=== PATIENT | male | born 1950 | race Caucasian/White ===

== ENCOUNTER → 2016-08-17 | Day surgery (SDC) | payer OTHER ==
[2016-08-11 13:09] VITALS: Ht 175.3 cm; Wt 147.7 kg
[~2016-08-17] VITALS: Ht 175.3 cm; Wt 147.7 kg
[~2016-08-17] MED LIST: ASPCH81X PO; CARB1SOL8 OTB; CLC100 PO; FURO40TA3 PO; GLIP10TA9 PO; LANS30CA12 PO; LIDOCAINE HCL 2% 2 ML VIAL (20MG/ML) ONE; METF-384 PO; MIDAZOLAM HCL 1 MG/ML 2ML VIAL ONE; NITR0.4S UT; PROPOFOL IV EMULSION 10 MG/ML 20 ML VIAL IV ONE; REPA1TAB42 PO; SIMV40TA4 PO; SODIUM CHLORIDE 0.9% 500ML 500 ML IV ONE; VNTHFA/IN INH
[2016-08-17 08:17] VITALS: TEMP 37.4
--- NOTE | 2016-08-17 08:44 | Endo History and Physical ---
History & Physical Date of Service: Aug 17, 2016. Chief Complaint: history of polyps Referring Physician: Sam Quiroz PA-C History of Present Illness history of polyps Past Medical History Diabetes, Arthritis, Fractures, Reflux, Sleep Apnea, Hypertension Past Surgical History Hx Cardiac Surgery: No Hx Internal Defibrillator: No Hx Pacemaker: No Hx Abdominal Surgery: No Hx Post-Op Nausea and Vomiting: No Hx Cancer Surgery: No Hx Thoracic Surgery: No Hx Orthopedic: Yes (RT/LEFT TKA) Hx Urinary Tract Surgery: No Family History Colon CA Social History Smoking Status: Never Smoker Hx Substance Use: No Hx Alcohol Use: No Allergies Coded Allergies: Ether (Verified Adverse Reaction, Mild, VOMITING, 08/11/16) Current Medications Reported Home Medications Medications Dose Route/Sig Max Daily Dose Days Date Category Dose Instructions Lasix (Furosemide) 40 Mg Tab 1.5 Tab PO QAM 08/11/16 Reported Ventolin Hfa (Albuterol) 200 Puffs/25499 Mcg Aers 2-4 Puffs INH Q6H PRN 08/11/16 Reported Prandin (Repaglinide) 1 Mg Tab 1 Mg PO AC 08/11/16 Reported Glucophage (Metformin Hcl) 1,000 Mg Tab 1,000 Mg PO BID 08/11/16 Reported Docusate Sodium 100 Mg Cap 100 Mg PO BID PRN 03/10/14 Reported TAKE WHILE ON NARCOTIC PAIN MEDS. Debrox (Carbamide Peroxide (Otic)) 6.5 % Irena OTB UD PRN 02/27/14 Reported Nitrostat (Nitroglycerin) 0.4 Mg Sub 0.4 Mg UT PRN 07/11/13 Reported NEEDED FOR CHEST PAIN : ONE TABLET UNDER THE TONGUE EVERY 5 MINUTES UP TO 3 DOSES. Glucotrol (Glipizide) 10 Mg Tab 10 Mg PO QPM 07/11/13 Reported TAKE 30 MINUTES BEFORE A MEAL. Zocor (Simvastatin) 40 Mg Tab 40 Mg PO HS 07/11/13 Reported Prevacid (Lansoprazole) 30 Mg Capcr 30 Mg PO QPM 07/11/13 Reported TO TAKE ONCE DAILY BEFORE EVENING MEAL Aspirin Chewable (Aspirin) 81 Mg Chew 81 Mg PO QPM 07/11/13 Reported TAKE WITH FOOD Vital Signs Weight (Kilograms): 147.73 Height (Feet): 5 Height (Inches): 9 Date Time Temp Pulse Resp B/P Pulse Ox O2 Delivery O2 Flow Rate FiO2 08/17/16 08:17 37.4 94 18 158/89 95 Room Air Physical Exam General Appearance: WD/WN, no apparent distress Assessment and Plan colonoscopy today
--- NOTE | 2016-08-17 09:15 | Discharge Instructions ---
Endoscopy Patient Instructions Date / Procedure(s) Performed Aug 17, 2016. Colonoscopy Allergy Information Coded Allergies: Ether (Verified Adverse Reaction, Mild, VOMITING, 08/11/16) Discharge Date / Findings Aug 17, 2016. diverticulosis and hemorrhoids Medication Instructions Stopped Medication(s): no ASA for 2 weeks,last dose Metformin,Prandin,and Glipizide since Tuesday Restart Stopped Medication(s): OK to resume all home medications as above Provider Instructions Activity Restrictions - No exercising or heavy lifting for 24 hours. - Do not drink alcohol the day of the procedure. - Do not drive a car or operate machinery until the day after the procedure. - Do not make any important decisions or sign important papers in 24 hours after the procedure. Following Day: - Return to full activity which may include returning to work/school. Diet Start your diet with liquids and light foods (jello, soup, juice, toast). Then eat your usual diet if not nauseated. Treatment For Common After Affects For mild abdominal pain, bloating, or excessive gas: - Rest - Eat lightly - Lie on right side Follow-Up Information Follow-up with Sam Quiroz PA-C as scheduled Anesthesia Information What You Should Know You have had a procedure that required some medicine to reduce anxiety and discomfort. This treatment is called moderate sedation. After receiving the treatment, you may be sleepy, but you will be able to breathe on your own. The effects of the treatment may last for several hours. Follow these instructions along with Activity/Diet recommendations noted above: * Do NOT do anything where dizziness or clumsiness would be dangerous. * Rest quietly at home today, then you can be up and about tomorrow. * Have a responsible person stay with you the rest of today. * You may have had an I.V. today. If so, you may take the dressing off later today. Recommendations Call your doctor if: * Trouble breathing * Continuous vomiting for more than 24 hours * Temperature above 101 degrees * Severe abdominal pain or bloating * Pain not relieved by pain medicine ordered * There is increased drainage or redness from any incision * A large amount of rectal bleeding greater than 2-3 tablespoons. (If you had a polyp/s removed or have hemorrhoids, a small amount of blood - from the rectum is to be expected.) * You have any unanswered questions or concerns. IN THE EVENT OF A SERIOUS EMERGENCY, GO TO THE NEAREST EMERGENCY ROOM Your discharge instructions were prepared by provider Imani Potts. Patient Instructions Signature Page Roberto Paula Patient (or Guardian) Signature/Date: I have read and understand the instructions given to me by my caregivers. Caregiver/RN/Doctor Signature/Date: The above-named patient and/or guardian has received patient instructions on this date. + Original Patient Signature Page (only) stays with chart. Please make copy for patient.
--- NOTE | 2016-08-17 09:20 | GI REPORT ---
Procedure Date: 08/17/2016 8:43 AM Procedure: Colonoscopy Indications: High risk colon cancer surveillance: Personal history of adenoma with villous component Medicines: Propofol per Anesthesia Complications: No immediate complications. Estimated blood loss: None. Estimated Blood Loss: Estimated blood loss: none. Procedure: Pre-Anesthesia Assessment: - Prior to the procedure, a History and Physical was performed, and patient medications, allergies and sensitivities were reviewed. The patient's tolerance of previous anesthesia was reviewed. - The risks and benefits of the procedure and the sedation options and risks were discussed with the patient. All questions were answered and informed consent was obtained. - Patient identification and proposed procedure were verified prior to the procedure by the physician and the nurse. The procedure was verified in the pre-procedure area in the procedure room. - Mental Status Examination: alert and oriented. Airway Examination: normal oropharyngeal airway and neck mobility. Respiratory Examination: clear to auscultation. CV Examination: normal. Abdominal Examination: bowel sounds present, abdomen soft and non-tender, no masses or organomegaly noted. - ASA Grade Assessment: III - A patient with severe systemic disease. After I obtained informed consent, the scope was passed under direct vision. Throughout the procedure, the patient's blood pressure, pulse, and oxygen saturations were monitored continuously. The Scope was introduced through the anus and advanced to the cecum, identified by appendiceal orifice and ileocecal valve. The colonoscopy was performed without difficulty. The patient tolerated the procedure well. The quality of the bowel preparation was good. Findings: The perianal and digital rectal examinations were normal. Pertinent negatives include normal sphincter tone and no palpable rectal lesions. Multiple small and large-mouthed diverticula were found in the sigmoid colon. Internal hemorrhoids were found during retroflexion. The hemorrhoids were medium-sized and Grade I (internal hemorrhoids that do not prolapse). Impression: - Diverticulosis in the sigmoid colon. - Internal hemorrhoids. - No specimens collected. Recommendation: - Repeat colonoscopy in 3 years for surveillance. - Return to referring physician as previously scheduled. - Discharge patient to home. Imani Potts D.O. Imani Potts DO 08/17/2016 9:19:35 AM This report has been signed electronically. Note Initiated On: 08/17/2016 8:43 AM I attest to the content of the Intraoperative Record and orders documented therein, exceptions below
--- NOTE | 2016-08-17 09:43 | Anesthesiology Progress Note ---
Anesthesia Post Op Note Date & Time Aug 17, 2016 at 09:43 Vital Signs Pain Intensity: 0 Vital Signs Past 12 Hours Date Time Temp Pulse Resp B/P Pulse Ox O2 Delivery O2 Flow Rate FiO2 08/17/16 09:32 100 18 168/77 93 Room Air 08/17/16 09:18 99 16 130/93 95 Diffusion Mask 15 08/17/16 08:17 37.4 94 18 158/89 95 Room Air Notes Mental Status: alert / awake / arousable, participated in evaluation Pt Amnestic to Procedure: Yes Nausea / Vomiting: adequately controlled Pain: adequately controlled Airway Patency, RR, SpO2: stable & adequate BP & HR: stable & adequate Hydration State: stable & adequate Anesthetic Complications: no major complications apparent
[2016-08-17 09:50] VITALS: BP 160/83; PULSE 93; O2SAT 93
== END | disposition home or self-care (01) ==
LOC: C.GI 07:50
PROVIDERS: ATTEND Internal Medicine
DX: Z12.11 Encounter for screening for malignant neoplasm of colon (principal); Z86.010 Personal history of colon polyps; K57.30 Diverticulosis of large intestine without perforation or abscess without bleeding; K64.8 Other hemorrhoids; I10 Essential (primary) hypertension; E11.9 Type 2 diabetes mellitus without complications; Z96.653 Presence of artificial knee joint, bilateral; Z90.89 Acquired absence of other organs; E66.9 Obesity, unspecified; Z68.42 Body mass index [BMI] 45.0-49.9, adult; Z80.0 Family history of malignant neoplasm of digestive organs

== ENCOUNTER 2018-11-24 20:51 | Inpatient (IN) ==
--- OUTSIDE RECORDS SUMMARY | 2018-11-24 20:55 | External Medical Summary | Continuity of Care Document ---
:1950 Author Name Eleni Marshall, Provider Address Unavailable Unavailable , Care Team Providers Name Role Phone [facility] Rolando, Provider Unavailable [email or web address] [email or web address], UNKNOWN Unavailable Unavailable Problems Active medical history not documented Allergies and Adverse Reactions Allergy history not documented Medications Medications not documented Procedures Procedures not documented Immunizations Immunizations not documented Plan of Treatment Planned Observations Planned Goals not documented Results No Known Results Results not documented
[2018-11-24] MEDS ORDERED: SODIUM CHLORIDE 0.9% 1000ML 1,000 ML IV STA (21:47)
[2018-11-24] MEDS ORDERED: VANCOMYCIN CONSULT ACTIVE PRN (21:47)
[2018-11-24] MEDS ORDERED: CEFEPIME 2,000 MG/12.5 ML VIAL IV STA (21:47)
[2018-11-24] MEDS ORDERED: VANCOMYCIN HCL 2,750 MG in SODIUM CHLORIDE 0.9% 500 ML IV ONE (21:47)
[2018-11-24] MEDS ORDERED: ACETAMINOPHEN 500 MG TAB PO STA (21:47)
[2018-11-24] MEDS ORDERED: SODIUM CHLORIDE 0.9% 500 ML IV SCH (22:00)
[2018-11-24 22:17] LABS: Basophils # (auto) 0.01 K/uL (0-0.2); Basophils % (auto) 0.1 %; Eosinophils # (auto) 0.15 K/uL (0-0.5); Hematocrit (blood only) 38.5 % (42-52); Hemoglobin 12.9 g/dL (14.0-18.0); Immature Granulocytes # (auto) 0.03 K/uL (0.00-0.02); Immature Granulocytes % (auto) 0.2 %; Lymphocytes # (auto) 0.38 K/uL (1.2-3.4); Lymphocytes % (auto) 2.6 %; Mean Corpuscular Hgb Conc 33.5 g/dL (32-36); Mean Corpuscular Volume 89.7 fL (80-100); Mean Platelet Volume 9.3 fL (7.4-10.4); Monocytes # (auto) 0.96 K/uL (0.11-0.59); Monocytes % (auto) 6.5 %; Neutrophils # (auto) 13.34 K/uL (1.4-6.5); Neutrophils % (auto) 89.6 %; Platelet Count 238 K/uL (130-400); RDW Coefficient of Variation 14.3 % (11.5-14.5); RDW Standard Deviation 46.9 fL (36.4-46.3); Red Blood Count 4.29 M/uL (4.7-6.1); White Blood Count 14.87 K/uL (4.8-10.8)
[2018-11-24 22:29] LABS: Appearance Urine Clear (Clear); Bilirubin Urine Negative (Negative); Blood Urine Negative (Negative); Color Urine Yellow; Glucose Urine UA 1+ (Negative); Ketones Urine Negative (Negative); Leukocyte Esterase Urine Negative (Negative); Nitrite Urine Negative (Negative); Protein Urine Negative (Negative); Specific Gravity Urine 1.017 (1.000-1.030); Urobilinogen Urine Negative (Negative)
[2018-11-24 22:32] LABS: Alanine Aminotransferase 42 U/L (12-78); Albumin Level 3.5 gm/dl (3.4-5.0); Aspartate Aminotransferase 19 U/L (15-37); BUN Creatinine Ratio 13.3 (10-20); Blood Urea Nitrogen 22 mg/dl (7-18); Calcium 8.1 mg/dl (8.5-10.1); Carbon Dioxide 26 mmol/L (21-32); Chloride 107 mmol/L (98-107); Creatinine Clr Calc Pharmacy 61.5 ml/min; Est GFR (African American) 48.4; Est GFR (Non-African American) 41.7; Glucose 191 mg/dl (70-99); Potassium 4.6 mmol/L (3.5-5.1); Sodium 139 mmol/L (136-145)
--- NOTE | 2018-11-24 22:32 | XRay Report ---
XR chest 1V portable HISTORY: Shortness of breath. COMPARISON: Chest 03/10/2014. FINDINGS: The lungs are clear. Cardiac silhouette is top normal in size. No pleural effusions. No pne umothorax. IMPRESSION: No acute process. Electronically signed by: Chuck Law M.D. 11/24/2018 10:31 PM
[2018-11-24 22:37] LABS: Albumin Globulin Ratio 1.1 (0.9-2); Alkaline Phosphatase 75 U/L (45-117); Bilirubin,Total 0.5 mg/dl (0.2-1); Globulin 3.3 gm/dl (2.5-4.0); Total Protein 6.8 gm/dl (6.4-8.2); Troponin I < 0.015 ng/ml (0-0.045)
[2018-11-24] MEDS ORDERED: OPTIRAY 320 125ml IV PRN (23:27)
[2018-11-25] MEDS ORDERED: IBUPROFEN 200 MG TAB PO STA (01:13)
[2018-11-25] MEDS ORDERED: DOXYCYCLINE HYCLATE 100 MG in DEXTROSE 5% 100 ML IV STA (01:55)
[2018-11-25] MEDS ORDERED: XOPENEX/ATROVENT 1.25mg/0.5MG NEB COMBO NEB STA (01:57)
[2018-11-25] MEDS ORDERED: LEVALBUTEROL 1.25MG/0.5ML NEB INH STA (02:02)
[2018-11-25] MEDS ORDERED: IPRATROPIUM BROMIDE NEB SOLN 0.02% 2.5 ML VIAL INH STA (02:02)
[2018-11-25 02:19] LABS: Magnesium 1.4 mg/dl (1.8-2.4)
[2018-11-25 02:50] LABS: Base Excess ABG -3.3 mEq/L (-9-1.8); HCO3 ABG 22 mmol/L (19-24); Oxygen Saturation ABG 95.3 % (90-95); PCO2 ABG 38 mmHg (35-46); PO2 ABG 77 mm/Hg (80-95); pH ABG 7.37 (7.35-7.45)
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
[2018-11-25 02:54] LABS: Allen Test Pos (Pos)
[2018-11-25] MEDS ORDERED: INSULIN GLARGINE SOLOSTAR 100 UNITS/ML 3 ML PEN SQ STA (03:37)
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
[2018-11-25] MEDS ORDERED: PROMETHAZINE HCL 12.5 MG in SODIUM CHLORIDE 0.9% 50 ML IV PRN (06:09)
[2018-11-25] MEDS ORDERED: GLUCOSE 10 TABS/TUBE PO PRN (06:09)
[2018-11-25] MEDS ORDERED: ACETAMINOPHEN 325 MG TAB PO PRN (06:09)
[2018-11-25] MEDS ORDERED: GLUCAGON FOR INJ 1 MG VIAL SQ PRN (06:09)
[2018-11-25] MEDS ORDERED: NITROGLYCERIN SL 0.4 MG/TAB TAB SL PRN (06:09)
[2018-11-25] MEDS ORDERED: TRAMADOL HCL 50 MG TABLET PO PRN (06:09)
[2018-11-25] MEDS ORDERED: GLUCOSE 40% GEL 15 GM TUBE PO PRN (06:09)
[2018-11-25] MEDS ORDERED: CARBOHYDRATES FOR HYPOGLYCEMIA PO PRN (06:09)
[2018-11-25] MEDS ORDERED: DEXTROSE 50% 50 ML SYRINGE IV PRN (06:09)
[2018-11-25] MEDS ORDERED: SODIUM CHLORIDE 0.9% 1000ML 1,000 ML IV STA (06:22)
[2018-11-25] MEDS ORDERED: LANSOPRAZOLE 30 MG SOLTAB PO ONE (06:30)
[2018-11-25] MEDS ORDERED: ASPIRIN 81 MG ECTAB PO ONE (06:30)
[2018-11-25] MEDS ORDERED: SIMVASTATIN 20 MG TAB PO ONE (06:30)
--- NOTE | 2018-11-25 06:33 | CT Scan Report ---
HEAD CT NONCONTRAST CT DOSE: 1228.53 mGy.cm HISTORY: left facial droop TECHNIQUE: Multiaxial CT images of the head were performed without the use of intravenous contrast. A utomated exposure control was utilized for this study. A dose lowering technique was utilized adheri ng to the principles of ALARA. Comparison: None. Findings: Motion artifact. Fluid level within the right maxillary sinus. Left mastoid effusion. The c alvarium and skull base are intact. The ventricles and sulci are within normal limits. There is no ma ss, hematoma, midline shift, or acute infarct. Impression: 1. Motion artifact. No definite acute intracranial abnormality. 2. Acute right maxillary sinusitis. 3. Left mastoid effusion. Electronically signed by: Chuck Law M.D. 11/25/2018 6:31 AM
[2018-11-25] MEDS: MAGNESIUM SULFATE / D5W 1 GM/100 ML BAG IV SCH ×4 (06:44→16:39)
[2018-11-25] MEDS: LEVALBUTEROL 1.25MG/0.5ML NEB INH SCH ×3 (07:08→18:53)
[2018-11-25] MEDS: IPRATROPIUM BROMIDE NEB SOLN 0.02% 2.5 ML VIAL INH SCH ×3 (07:08→18:53)
--- NOTE | 2018-11-25 07:36 | CT Scan Report ---
CHEST CTA for PULMONARY ARTERIES CT DOSE: 1014.08 mGy.cm HISTORY: Fever. Cough. Short is of breath. PE TECHNIQUE: Multiaxial CT images of the chest were performed following the intravenous administration of contrast to evaluate the pulmonary arteries. Maximal intensity projection images were also obtaine d. A dose lowering technique was utilized adhering to the principles of ALARA. COMPARISON STUDY: Chest CT 03/10/2014. FINDINGS: The visualized liver, spleen, and adrenal glands are unremarkable. The heart is mildly enla rged. Normal soft thickness. No mediastinal lymphadenopathy. A few prominent bilateral hilar lymph no adam remain stable and are likely benign. Normal soft tissue gas. No pleural or pericardial effusions. No evidence for an aortic dissection. No filling defects within the pulmonary arteries to suggest a pulmonary embolus. No suspicious lytic or blastic osseous lesions. No pneumothorax. The central airwa ys are patent. Mild emphysema. A 3 mm nodule within the left upper lobe on image 193. A 4 mm subpleur al nodule within the left lower lobe on image 114. Patchy groundglass densities at the lung bases fav or nondependent change. Otherwise, no focal lung consolidations to suggest pneumonia. IMPRESSION: 1. No evidence for pulmonary embolus. 2. Mild emphysema. 3. Mild cardiomegaly. 4. There are 2 subcentimeter indeterminate pulmonary nodules within the left lung with the largest me asuring 4 mm. Please refer to the chart below for recommended follow-up. Please refer to below summary of Fleischner criteria recommendations for follow-up of incidental CT n odules (Eula Gunderson, Guidelines for management of small pulmonary nodules detected on CT scans: A sta tement from the Fleischner Society, Radiology 237: [phone].) SOLID NODULES Solitary nodule size: <6 mm * Low risk patients: no follow-up needed * high risk patients: optional CT at 12 months Solitary nodule size: 6-8 mm * Low risk patients: follow-up at 6-12 months, then consider further follow-up at 18-24 months * high risk patients: initial follow-up CT at 6-12 months and then at 18-24 months if no change Solitary nodule size: >8 mm * either low or high risk patients - consider follow-up CT at 3 months, and/or CT-PET, and/or biopsy Multiple nodules size: <6 mm * Low risk patients: no routine follow-up * high risk patients: optional CT at 12 months Multiple nodules size: 6-8 mm * Low risk patients: follow-up at 3-6 months, then consider further follow-up at 18-24 months * high risk patients: follow-up at 3-6 months, then at 18-24 months if no change Multiple nodules size: >8 mm * Low risk patients: follow-up at 3-6 months, then consider further follow-up at 18-24 months * high risk patients: follow-up at 3-6 months, then at 18-24 months if no change Note: newly detected indeterminate nodule in persons 35 years of age or older. * Low risk patients: minimal or absent history of smoking and/or other known risk factors * high risk patients: history of smoking or of other known risk factors (e.g. first degree relative with lung cancer, or exposure to asbestos, radon, uranium) * if a nodule up to 8 mm is partly solid or is ground glass further follow-up is required after 24 m onths to exclude possible slow growing adenocarcinoma (DUSTY) SUBSOLID NODULES Solitary pure ground-glass nodule * nodule size <6 mm - no CT follow-up required * nodule size >=6 mm - follow-up CT at 6-12 months, then every 2 years until 5 years Solitary part-solid nodule * nodule size <6 mm - no CT follow-up required * nodule size >=6 mm - follow-up CT at 3-6 months. If unchanged, and solid component remains <6 mm, then annual follow-up for 5 years Multiple subsolid nodules * nodule size <6 mm - follow-up CT at 3-6 months, consider further follow-up at 2 and 4 years if sta ble * nodule size >=6 mm - follow-up CT at 3-6 months, subsequent management based on the most suspiciou s nodule(s) Electronically signed by: Chuck Law M.D. 11/25/2018 7:34 AM
[2018-11-25 07:40] LABS: INR 1.1 (0.9-1.1)
[2018-11-25 07:41] LABS: Partial Thromboplastin Ratio 1.1
[2018-11-25 07:55] LABS: Lyme Ab IgG w/WB Rflx Negative (Negative); Lyme Ab IgM w/WB Rflx Negative (Negative)
[2018-11-25] MEDS ORDERED: XOPENEX/ATROVENT 1.25mg/0.5MG NEB COMBO NEB SCH (08:00)
[2018-11-25] MEDS: INSULIN ASPART 100 UNITS/ML 3 ML PEN SC SCH ×4 (08:26→20:18)
[2018-11-25 08:47] LABS: Est GFR (African American) 54.3; Potassium 4.5 mmol/L (3.5-5.1)
[2018-11-25 08:48] LABS: BUN Creatinine Ratio 13.9 (10-20); Calcium 8.2 mg/dl (8.5-10.1); Creatinine Clr Calc Pharmacy 67.7 ml/min; Est GFR (Non-African American) 46.8; Magnesium 1.6 mg/dl (1.8-2.4)
[2018-11-25 08:50] LABS: Basophils # (auto) 0.01 K/uL (0-0.2); Basophils % (auto) 0.1 %; Hematocrit (blood only) 38.6 % (42-52); Immature Granulocytes # (auto) 0.06 K/uL (0.00-0.02); Immature Granulocytes % (auto) 0.4 %; Lymphocytes # (auto) 0.43 K/uL (1.2-3.4); Lymphocytes % (auto) 2.6 %; Mean Corpuscular Hgb Conc 33.7 g/dL (32-36); Mean Corpuscular Volume 88.9 fL (80-100); Mean Platelet Volume 9.6 fL (7.4-10.4); Monocytes # (auto) 0.39 K/uL (0.11-0.59); Monocytes % (auto) 2.3 %; Neutrophils # (auto) 15.82 K/uL (1.4-6.5); Neutrophils % (auto) 94.6 %; Platelet Count 226 K/uL (130-400); RDW Coefficient of Variation 14.2 % (11.5-14.5); RDW Standard Deviation 46.5 fL (36.4-46.3); Red Blood Count 4.34 M/uL (4.7-6.1); White Blood Count 16.71 K/uL (4.8-10.8)
[2018-11-25] MEDS ORDERED: DOCUSATE SODIUM 100 MG CAP PO PRN (09:00)
[2018-11-25] MEDS: HEPARIN SOD 5,000 UNIT/0.5 ML VIAL SQ SCH ×2 (13:13→21:24)
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
[2018-11-25] MEDS: MAGNESIUM OXIDE 400 MG TAB PO SCH (20:19)
[2018-11-25] MEDS: DOXYCYCLINE HYCLATE 100 MG CAP PO SCH (20:21)
[2018-11-25] MEDS ORDERED: SIMVASTATIN 40 MG TAB PO SCH (21:00)
[2018-11-25] MEDS ORDERED: ASPIRIN 81 MG ECTAB PO SCH (21:00)
[2018-11-25] MEDS ORDERED: LANSOPRAZOLE 30 MG SOLTAB PO SCH (21:00)
[2018-11-26] MEDS: IPRATROPIUM BROMIDE NEB SOLN 0.02% 2.5 ML VIAL INH SCH ×2 (01:56→07:03)
[2018-11-26] MEDS: LEVALBUTEROL 1.25MG/0.5ML NEB INH SCH ×2 (01:56→07:03)
[2018-11-26] MEDS: HEPARIN SOD 5,000 UNIT/0.5 ML VIAL SQ SCH ×2 (05:31→12:14)
[2018-11-26 05:49] LABS: Basophils # (auto) 0.02 K/uL (0-0.2); Basophils % (auto) 0.2 %; Hematocrit (blood only) 37.4 % (42-52); Hemoglobin 12.4 g/dL (14.0-18.0); Immature Granulocytes # (auto) 0.02 K/uL (0.00-0.02); Immature Granulocytes % (auto) 0.2 %; Lymphocytes # (auto) 1.55 K/uL (1.2-3.4); Lymphocytes % (auto) 15.2 %; Mean Corpuscular Hgb Conc 33.2 g/dL (32-36); Mean Corpuscular Volume 89.3 fL (80-100); Mean Platelet Volume 9.1 fL (7.4-10.4); Monocytes # (auto) 0.82 K/uL (0.11-0.59); Monocytes % (auto) 8.1 %; Neutrophils # (auto) 7.66 K/uL (1.4-6.5); Neutrophils % (auto) 75.3 %; Platelet Count 235 K/uL (130-400); RDW Coefficient of Variation 14.4 % (11.5-14.5); RDW Standard Deviation 47.1 fL (36.4-46.3); Red Blood Count 4.19 M/uL (4.7-6.1); White Blood Count 10.17 K/uL (4.8-10.8)
[2018-11-26 06:15] LABS: BUN Creatinine Ratio 16.6 (10-20); Calcium 8.1 mg/dl (8.5-10.1); Creatinine Clr Calc Pharmacy 72.5 ml/min; Est GFR (Non-African American) 50.9; Magnesium 2.5 mg/dl (1.8-2.4); Potassium 4.1 mmol/L (3.5-5.1)
[2018-11-26] MEDS: MAGNESIUM OXIDE 400 MG TAB PO SCH (07:27)
[2018-11-26] MEDS: DOXYCYCLINE HYCLATE 100 MG CAP PO SCH (07:27)
[2018-11-26] MEDS: INSULIN ASPART 100 UNITS/ML 3 ML PEN SC SCH ×2 (08:44→12:14)
[2018-11-26] MEDS ORDERED: LEVALBUTEROL HCL 1.25 MG/3 ML NEB INH PRN ×2 (09:21→09:37)
[2018-11-26] MEDS ORDERED: IPRATROPIUM BROMIDE NEB SOLN 0.02% 2.5 ML VIAL INH PRN (09:35)
[2018-11-26] MEDS ORDERED: LEVALBUTEROL 1.25MG/0.5ML NEB INH PRN (09:37)
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
[2018-11-28 15:49] LABS: EBV Nuclear Ag Antibody < 18.00 U/ML; EBV Virus Capsid Ag IgG Ab < 18.00 U/ML; Epstein Barr Virus Early Ag Ab < 9.00 U/ML
[2018-11-30 23:22] LABS: Ehrlichia chaff DNA Bld Not Detected (Not Detected); Q Fever IgG, Phase I NEGATIVE; Q Fever Phase I IgM Antibody NEGATIVE; Q Fever Phase II IgG Antibody POSITIVE; Q Fever Phase II IgM Antibody NEGATIVE; R. typhi IgG Ab Not Detected (Not Detected); R. typhi IgM Ab Not Detected (Not Detected); RMSF IgG Ab Not Detected (Not Detected); RMSF IgM Ab Not Detected (Not Detected)
== END 2018-11-26 14:30 | disposition home or self-care (01) | DRG 871 ==
LOC: ED 20:51 → 2N 11-25 03:56
DX: I12.9 Hypertensive chronic kidney disease with stage 1 through stage 4 chronic kidney disease, or unspecified chronic kidney disease; D63.1 Anemia in chronic kidney disease; Z79.4 Long term (current) use of insulin; J96.01 Acute respiratory failure with hypoxia; N18.3 Chronic kidney disease, stage 3 (moderate); J40 Bronchitis, not specified as acute or chronic; J18.9 Pneumonia, unspecified organism; E11.22 Type 2 diabetes mellitus with diabetic chronic kidney disease; A41.9 Sepsis, unspecified organism; N17.9 Acute kidney failure, unspecified

== ENCOUNTER 2022-02-11 12:01 | Inpatient (IN) ==
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
--- NOTE | 2022-02-11 12:50 | XRay Report ---
SINGLE VIEW CHEST CLINICAL HISTORY: Atypical chest pain FINDINGS: An AP, portable, upright chest radiograph is compared to study dated 07/20/2021 and correlat ed with chest CT dated 11/24/2018. The heart is enlarged. The pulmonary vasculature is known congestive . Chronic interstitial thickening is similar to previous. Atelectasis is noted the lung bases. The froilan ngs and pleural spaces are otherwise clear. No pneumothorax is seen. The skeletal structures are oste openic. The bony thorax is grossly intact. IMPRESSION: Cardiomegaly with no active disease in the chest. ACT 112: Negative or not required by law. Electronically signed by: Kalia Khan M.D. 02/11/2022 12:49 PM
[2022-02-11 13:03] LABS: Basophils # (auto) 0.02 K/uL (0-0.2); Basophils % (auto) 0.8 %; Eosinophils # (auto) 0.08 K/uL (0-0.50); Eosinophils % (auto) 3.1 %; Hematocrit (blood only) 32.4 % (40.1-51.0); Hemoglobin 10.6 g/dl (14.0-18.0); Immature Granulocytes # (auto) 0.01 K/uL (0.00-0.02); Immature Granulocytes % (auto) 0.4 %; Lymphocytes # (auto) 0.81 K/uL (1.2-3.4); Lymphocytes % (auto) 31.2 %; Mean Corpuscular Hemoglobin 34.4 pg (25.0-34.0); Mean Corpuscular Hgb Conc 32.7 g/dL (32.0-36.0); Mean Corpuscular Volume 105.2 fL (80.0-100.0); Mean Platelet Volume 10.4 fL (9.4-12.4); Monocytes # (auto) 0.34 K/uL (0.24-0.82); Monocytes % (auto) 13.1 %; Neutrophils # (auto) 1.34 K/uL (1.4-6.5); Neutrophils % (auto) 51.4 %; Platelet Count 240 K/uL (130-400); RDW Coefficient of Variation 17.1 % (11.5-14.5); RDW Standard Deviation 65.8 fL (36.4-46.3); Red Blood Count 3.08 M/uL (4.63-6.08)
[2022-02-11 13:14] LABS: INR 1.1 (0.9-1.1); Partial Thromboplastin Time 28.6 Seconds (21.0-31.0); Prothrombin Time 11.6 Seconds (9.0-12.0)
[2022-02-11 13:33] LABS: Troponin I High Sensitivity 25.6 pg/ml (0-20)
[2022-02-11 13:44] LABS: Albumin Level 4.1 gm/dl (3.4-5.0); BUN Creatinine Ratio 15.1 (10-20); Bilirubin Direct 0.1 mg/dl (0-0.2); Bilirubin,Total 0.8 mg/dl (0.2-1.0); Calcium 8.2 mg/dl (8.5-10.1); Creatinine Clr Calc Pharmacy 63.2 ml/min; Est GFR (African American) 54.9 ml/min; Est GFR (Non-African American) 47.4 ml/min; Magnesium 1.2 mg/dl (1.7-2.4); Potassium 4.4 mmol/L (3.5-5.1); Total Protein 6.6 gm/dl (6.0-8.3)
[2022-02-11] MEDS: MAGNESIUM SULFATE / D5W 1 GM/100 ML BAG IV SCH ×4 (13:59→22:26)
[2022-02-11 14:16] LABS: Influenza A virus by PCR Negative (Neg); Influenza B virus by PCR Negative (Neg); RSV by PCR Negative (Neg); SARS CoV2 RNA(COVID-19) InHosp NEGATIVE (Negative)
[2022-02-11] MEDS ORDERED: ASPIRIN 81 MG CHEW PO STA (14:33)
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
--- NOTE | 2022-02-11 16:06 | Electrocardiogram Report ---
Test Reason : Blood Pressure : / mmHG Vent. Rate : 110 BPM Atrial Rate : 110 BPM P-R Int : 176 ms QRS Dur : 084 ms QT Int : 360 ms P-R-T Axes : 047 -41 075 degrees QTc Int : 487 ms Sinus tachycardia with frequent Premature ventricular complexes Left axis deviation Poor R wave progression, consider anterior OH vs. lead placement vs. LVH Abnormal ECG When compared with ECG of 24-NOV-2018 22:12, Premature ventricular complexes are now Present Confirmed by Trent Christie ([id number]) on 02/11/2022 4:06:24 PM Referred By: REFERRED SELF Confirmed By:Trent Christie
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
[2022-02-11] MEDS ORDERED: GLUCOSE 10 TAB/TUBE PO PRN (16:50)
[2022-02-11] MEDS ORDERED: ALUMINUM/MAGNESIUM SUSP 30 ML UDC PO PRN (16:50)
[2022-02-11] MEDS ORDERED: ACETAMINOPHEN 325 MG TAB PO PRN (16:50)
[2022-02-11] MEDS ORDERED: POLYETHYLENE (MIRALAX) 17 GM PACK PO PRN (16:50)
[2022-02-11] MEDS ORDERED: CARBOHYDRATES FOR HYPOGLYCEMIA PO PRN (16:50)
[2022-02-11] MEDS ORDERED: GLUCAGON FOR INJ 1 MG VIAL SQ PRN (16:50)
[2022-02-11] MEDS ORDERED: GLUCOSE 40% GEL 15 GM TUBE PO PRN (16:50)
[2022-02-11] MEDS ORDERED: ALBUTEROL HFA 8 GM INHALER INH PRN (16:50)
[2022-02-11] MEDS ORDERED: DEXTROSE 50% 50 ML SYRINGE IV PRN (16:50)
[2022-02-11] MEDS: INSULIN ASPART PER UNIT SC SCH ×2 (17:19→20:09)
[2022-02-11 18:32] LABS: Magnesium 1.6 mg/dl (1.7-2.4)
[2022-02-11] MEDS: METOPROLOL TARTRATE 25 MG TAB PO SCH (18:35)
[2022-02-11 18:39] LABS: Troponin I High Sensitivity 27.7 pg/ml (0-20)
[2022-02-11] MEDS: LANTUS PER UNIT CHARGE SQ SCH (20:10)
[2022-02-11] MEDS: ENOXAPARIN INJ 40 MG/0.4 ML SYR SQ SCH (20:11)
[2022-02-12] MEDS ORDERED: SODIUM CHLORIDE 0.9% 1000ML 1,000 ML IV SCH
[2022-02-12] MEDS: INSULIN ASPART PER UNIT SC SCH ×4 (07:25→20:54)
[2022-02-12] MEDS: LANTUS PER UNIT CHARGE SQ SCH ×2 (08:05→20:54)
[2022-02-12] MEDS: LORATADINE 10 MG TAB PO SCH ×2 (08:29→20:51)
[2022-02-12] MEDS: lisinopril 10 MG TAB PO SCH (08:29)
[2022-02-12] MEDS: ATORVASTATIN 40 MG TAB PO SCH (08:31)
[2022-02-12] MEDS: CHOLECALCIFEROL 1,000 UNITS 25 MCG TAB PO SCH (08:32)
[2022-02-12] MEDS: CYANOCOBALAMIN (B-12) 500 MCG TABLET PO SCH (08:32)
[2022-02-12] MEDS: METOPROLOL TARTRATE 25 MG TAB PO SCH ×2 (08:33→20:51)
[2022-02-12] MEDS: PANTOprazole 40 MG TAB PO SCH (08:33)
[2022-02-12] MEDS: PYRIDOXINE HCL 50 MG TAB PO SCH (08:33)
[2022-02-12 08:43] LABS: Basophils # (auto) 0.03 K/uL (0-0.2); Basophils % (auto) 0.9 %; Eosinophils # (auto) 0.05 K/uL (0-0.50); Eosinophils % (auto) 1.5 %; Hematocrit (blood only) 32.7 % (40.1-51.0); Hemoglobin 10.8 g/dl (14.0-18.0); Immature Granulocytes # (auto) 0.01 K/uL (0.00-0.02); Immature Granulocytes % (auto) 0.3 %; Lymphocytes # (auto) 0.94 K/uL (1.2-3.4); Lymphocytes % (auto) 28.1 %; Mean Corpuscular Hemoglobin 34.8 pg (25.0-34.0); Mean Corpuscular Volume 105.5 fL (80.0-100.0); Mean Platelet Volume 10.1 fL (9.4-12.4); Monocytes # (auto) 0.46 K/uL (0.24-0.82); Monocytes % (auto) 13.8 %; Neutrophils # (auto) 1.85 K/uL (1.4-6.5); Neutrophils % (auto) 55.4 %; Platelet Count 244 K/uL (130-400); RDW Coefficient of Variation 17.2 % (11.5-14.5); White Blood Count 3.34 K/ul (4.8-10.8)
[2022-02-12] MEDS ORDERED: FUROSEMIDE 20 MG TAB PO SCH (09:00)
[2022-02-12 09:23] LABS: Ferritin 76.4 ng/ml (8-388)
[2022-02-12 09:31] LABS: Folate (Folic Acid) 11.72 ng/ml (>5.38)
[2022-02-12 09:36] LABS: BUN Creatinine Ratio 15.6 (10-20); Calcium 8.7 mg/dl (8.5-10.1); Creatinine Clr Calc Pharmacy 68.4 ml/min; Est GFR (African American) 60.4 ml/min; Est GFR (Non-African American) 52.1 ml/min; Potassium 4.6 mmol/L (3.5-5.1)
[2022-02-12 11:01] LABS: Iron 104 mcg/dl (35-175); Total Iron Binding Cap Calc 297 mcg/dl (250-450); Transferrin (FE) Percent Satur 35 % (20-50); Unsaturated Iron Binding Cap 193 mcg/dl (155-355)
--- NOTE | 2022-02-12 11:33 | Pre Anesthesia Assessment ---
Date of Service February 12, 2022 Pre Sedation Assessment Vital Signs Temp Pulse Pulse Resp BP Pulse Ox O2 Del Method 02/12/22 14:00 36.6 C 82 16 137/72 94 Nasal Cannula 02/12/22 13:46 68 16 132/7 L 98 Room Air 02/12/22 13:29 70 16 140/80 98 Room Air 02/12/22 11:00 36.8 C 77 16 149/78 H 96 02/12/22 11:38 84 18 157/83 H 98 Room Air 02/12/22 08:34 103 H 139/79 02/12/22 06:45 78 02/12/22 06:38 36.7 C 79 18 124/72 90 Room Air 02/12/22 02:45 36.7 C 68 18 120/71 91 Room Air 02/11/22 22:50 36.9 C 71 18 113/69 90 Room Air 02/11/22 20:30 Room Air 02/11/22 19:00 36.8 C 88 18 143/84 H 92 Room Air 02/11/22 16:58 Nasal Cannula 02/11/22 16:28 37.3 C 103 H 24 158/96 H 100 Nasal Cannula O2 Flow Rate 02/12/22 14:00 2 02/12/22 13:46 02/12/22 13:29 02/12/22 11:00 02/12/22 11:38 02/12/22 08:34 02/12/22 06:45 02/12/22 06:38 02/12/22 02:45 02/11/22 22:50 02/11/22 20:30 02/11/22 19:00 02/11/22 16:58 2 02/11/22 16:28 Cardiovascular + regular rate and + regular rhythm + S1 normal and + S2 normal; no murmur + edema (1+ B/L lower extremity edema stasis changes) Respiratory + respiratory effort normal; no respiratory distress and no labored breathing no crackles, no rales, no rhonchi and no wheezes Pre-Sedation Airway Assessment Smoking Status: Never smoker 3 NPO Status Date of Last Intake of Solid Food: 02/11/22 Time of Last Intake of Solid Foods: 22:00 Procedure Planning Contraindications for Sedation: none Current Medications Reviewed: Yes Notes The planned sedation has been discussed with the patient. Informed Consent was obtained. I have identified the patient, determined the appropriateness of sedation and have assessed the patient immediately prior to the procedure. All medicine(s) and interventions are by my order.
[2022-02-12] MEDS ORDERED: fentaNYL citrate 100 MCG/2 ML VIAL ONE (12:00)
[2022-02-12] MEDS ORDERED: MIDAZOLAM HCL 1 MG/ML 2ML VIAL ONE (12:00)
[2022-02-12] MEDS ORDERED: niCARdipine HCL INJ 2.5 MG/ML 10 ML AMP ONE (12:00)
[2022-02-12] MEDS ORDERED: HEPARIN (PORCINE) 1000 UNIT/ML 10 ML (CATH LAB USE ONLY) ONE (12:00)
[2022-02-12] MEDS ORDERED: NITROGLYCERIN/D5W 100MCG/ML 20ML SYR ONE (12:01)
--- NOTE | 2022-02-12 12:50 | Post Anesthesia Assessment ---
Date of Service February 12, 2022 Post Sedation Assessment Vital Signs Temp Pulse Pulse Resp BP Pulse Ox O2 Del Method 02/12/22 14:00 36.6 C 82 16 137/72 94 Nasal Cannula 02/12/22 13:46 68 16 132/7 L 98 Room Air 02/12/22 13:29 70 16 140/80 98 Room Air 02/12/22 11:00 36.8 C 77 16 149/78 H 96 02/12/22 11:38 84 18 157/83 H 98 Room Air 02/12/22 08:34 103 H 139/79 02/12/22 06:45 78 02/12/22 06:38 36.7 C 79 18 124/72 90 Room Air 02/12/22 02:45 36.7 C 68 18 120/71 91 Room Air 02/11/22 22:50 36.9 C 71 18 113/69 90 Room Air 02/11/22 20:30 Room Air 02/11/22 19:00 36.8 C 88 18 143/84 H 92 Room Air 02/11/22 16:58 Nasal Cannula 02/11/22 16:28 37.3 C 103 H 24 158/96 H 100 Nasal Cannula O2 Flow Rate 02/12/22 14:00 2 02/12/22 13:46 02/12/22 13:29 02/12/22 11:00 02/12/22 11:38 02/12/22 08:34 02/12/22 06:45 02/12/22 06:38 02/12/22 02:45 02/11/22 22:50 02/11/22 20:30 02/11/22 19:00 02/11/22 16:58 2 02/11/22 16:28 Recovery Score Activity: Moves 4 extremities Respiration: Deep Breath/Cough Circulation: +/-20% PreAnes Value Consciousness: Arouseable (by name) Oxygen Saturation: O2 needed for >90% Discharge Sedation Level of Care: Phase I Post Sedation Plan On clinical assessment, the patient appears to have tolerated the sedation without complications. Patient is recovering as anticipated. Patient will continue to be monitored by nursing and may be discharged when sedation discharge criteria are met per below protocol. Upon Completions of procedure up to 15 minutes continue every 5 minute vital signs and the P.A.R. score; then discharge to a Phase I or Fast Track to Phase II per the following guidelines: * Discharge Patient to appropriate Phase II area if PAR is 8 or greater or return to pre- procedure baseline. The post - procedure orders will be as directed. * If PAR score is less than 8 or not return to pre-procedure baseline then patient will follow Phase I monitoring till PAR is reached for Phase II. The Phase I may be done in procedure room or may call to secure a Phase I area. * If naloxone or flumazenil are used for reversal, hold in Phase I for continued monitoring from when last reversal dose was given for a minimum of 60 minutes or longer pending the nurse and/or physician discretion of patient condition before discharge to Phase II. Please call the Sedation Physician to re-evaluate and complete post-note for discharge to Phase II area. Do NOT discharge from procedure sedation or Phase 1 until post- sedation evaluation note is complete by procedure /sedation MD Sedation Discharge Instructions to be given to the patient at discharge to home.
--- NOTE | 2022-02-12 12:52 | Cardiac Catheterization ---
Cardiac Cath Procedure Full Procedure Date February 12, 2022 Pre-Procedure Diagnosis Pre-Procedure Diagnosis: Angina, CHF and Arrhythmia AUC Score AUC Score: 8 Post-Procedure Diagnosis Post-Procedure Diagnosis: Moderate CAD and Elevated Intracardiac Pressures Procedure(s) Performed Procedure(s) Performed: Coronary Angiography and Left Heart Cath Final Application Reviewer Avila Ervin DO Accounting Advisory Services Manager(s) [place]inton RTR Estimated Blood Loss Estimated Blood Loss: 5cc Medication(s) Medication(s): Fentanyl, Heparin, Lidocaine 1%, Nicardipine, Nitroglycerin and Versed Summary of Findings Right dominant coronary anatomy. Left main cannulated with a Eden multipurpose catheter. The left main trifurcates in left anterior descending, ramus intermedius, left circumflex arteries. The distal left main demonstrates a mild, 20% taper. The proximal segment of the left anterior descending artery demonstrates a moderate stenosis ranging up to 50% in severity. Stenosis may be more severe when visualized in caudal views. The mid to distal left anterior descending artery demonstrates mild luminal irregularities stenosis ranging up to 10%. The LAD gives rise to 2 diagonal branch vessels which demonstrate mild luminal irregularities, 10%. Ramus intermedius is a moderate caliber vessel. There are mild luminal irregularities in the midsegment with stenosis ranging up to 20%. Left circumflex is a large nondominant vessel giving rise to a high obtuse marginal branch vessel. Left circumflex and obtuse marginal branch vessel are free of significant obstructive disease. The right coronary artery is a large dominant vessel giving rise to posterior descending and posterior lateral branch artery. The right coronary artery demonstrates diffuse luminal irregularities with stenosis ranging from 10-20%. The posterior descending artery is a large vessel with mild luminal irregularities. The right posterior lateral branch vessel is also a large-caliber vessel and free of significant obstructive disease. Hemodynamics Rest Ao:: 136/76/113 Final Ao: 140/67/95 LV: 140/13/19 Recommendations Recommendations: Management Recommendatons (FFR LAD) Specimens Specimens: None Radiation Exposure (mGy) 1877 Contrast (mls) 60 Fluids (cc crystalloids) Fluids (cc crystalloids): 100 Nss Drains Drains: N/A Anesthesia Moderate sedation. Start 1215. End 1245. Sedation monitor, Luis WALTERS Procedural Complication(s) None Disposition recyclable materials collector for FFR I attest to the content of the Intraoperative Record and any orders documented therein. Any exceptions are noted below. ACC Data: Offset Plate Maker Cardiac Status Clinical evaluation leading to the procedure 71-year-old patient presented with exertional angina, class II-III. Due to significant risk factors, cardiac catheterization recommended for coronary angiography and left heart catheterization. CAD Presenation: Stable angina Diagnostic Physicians Name: Avila Ervin DO Closure Device Percutaneous Entry Location: Radial Closure Device: Radial Band Recommendations: Management Recommendatons (FFR LAD) Intraprocedure Events Significant Disection: No Perforation: No
[2022-02-12] MEDS ORDERED: ADENOSINE IV SOLN 3 MG/ML 20 ML VIAL IV ONE (12:53)
--- NOTE | 2022-02-12 14:04 | Cardiac Catheterization ---
[facility] Data: Scientific Informatics Leader Cardiac Status Clinical evaluation leading to the procedure CAD Presenation: Stable angina Diagnostic Physicians Name: Matias Alvarez MD, PhD Closure Device Recommendations: Medical Therapy and/or Counseling (Guideline directed medical therapy for secondary prevention of coronary disease. If refractory symptoms can consider PCI or transfer to tertiary center for additional evaluation.) Cardiac Cath Procedure Full Procedure Date February 12, 2022 Pre-Procedure Diagnosis Pre-Procedure Diagnosis: Angina, CHF and Arrhythmia AUC Score AUC Score: 8 Post-Procedure Diagnosis Post-Procedure Diagnosis: Moderate CAD and Elevated Intracardiac Pressures Procedure(s) Performed Procedure(s) Performed: IVUS and Fractional Flow [place] Helper Matias Alvarez MD, PhD Mortgage Originator(s) Quinton RTR Estimated Blood Loss Estimated Blood Loss: 5cc Medication(s) Medication(s): Fentanyl, Heparin, Lidocaine 1%, Nicardipine, Nitroglycerin and Versed Summary of Findings Brief description: Patient was already on the table with a right radial artery sheath in place. Diagnostic coronary angiography was performed by Dr. Avila Ervin. Patient had a angiographically intermediate lesion in the LAD. I was asked to evaluate further. We proceeded first with Pa/Pd (analysis). ACT was checked and additional IV heparin was provided. A 6 Irish EBU 3.0 guide catheter was used to engage the left main coronary. Through this, a BMW universal guidewire was advanced and positioned distally in the LAD. Coronary angiography was also performed. Then, the Navvus microcatheter was advanced and positioned with the transducer at the distal catheter tip. The system was flushed with normal saline and pressures were equalized. The microcatheter was then advanced beyond the lesion in the mid LAD. PD/PA analysis was performed and was borderline significant. We then performed FFR using infusion of adenosine at 140 mcg/kg/min. Peak FFR was measured. We next decided to evaluate using the IVUS catheter. The microcatheter was removed. The [employer] IVUS catheter was then advanced. Distal left main was evaluated and had mild plaque. Then, the lesion in the mid LAD was evaluated. Minimal luminal area was measured twice. IVUS catheter was then removed from the patient. The guide catheter was then removed. Radial artery sheath was removed. Hemostasis was obtained using the TR band. Patient remained hemodynamically stable and asymptomatic. He was returned to the recovery area. This ended the case. Findings: Resting Pd/Pa: 0.92, this is borderline significant. FFR analysis: 0.75, this is considered hemodynamically significant. IVUS MLA: 5.3 mm, 5.5 mm. These are not considered hemodynamically significant. These results are equivocal. Angiographically the mid LAD appears to have no more than 50% stenosis but is tortuous. The resting Pd/Pa and FFR with Navvus catheter are surrogates for Doppler wave wire analysis (IFR/FFR respectively). However, the IVUS did not show MLA considered to be significant (3.0 mm for proximal LAD, 2.75 mm for mid and distal LAD). The tortuosity in this segment may have affected either the Navvus catheter results or the IVUS results. In either case, guideline directed medical therapy as first-line is recommended. If symptoms remain refractory then alternative hemodynamic evaluation (FFR/IFR using Doppler wave wire) or PCI to the segment can be considered. Hemodynamics Rest Ao:: 144/70 mmHg, mean 105 mmHg Final Ao: 122/78 mmHg, mean 97 mmHg LV: Not performed Recommendations Recommendations: Medical Therapy and/or Counseling (Guideline directed medical therapy for secondary prevention of coronary disease. If refractory symptoms can consider PCI or transfer to tertiary center for additional evaluation.) Specimens Specimens: None Radiation Exposure (mGy) 2718, 13.7 minutes fluoroscopy time Contrast (mls) 100 mL Fluids (cc crystalloids) Fluids (cc crystalloids): 100 Nss Drains Drains: N/A Procedural Complication(s) None Disposition Recovery Room\PACU I attest to the content of the Intraoperative Record and any orders documented therein. Any exceptions are noted below. PG Care Time/CCT Total # of Minutes Spent Total Time Spent with Patient: Total time spent is greater than 50% in coordination of care (as documented) at patient's floor/unit and/or counseling patient:
--- NOTE | 2022-02-12 14:11 | Cardiology Progress Note ---
Date of Service February 12, 2022 Assessment & Plan (1) Exertional angina: (2) Elevated troponin: (3) RAMOS (dyspnea on exertion): (4) Cardiomyopathy: (5) Frequent PVCs: (6) CKD (chronic kidney disease) stage 3, GFR 30-59 ml/min: (7) Hypoxia: (8) Anemia, macrocytic: Plan Results of cardiac catheterization discussed with family and patient. PCI not recommended by interventional cardiology at this time. Medical management recommended. At Imdur 30 mg daily. Titrate Lasix to 40 mg daily beginning in a.m. Continue metoprolol tartrate with transition to succinate formulation at time of discharge. Patient instructed to avoid use of [id number] weight loss pills and other stimulants. Further evaluation of cardiomyopathy with SPEP, UPEP, free light chains, and serum ferritin. Admission and Anticipated Discharge Date Admission Date: February 11, 2022 Subjective Patient seen and examined at the bedside. Cardiac catheterization demonstrating moderate proximal LAD. See separate report. Review of Systems Review of Systems: All systems reviewed & are unremarkable except as noted in Subjective Physical Exam Constitutional: well nourished and + obese; no acute distress Respiratory: normal respiratory effort; no respiratory distress and no labored breathing Auscultation: no crackles, no rales, no rhonchi and no wheezes Cardiovascular: Rate/Rhythm: regular rate and regular rhythm Heart Sounds: normal S1 and normal S2; no murmur Vessels: femoral pulses present and radial pulses present; no JVD Extremities: + edema (1+ B/L lower extremity edema stasis changes) Gastrointestinal (Abdomen): Inspection/Auscultation: abdomen not distended Percussion/Palpation: abdomen soft; abdomen nontender, no guarding and abdomen not rigid Neurologic: CN's II-XI intact bilaterally and moves all extremities; no focal motor deficits Psychiatric: A+Ox3, euthymic affect Results & Data ([facility]) Vital Signs (Past 12 Hours) Vital Signs Temp Pulse Pulse Resp BP Pulse Ox O2 Del Method 02/12/22 14:00 36.6 C 82 16 137/72 94 Nasal Cannula 02/12/22 13:46 68 16 132/7 L 98 Room Air 02/12/22 13:29 70 16 140/80 98 Room Air 02/12/22 11:00 36.8 C 77 16 149/78 H 96 02/12/22 11:38 84 18 157/83 H 98 Room Air 02/12/22 08:34 103 H 139/79 02/12/22 06:45 78 02/12/22 06:38 36.7 C 79 18 124/72 90 Room Air 02/12/22 02:45 36.7 C 68 18 120/71 91 Room Air O2 Flow Rate 02/12/22 14:00 2 02/12/22 13:46 02/12/22 13:29 02/12/22 11:00 02/12/22 11:38 02/12/22 08:34 02/12/22 06:45 02/12/22 06:38 02/12/22 02:45
[2022-02-12] MEDS: ISOSORBIDE MONO EXTENDED REL 30 MG TABCR PO SCH (16:07)
--- NOTE | 2022-02-12 16:19 | Hospitalist Progress Note ---
Date of Service February 12, 2022 Assessment & Plan (1) Exertional angina: Plan: Non-obstructive CAD on heart catheterization today. Trial of Imdur started. (2) Cardiomyopathy: Plan: some cardiac disease present on catheterization today. Further workup for etiology per cardiology. SPEP, UPEP, free light chains pending. Increased furosemide from 20mg daily to 40mg daily. (3) Hypoxia: Plan: persistent, will try to wean as tolerated to room air. (4) Elevated troponin: Plan: workup as above. (5) DM (diabetes mellitus): Plan: well controlled hold outpt meds of metformin, glipizide an prandin placed on lantus/novolog per protocol monitor bsgs which are at goal (6) HTN (hypertension): Plan: chronic, controlled. Cont current medications. (7) HLD (hyperlipidemia): Plan: chronic, stable. Cont atorvastatin per home regimen. (8) CKD (chronic kidney disease), stage III: Plan: chronic, stable. (9) Anemia, macrocytic: Plan: worsening macrocytic anemia. B12/folate level good SPEP/UPEP ordered Hemoglobin and hematocrit 10.6 and 32.4 Last hemoglobin on 07/27/2021 was 13.7 Last colonoscopy 03/2020 revealed adenomatous polyps, repeat 3 years Cont to monitor and would send to hematology for continued workup after discharge if current workup is unrevealing. (10) DVT prophylaxis: Plan: Lovenox Dispo: PCU FULL CODE PCP: Sam Quiroz PA-C I spoke with his at bedside and sent phone message updating his daughter, Jena, both before and after the heart catheterization. Likely to home in am. Lilliana Zamora DO [facility] Hospitalist Admission and Anticipated Discharge Date Admission Date: February 11, 2022 Subjective 71-year-old diabetic man who presented with persistent and worsened exertional angina Denies any chest pain overnight Troponin is elevated serially but not rising He is n.p.o. after midnight in preparation for heart cath this morning. Denies any shortness of breath. chronic diarrhea reported for >3 months. Review of Systems Review of Systems: All systems reviewed negative except as indicated above. Physical Exam Physical Exam: CONSTITUTIONAL: obese, vitals as above, generally well- appearing, NAD EYES: normal conjunctivae, no scleral icterus ENT: external ear and nose normal, MMM NECK: trachea midline RESPIRATORY: clear to auscultation bilaterally, no crackles, rales or wheezes, normal respiratory effort CARDIOVASCULAR: regular rate and rhythm, S1 and 2 heard without murmurs, gallops or rubs, no JVD, no peripheral edema CHEST: inspection of chest was normal GASTROINTESTINAL: soft, nontender, no guarding MUSCULOSKELETAL: strength 5/5 throughout, head is normocephalic and atraumatic SKIN: warm and dry NEUROLOGIC: CN 2-12 grossly intact, no sensory deficit, normal cognition, nor mal speech, no tremor PSYCHIATRIC: alert cooperative and oriented to person, place and time. Results & Data Results & Data ([facility]) Vital Signs (Past 12 Hours) Vital Signs Temp Pulse Pulse Resp BP Pulse Ox O2 Del Method 02/12/22 16:00 82 16 137/77 94 Nasal Cannula 02/12/22 15:30 36.5 C 82 16 141/76 H 94 Nasal Cannula 02/12/22 15:00 36.6 C 84 18 135/75 93 Nasal Cannula 02/12/22 14:45 36.4 C L 87 16 143/77 H 95 Room Air 02/12/22 14:30 36.5 C 77 18 126/75 94 Room Air 02/12/22 14:15 36.6 C 79 16 130/79 96 Nasal Cannula 02/12/22 14:00 36.6 C 82 16 137/72 94 Nasal Cannula 02/12/22 13:46 68 16 132/7 L 98 Room Air 02/12/22 13:29 70 16 140/80 98 Room Air 02/12/22 11:00 36.8 C 77 16 149/78 H 96 02/12/22 11:38 84 18 157/83 H 98 Room Air 02/12/22 08:34 103 H 139/79 02/12/22 06:45 78 02/12/22 06:38 36.7 C 79 18 124/72 90 Room Air O2 Flow Rate 02/12/22 16:00 2 02/12/22 15:30 2 02/12/22 15:00 2 02/12/22 14:45 02/12/22 14:30 02/12/22 14:15 2 02/12/22 14:00 2 02/12/22 13:46 02/12/22 13:29 02/12/22 11:00 02/12/22 11:38 02/12/22 08:34 02/12/22 06:45 02/12/22 06:38 Laboratory Results Short CBC 02/12/22 Range/Units 08:19 WBC 3.34 L (4.8-10.8) K/ul Hgb 10.8 L (14.0-18.0) g/dl Hct 32.7 L (40.1-51.0) % Plt Count 244 (130-400) K/uL BMP 02/12/22 08:19 Sodium 140 Potassium 4.6 Chloride 107 Carbon Dioxide 26 BUN 21 Creatinine 1.35 Glucose 81 Calcium 8.7 Medications Administered Current Inpatient Medications Acetaminophen (Acetaminophen 325 Mg Tab) 650 mg PO Q4H PRN PRN Reason: Pain or Fever Stop: 03/13/22 16:49 Al Hydrox/Mg Hydrox/Simethicone (Aluminum/Magnesium Susp 30 Ml Udc) 15 ml PO Q4H PRN PRN Reason: Dyspepsia Stop: 03/13/22 16:49 Albuterol (Albuterol Hfa 8 Gm Inhaler) 1 puffs INH QID PRN PRN Reason: sob Stop: 03/13/22 16:49 Aspirin (Aspirin 81 Mg Ectab) 81 mg PO DAILY JAQUI Stop: 03/15/22 08:59 Atorvastatin Calcium (Atorvastatin 40 Mg Tab) 40 mg PO DAILY JAQUI Stop: 03/14/22 08:59 Last Admin: 02/12/22 08:31 Dose: 40 mg Cyanocobalamin (Cyanocobalamin (B-12) 500 Mcg Tablet) 1,000 mcg PO DAILY JAQUI Stop: 03/14/22 08:59 Last Admin: 02/12/22 08:32 Dose: 1,000 mcg Dextrose (Dextrose 50% 50 Ml Syringe) 25 - 50 ml IV UD PRN; Protocol PRN Reason: Hypoglycemia Protocol Stop: 03/13/22 16:49 Enoxaparin Sodium (Enoxaparin Inj 40 Mg/0.4 Ml Syr) 40 mg SQ HS JAQUI Stop: 03/13/22 20:59 Last Admin: 02/11/22 20:11 Dose: 40 mg Furosemide (Furosemide 40 Mg Tab) 40 mg PO QAM JAQUI Stop: 03/15/22 08:59 Glucagon (Glucagon For Inj 1 Mg Vial) 1 mg SQ UD PRN; Protocol PRN Reason: Hypoglycemia Protocol Stop: 03/13/22 16:49 Glucose (Glucose 40% Gel 15 Gm Tube) 15 - 30 gm PO UD PRN; Protocol PRN Reason: Hypoglycemia Protocol Stop: 03/13/22 16:49 Glucose (Glucose 10 Tab/Tube) 4 - 8 tab PO UD PRN; Protocol PRN Reason: Hypoglycemia Treatment Stop: 03/13/22 16:49 Sodium Chloride (Nss 1000ml) 1,000 mls @ 80 mls/hr IV .[id number] [facility] Stop: 03/14/22 00:00 Last Infusion: 02/12/22 11:10 Dose: 0 mls/hr Insulin Aspart (Insulin Aspart Per Unit) 0 units SC ACHS [facility] Stop: 03/13/22 16:49 Last Admin: 02/12/22 14:43 Dose: Not Given Insulin Glargine (Lantus Per Unit Charge) 0 units SQ BID [facility]; Protocol Stop: 03/13/22 20:59 Last Admin: 02/12/22 08:05 Dose: Not Given Isosorbide Mononitrate (Isosorbide Russell Extended Rel 30 Mg Tabcr) 30 mg PO QAM [facility] Stop: 03/14/22 14:14 Last Admin: 02/12/22 16:07 Dose: 30 mg Lisinopril (Lisinopril 10 Mg Tab) 10 mg PO DAILY [facility] Stop: 03/14/22 08:59 Last Admin: 02/12/22 08:29 Dose: 10 mg Loratadine (Loratadine 10 Mg Tab) 10 mg PO DAILY [facility] Stop: 03/14/22 08:59 Last Admin: 02/12/22 08:29 Dose: 10 mg Metoprolol Tartrate (Metoprolol Tartrate 25 Mg Tab) 25 mg PO BID [facility] Stop: 03/13/22 16:59 Last Admin: 02/12/22 08:33 Dose: 25 mg Miscellaneous (Carbohydrates For Hypoglycemia ) 15 - 30 gm PO UD PRN PRN Reason: Hypoglycemia Protocol Stop: 03/13/22 16:49 Pantoprazole Sodium (Pantoprazole 40 Mg Tab) 40 mg PO DAILY [facility]; Protocol Stop: 03/14/22 08:59 Last Admin: 02/12/22 08:33 Dose: 40 mg Polyethylene Glycol (Polyethylene (Miralax) 17 Gm Pack) 17 gm PO DAILY PRN PRN Reason: Constipation Stop: 03/13/22 16:49 Pyridoxine HCl (Pyridoxine Hcl 50 Mg Tab) 100 mg PO DAILY [facility] Stop: 03/14/22 08:59 Last Admin: 02/12/22 08:33 Dose: 100 mg Vitamin D (Cholecalciferol 1,000 Units 25 Mcg Tab) 2,000 units PO QAM [facility] Stop: 03/14/22 08:59 Last Admin: 02/12/22 08:32 Dose: 2,000 units
[2022-02-12] MEDS: ENOXAPARIN INJ 40 MG/0.4 ML SYR SQ SCH (20:51)
[2022-02-12] MEDS ORDERED: ASPIRIN 81 MG ECTAB PO SCH (21:00)
[2022-02-12] MEDS ORDERED: METOPROLOL TARTRATE 1 MG/ML VIAL IV STA (23:08)
[2022-02-13] MEDS: INSULIN ASPART PER UNIT SC SCH ×2 (07:22→11:28)
[2022-02-13 07:27] LABS: Basophils # (auto) 0.03 K/uL (0-0.2); Basophils % (auto) 0.7 %; Eosinophils # (auto) 0.12 K/uL (0-0.50); Eosinophils % (auto) 2.8 %; Hematocrit (blood only) 31.7 % (40.1-51.0); Hemoglobin 10.6 g/dl (14.0-18.0); Immature Granulocytes # (auto) 0.01 K/uL (0.00-0.02); Immature Granulocytes % (auto) 0.2 %; Lymphocytes # (auto) 1.25 K/uL (1.2-3.4); Lymphocytes % (auto) 28.9 %; Mean Corpuscular Hgb Conc 33.4 g/dL (32.0-36.0); Mean Corpuscular Volume 104.6 fL (80.0-100.0); Monocytes # (auto) 0.68 K/uL (0.24-0.82); Monocytes % (auto) 15.7 %; Neutrophils # (auto) 2.23 K/uL (1.4-6.5); Neutrophils % (auto) 51.7 %; Platelet Count 280 K/uL (130-400); Red Blood Count 3.03 M/uL (4.63-6.08); White Blood Count 4.32 K/ul (4.8-10.8)
[2022-02-13 08:13] LABS: BUN Creatinine Ratio 17.4 (10-20); Calcium 8.5 mg/dl (8.5-10.1); Creatinine Clr Calc Pharmacy 61.9 ml/min; Est GFR (African American) 53.6 ml/min; Est GFR (Non-African American) 46.2 ml/min; Magnesium 1.9 mg/dl (1.7-2.4); Potassium 4.4 mmol/L (3.5-5.1)
--- NOTE | 2022-02-13 08:58 | XRay Report ---
XR chest 1V portable HISTORY: 71 years-old Male hypoxia acute hypoxia COMPARISON: Chest radiograph 02/11/2022 TECHNIQUE: AP view of the chest FINDINGS: Cardiac silhouette is enlarged. There is no pneumothorax or large pleural effusion. Pulmonary vascula r congestion. Ill-defined left basilar and left perihilar predominant opacities. Degenerative changes of the shoulders and spine. IMPRESSION: 1. Cardiomegaly with pulmonary vascular congestion. 2. Mild left basilar opacities may represent atelectasis versus pneumonitis. ACT 112: Negative or not required by law. The above report was generated using voice recognition software. It may contain grammatical, syntax o r spelling errors. Electronically signed by: Michel Juan M.D. 02/13/2022 8:57 AM
[2022-02-13] MEDS ORDERED: FUROSEMIDE 40 MG TAB PO SCH (09:00)
[2022-02-13] MEDS ORDERED: ASPIRIN 81 MG ECTAB PO SCH (09:00)
[2022-02-13] MEDS: LANTUS PER UNIT CHARGE SQ SCH (09:08)
[2022-02-13] MEDS: METOPROLOL TARTRATE 25 MG TAB PO SCH (09:11)
[2022-02-13] MEDS: lisinopril 10 MG TAB PO SCH (09:11)
[2022-02-13] MEDS: PYRIDOXINE HCL 50 MG TAB PO SCH (09:12)
[2022-02-13] MEDS: PANTOprazole 40 MG TAB PO SCH (09:12)
[2022-02-13] MEDS: CHOLECALCIFEROL 1,000 UNITS 25 MCG TAB PO SCH (09:12)
[2022-02-13] MEDS: CYANOCOBALAMIN (B-12) 500 MCG TABLET PO SCH (09:12)
[2022-02-13] MEDS: ATORVASTATIN 40 MG TAB PO SCH (09:13)
[2022-02-13 09:32] LABS: Estimated Average Glucose 137 mg/dl; Hemoglobin A1C 6.4 % (4.5-5.6)
[2022-02-13] MEDS: ISOSORBIDE MONO EXTENDED REL 30 MG TABCR PO SCH (10:34)
--- NOTE | 2022-02-13 11:35 | Cardiology Progress Note ---
Date of Service February 13, 2022 Assessment & Plan (1) Exertional angina: (2) Elevated troponin: (3) RAMOS (dyspnea on exertion): (4) Cardiomyopathy: (5) Frequent PVCs: (6) CKD (chronic kidney disease) stage 3, GFR 30-59 ml/min: (7) Hypoxia: (8) Anemia, macrocytic: Plan Results of cardiac catheterization discussed with family and patient. PCI not recommended by interventional cardiology at this time. Medical management recommended. At Imdur 30 mg daily. Titrate Lasix to 40 mg daily beginning in a.m. Continue metoprolol tartrate with transition to succinate formulation at time of discharge. Patient instructed to avoid use of [id number] weight loss pills and other stimulants. Further evaluation of cardiomyopathy with SPEP, UPEP, free light chains, and serum ferritin Patient stable for discharge on medication adjustments as made. Metoprolol tartrate switched to metoprolol succinate 25 mg twice per day. Will need cardiology follow-up in 1 to 2 weeks CHF instructions Admission and Anticipated Discharge Date Admission Date: February 13, 2022 Subjective Patient seen and examined, chart, medications, telemetry reviewed. No complaints this morning ambulatory in room. Telemetry as in past demonstrated bigeminy at night. No chest pains or shortness of breath. No tachypalpitations syncope or near syncope. Results of cardiac catheterization reviewed Review of Systems Review of Systems: All systems reviewed & are unremarkable except as noted in Subjective Physical Exam Constitutional: well nourished and + obese; no acute distress Respiratory: normal respiratory effort; no respiratory distress and no labored breathing Auscultation: no crackles, no rales, no rhonchi and no wheezes Cardiovascular: Rate/Rhythm: regular rate and regular rhythm Heart Sounds: normal S1 and normal S2; no murmur Vessels: femoral pulses present and radial pulses present; no JVD Extremities: + edema (1+ B/L lower extremity edema stasis changes) Gastrointestinal (Abdomen): Inspection/Auscultation: abdomen not distended Percussion/Palpation: abdomen soft; abdomen nontender, no guarding and abdomen not rigid Neurologic: CN's II-XI intact bilaterally and moves all extremities; no focal motor deficits Psychiatric: A+Ox3, euthymic affect Results & Data ([facility]) Vital Signs (Past 12 Hours) Vital Signs Temp Pulse Resp BP Pulse Ox O2 Del Method 09/24/22 06:27 37.1 C 83 18 130/73 90 Room Air 02/13/22 02:53 36.9 C 79 18 110/65 90 Room Air Laboratory Results Laboratory Results - last 24 hr 02/12/22 02/12/22 02/12/22 08:19 13:19 14:41 WBC RBC Hgb Hct MCV MCH MCHC RDW Std Deviation RDW Coeff of Lasha Plt Count MPV Immature Gran % (Auto) Neut % (Auto) Lymph % (Auto) Nicollet % (Auto) Eos % (Auto) Baso % (Auto) Neut # (Auto) Lymph # (Auto) Nicollet # (Auto) Eos # (Auto) Baso # (Auto) Immature Gran # (Auto) Activ Coag Time Kaolin 208 H Sodium Potassium Chloride Carbon Dioxide Anion Gap BUN Creatinine Est Cr Clr Drug Dosing Est GFR ( Amer) Est GFR (Non-Af Amer) BUN/Creatinine Ratio Glucose POC Glucose 81 Estimat Average Glucose Hemoglobin A1c Calcium Magnesium Triglycerides Cholesterol LDL Cholesterol, Calc VLDL Cholesterol, Calc HDL Cholesterol Cholesterol/HDL Ratio Urine Immunofixation Hepatitis C Ab (EIA) NON-REACTIVE Hep C Ab Signal/Cutoff 0.12 02/12/22 02/12/22 02/12/22 16:56 20:07 21:00 WBC RBC Hgb Hct MCV MCH MCHC RDW Std Deviation RDW Coeff of Lasha Plt Count MPV Immature Gran % (Auto) Neut % (Auto) Lymph % (Auto) Nicollet % (Auto) Eos % (Auto) Baso % (Auto) Neut # (Auto) Lymph # (Auto) Nicollet # (Auto) Eos # (Auto) Baso # (Auto) Immature Gran # (Auto) Activ Coag Time Kaolin Sodium Potassium Chloride Carbon Dioxide Anion Gap BUN Creatinine Est Cr Clr Drug Dosing Est GFR ( Amer) Est GFR (Non-Af Amer) BUN/Creatinine Ratio Glucose POC Glucose 142 H 103 H Estimat Average Glucose Hemoglobin A1c Calcium Magnesium Triglycerides Cholesterol LDL Cholesterol, Calc VLDL Cholesterol, Calc HDL Cholesterol Cholesterol/HDL Ratio Urine Immunofixation Pending Hepatitis C Ab (EIA) Hep C Ab Signal/Cutoff 02/13/22 02/13/22 02/13/22 07:16 07:17 07:17 WBC 4.32 L RBC 3.03 L Hgb 10.6 L Hct 31.7 L MCV 104.6 H MCH 35.0 H MCHC 33.4 RDW Std Deviation 65.0 H RDW Coeff of Lasha 17.0 H Plt Count 280 MPV 10.0 Immature Gran % (Auto) 0.2 Neut % (Auto) 51.7 Lymph % (Auto) 28.9 Nicollet % (Auto) 15.7 Eos % (Auto) 2.8 Baso % (Auto) 0.7 Neut # (Auto) 2.23 Lymph # (Auto) 1.25 Nicollet # (Auto) 0.68 Eos # (Auto) 0.12 Baso # (Auto) 0.03 Immature Gran # (Auto) 0.01 Activ Coag Time Kaolin Sodium 137 Potassium 4.4 Chloride 104 Carbon Dioxide 29 Anion Gap 4 BUN 26 H Creatinine 1.49 H Est Cr Clr Drug Dosing 61.9 Est GFR ( Amer) 53.6 Est GFR (Non-Af Amer) 46.2 BUN/Creatinine Ratio 17.4 Glucose 125 H POC Glucose 139 H Estimat Average Glucose Hemoglobin A1c Calcium 8.5 Magnesium 1.9 Triglycerides 163 H Cholesterol 96 LDL Cholesterol, Calc 39 VLDL Cholesterol, Calc 33 H HDL Cholesterol 24 Cholesterol/HDL Ratio 4.0 Urine Immunofixation Hepatitis C Ab (EIA) Hep C Ab Signal/Cutoff 02/13/22 02/13/22 07:17 11:17 WBC RBC Hgb Hct MCV MCH MCHC RDW Std Deviation RDW Coeff of Lasha Plt Count MPV Immature Gran % (Auto) Neut % (Auto) Lymph % (Auto) Nicollet % (Auto) Eos % (Auto) Baso % (Auto) Neut # (Auto) Lymph # (Auto) Nicollet # (Auto) Eos # (Auto) Baso # (Auto) Immature Gran # (Auto) Activ Coag Time Kaolin Sodium Potassium Chloride Carbon Dioxide Anion Gap BUN Creatinine Est Cr Clr Drug Dosing Est GFR ( Amer) Est GFR (Non-Af Amer) BUN/Creatinine Ratio Glucose POC Glucose 186 H Estimat Average Glucose 137 Hemoglobin A1c 6.4 H Calcium Magnesium Triglycerides Cholesterol LDL Cholesterol, Calc VLDL Cholesterol, Calc HDL Cholesterol Cholesterol/HDL Ratio Urine Immunofixation Hepatitis C Ab (EIA) Hep C Ab Signal/Cutoff
--- NOTE | 2022-02-13 13:17 | Discharge Summary ---
Discharge Summary Date of Service February 13, 2022 Notes For Next Care Provider -Please ensure patient is tolerating new medications without difficulty -Please ensure he is understanding CHF instructions and how to take daily weight -He was instructed to hold taking metformin until 02/14 because of contrast administration with his heart cath; please make sure he has restarted this appropriately. -Please consider BMP in 1 week with increased dose of Lasix to check potassium levels and creatinine. -Please provide refills for all new medications as appropriate. Medication Changes From Visit Furosemide increased from 20mg daily to 40mg daily Isosorbide mononitrate ER 30mg PO daily Metoprolol succinate 25mg PO daily Cholecalciferol (vitamin D3) 2000 IU PO qAM Admission HPI Per Admitting Provider This is a 71-year-old male who has a significant past medical history of T2DM, HTN, HLD, diabetic peripheral neuropathy, diabetic retinopathy, CKD stage III with baseline creatinine 1.4, vitamin D deficiency, GERD and obesity who presents to ED at the referral of cardiology clinic secondary to progressive dyspnea on exertion and chest pain x 1 year. He states he has generally felt unwell over the past 1 year. He admits to getting shortness of breath with exertion as well as left-sided chest pain. Pain was nonradiating, described as a dull ache, rated a 3 out of 10, made worse with continued walking, improved immediately and 20 seconds with rest, is not effected with movement or deep breathing, has been experiencing off and on for the past year and has never had this evaluated. He notes over the past year this has been progressively becoming worse. [place] a sc[place] because even minimal walking would make his shortness of breath and chest pain appear. Daughter also states when he would walk minimally his face would turn white. He denies any prior cardiac history including [facility] or cardiac testing. He denies any increase in lower extremity swelling as he does have some chronic lower extremity edema. He has actually lost approximately 35 pounds in the past year with a keto diet but this has not made any difference. He denies any recent illness, fever, chills, sweats, lightheadedness, dizziness, presyncope, palpitations, cough, hemoptysis, URI symptoms, nausea, vomiting, abdominal pain, change in bowel or urinary habits. He does have chronic sinus problems and postnasal drip which she follows ENT for and uses inhalers as needed as well as nasal solutions. He is prescribed an as needed albuterol inhaler as well as nitroglycerin. He did not use any of these when chest pain or shortness of breath appeared. He was seen in clinic today by Dr. Galvin. He was referred to ER for further cardiac testing and possible cardiac catheterization. He does have strong family history of CAD. His father had four-vessel bypass in his 60s. Also his aunt had 3v bypass in 50s. In ED he remained hemodynamically stable. EKG revealed sinus tachycardia with bigeminy, PVC, prolonged QTC but no acute ST or T wave changes. Initial troponin elevated at 25. Chest x-ray revealed cardiomegaly but no acute cardiopulmonary disease. He did receive full dose ASA in ED. Admission Exam Per Admitting Provider Physical Exam: Constitutional: WD/WN, obese M, vitals as above, NAD, sitting up in bed, pleasant, conversing easily Head: Normocephalic, Atraumatic Eyes: PERRL, conjunctivae normal, anicteric sclerae ENMT: external ear and nose normal, oropharynx normal Neck: trachea midline, no thyromegaly normal visual inspection Respiratory: normal respiratory effort, lungs clear to auscultation, no wheeze, rales, rhonchi. Normal insp/exp effort, no accessory muscle use Cardiovascular: RRR +ectopy, no murmur, trace b/l lower ext edema, +venous stasis changes, no active cellulitis, Vessels: no JVD or carotid bruit Chest: normal inspection of chest Abdomen: normal bowel sounds, soft, nontender, no hepatosplenomegaly Musculoskeletal: no cyanosis or clubbing, extremities motor strength 5/5 Skin: no rashes, warm and dry normal turgor Neurologic: PERRL, EOMI, accommodation nl, no face palsy, no dysarthria CN's II-XI intact bilaterally and moves all extremities Psychiatric: A+Ox3, euthymic affect Lymphatic: no cervical or axillary lymphadenopathy : deferred Principal Dx & Hospital Course #1 = Principal Diagnosis (1) Exertional angina: (2) Cardiomyopathy: (3) Hypoxia: (4) Elevated troponin: (5) DM (diabetes mellitus): (6) CKD (chronic kidney disease), stage III: (7) Anemia, macrocytic: Plan 71-year-old man with diabetes presented with progressive dyspnea on exertion and chest pain x1 year. Chest pain was left-sided described as a dull ache and was nonradiating. He was admitted to the medicine service and cardiology was consulted. Serial highly sensitive troponin were 25.6, 27.7 and 26.6. Cardiac catheterization was recommended and performed on 02/12. The results were equivocal with 50% stenosis in the mid LAD. Medical therapy was recommended and he was placed on Imdur, Toprol-XL 25 daily and his Lasix was increased. Echocardiogram revealed an ejection fraction of 40 to 45% with moderate concentric left ventricular hypertrophy. There was a trivial loculated posterior pericardial effusion with no echocardiographic indication of cardiac tamponade. Frequent PVCs were noted on telemetry otherwise there were no arrhythmias. Patient was instructed to avoid [id number] use of weight loss pills and other stimulants which he had been previously using. He was notably hypoxic for some of the state but a two-step respiratory test was performed and he did not need oxygen with ambulation. At time of discharge she was mentating and ambulating well and was tolerating p.o. He was hemodynamically stable and afebrile and oxygenating well on room air. He was discharged in stable condition with close primary care follow-up recommended. Close cardiology follow-up was recommended in 1 to 2 weeks. The side metformin was recommended to be held for another day after discharge as a result of contrast administration on 02/12. This was included in his discharge instructions. Additionally he was seen to have a worsening macrocytic anemia with an H&H of 10.6 and 31.7 respectively. MCV was 105. SPEP, UPEP and free light chains were pending at time of discharge. Notably B12 and folate levels were within normal range. He was started on vitamin D supplementation based on outpatient labs reflecting deficiency. Discharge Exam CONSTITUTIONAL: obese, vitals as above, generally well-appearing, NAD EYES: normal conjunctivae, no scleral icterus ENT: external ear and nose normal, MMM NECK: trachea midline RESPIRATORY: clear to auscultation bilaterally, no crackles, rales or wheezes, normal respiratory effort CARDIOVASCULAR: regular rate and rhythm, S1 and 2 heard without murmurs, gallops or rubs, no JVD, no peripheral edema CHEST: inspection of chest was normal GASTROINTESTINAL: soft, nontender, no guarding MUSCULOSKELETAL: strength 5/5 throughout, head is normocephalic and atraumatic SKIN: warm and dry NEUROLOGIC: CN 2-12 grossly intact, no sensory deficit, normal cognition, normal speech, no tremor PSYCHIATRIC: alert cooperative and oriented to person, place and time. Updated Medication List Medication Instructions Recorded Confirmed Type aspirin 81 mg tablet,delayed 81 mg PO PM #0 tabs 07/11/13 02/11/22 History release (Kary Low Dose Aspirin) glipizide 10 mg tablet, extended 20 mg PO QAM #0 tabs 07/11/13 02/11/22 History release 24 hr metformin 850 mg tablet 850 mg PO BID 11/24/18 02/11/22 History atorvastatin 40 mg tablet 40 mg PO DAILY 07/20/21 02/11/22 History lisinopril 10 mg tablet 10 mg PO DAILY 07/20/21 02/11/22 History nitroglycerin 0.4 mg sublingual 0.4 mg sublingual UD PRN .chest 07/20/21 02/11/22 History tablet (Nitrostat) pain repaglinide 2 mg tablet 4 mg PO TID 07/20/21 02/11/22 History albuterol sulfate 90 mcg/actuation 1 inh inhalation QID PRN sob 02/11/22 02/11/22 History aerosol inhaler budesonide-formoterol HFA 160 1 inh inhalation BID PRN sob 02/11/22 02/11/22 History mcg-4.5 mcg/actuation aerosol inhaler (Symbicort) cyanocobalamin (vitamin B-12) 1,000 mcg PO DAILY 02/11/22 02/11/22 History 1,000 mcg tablet loratadine 10 mg tablet 10 mg PO DAILY 02/11/22 02/11/22 History omeprazole 20 mg capsule,delayed 20 mg PO DAILY 02/11/22 02/11/22 History release pyridoxine (vitamin B6) 100 mg 100 mg PO DAILY 02/11/22 02/11/22 History tablet cholecalciferol (vitamin D3) 25 2,000 unit PO QAM #30 caps 02/13/22 Rx mcg (1,000 unit) capsule furosemide 40 mg tablet 40 mg PO QAM #60 tabs 02/13/22 Rx isosorbide mononitrate 30 mg 30 mg PO QAM #30 tabs 02/13/22 Rx tablet,extended release 24 hr metoprolol succinate 25 mg 25 mg PO BID #60 tabs 02/13/22 Rx tablet,extended release 24 hr Hospital Stay Data Consultations 02/11/22 14:34 ED Decision to Admit Stat 02/11/22 15:22 Consult Cardiology Routine Procedures Performed Operation Date: 02/12/22 11:00 Actual Procedures s Cineradiography w/Routine Exam - Avila Ervin, DO p Cath, Left with Cors and Vent - Avila Ervin, DO s Fraction Flow Hurst SGL Ves - Matias Alvarez MD, PhD s IVUS Coronary Single Vessel - Matias Alvarez MD, PhD Diagnostic Imagining Performed 02/12/22 06:29 CL Cath Imgs for PACS use only Stat Pending Results Patient Have Any Pending Studies at Discharge: Yes Discharge Instructions Given to Patient (Per Discharging Provider) Please take all medications as instructed on discharge as below. Please note your Lasix has been increased from 20 mg daily to 40 mg daily. You should take your weight on a standing scale every day and contact your doctor if you are gaining weight. You have been given a new medicine called Imdur which should help with exertional chest pain. You were not recommended to have any stent therapy but did have some blockages in your heart arteries indicative of coronary artery disease. It will be important to continue certain medications including baby aspirin, atorvastatin, lisinopril in order to medically manage this. Continuing to monitor cholesterol and adhering to good low-salt diet options and daily exercise is strongly recommended. It is not recommended to continue [id number] weight loss pills or other stimulants at this time. You had a heart ultrasound that revealed a decreased pump function. This is called cardiomyopathy and can lead to fluid retention. Lasix will help with symptoms of this condition, and you have been put on medications including metoprolol to improve your overall pump function. A repeat follow-up in 1 to 2 weeks at the [facility] cardiology clinic is strongly recommended. As part of the evaluation of your cardiomyopathy, there are studies still pending at the time of discharge. This includes SPEP, UPEP, free light chains. Please follow-up with your primary care doctor regarding the results of the studies. At the time of discharge you did have a small amount of fluid on your lungs seen on chest x-ray. You also were experiencing a dry, nonproductive cough. The increased amount of Lasix given daily should help with this as this helps to pull water off your system. Close monitoring of your weight and adherence to this medication should help the symptoms. Labs in the hospital demonstrated a new onset anemia (low blood count) which will need to be further investigated by her primary care doctor. A formal two-step evaluation was done by a respiratory therapist showing you do not qualify for oxygen with ambulation. Please hold off on restarting your metformin until 02/14 because you received contrast dye yesterday. It is recommended that you follow-up with your primary care doctor within 1 week of hospital stay to ensure you are tolerating the new medicines without issue, to obtain refills, and to ensure your follow-up with cardiology is in place. If you have any issues over the weekend please contact me at the hospital glazing machine operator number below, where I can be paged. It was a pleasure taking care of you! Please call if you have any questions or problems. You can reach a [facility] hospitalist on duty at [facility] 24 hours a day by calling [phone]. Take care of yourself. Lilliana Zamora, DO [facility] Hospitalist Total Time Total Time Spent Total Time Spent (In Minutes): 60
[2022-02-13] MEDS ORDERED: METOPROLOL SUCC 25MG EXT REL TAB PO SCH (21:00)
[2022-02-15 18:49] LABS: Albumin 3.8 g/dL (3.8-4.8); Alpha 1 Globulin 0.3 g/dL (0.2-0.3); Alpha 2 Globulin 0.7 g/dL (0.5-0.9); Beta-1-Globulin 0.3 g/dL (0.4-0.6); Beta-2-Globulin 0.3 g/dL (0.2-0.5); Free Kappa 31.8 mg/L (3.3-19.4); Free Kappa/Lambda Ratio 0.83 (0.26-1.65); Free Lambda 38.4 mg/L (5.7-26.3); Gamma Globulin 0.9 g/dL (0.8-1.7); Monoclonal Protein Band 1 0.3 g/dL (NONE DETECTED); Monoclonal Protein Band 2 DNR g/dL (NONE DETECTED); Monoclonal Protein Band 3 DNR g/dL (NONE DETECTED); Total Protein 6.3 g/dL (6.1-8.1)
== END 2022-02-13 14:58 | disposition home or self-care (01) | DRG 287 ==
LOC: 2S 12:01 → ED 12:01 → SUATTDRO 14:55 → 2S 16:42

== ENCOUNTER 2024-09-15 20:37 | Inpatient (IN) ==
--- OUTSIDE RECORDS SUMMARY | 2024-09-15 20:47 | External Medical Summary | Summary of Care ---
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 Name Role Phone Sam Quiroz PA-C Primary Care Provider [phone] Reason for Visit * Reason Comments Medication Management Encounter Details Date Type Department Care Team ([facility] st Contact Info) Description 09/11/2024 9:00 AM EDT Pharmacy Pharmacy Hematology Oncology [facility] [address], [place] [id number] [facility] Hem/Onc [address] [place] [address] Iron overload, transfusional* Allergies Active Allergy Reactions Criticality Noted Date Comments Ether Low 05/19/2022 Other reaction(s): VOMITING documented as of this encounter (statuses as of 09/11/2024) Medications albuterol (PROVENTIL HFA) 108 (90 BASE) MCG/ACT inhaler Inhale 2 Puffs by mouth every 6 hours as needed. Active Cyanocobalamin (VITAMIN B-12) 1000 MCG Tablet Take 1 Tablet by mouth in the morning. Active pyridOXINE (VITAMIN B-6) 100 MG Tablet Take 1 Tablet by mouth in the morning. Active nitroglycerin (NITROSTAT) 0.4 MG SUBLIndications:C hest pain Place 1 Tab under the tongue as needed for Pain, Chest. May repeat 3 times. If chest pain continues, call 911. 25 Tab 11 020 Active Omeprazole 20 MG Oral Capsule Delayed Release (PriLOSEC) Take 1 Capsule by mouth in the morning. Active Fluticasone Propionate 50 MCG/ACT Nasal Suspension Administer into each nostril 2 Sprays in the morning AND 2 Sprays before bedtime. 16 g 12 022 Active Budesonide 0.5 MG/2ML Inhalation Suspension (Pulmicort)Indica tions:Chronic rhinitis Place 1 ampule in 8 oz of saline and rinse the nose once a day as directed. 60 mL 12 022 Active Dexamethasone Sodium Phosphate 0.1 % Ophthalmic Solution (Decadron) Place 4 drops in 8 oz of saline and rinse the nose once a day as directed. 20 mL 6 022 Active Vitamin D (Cholecalciferol) 25 MCG (1000 UT) Oral Capsule Take by mouth 2 Capsules in the morning. 30 Capsule 022 Active Centrum Adults Oral Tablet Chewable Take 1 Tablet by mouth in the morning. Active Ondansetron HCl 8 MG Oral TabletIndications :MDS (myelodysplastic syndrome) (HCC) Take 1 Tablet by mouth in the morning and 1 Tablet at noon and 1 Tablet before bedtime. 30 Tablet 2 023 Active Additional Information Patient taking differently:8 mg [id number] PRN, Nausea, Reported on 05/04/2024 Budesonide-Formot finesse Fumarate 160-4.5 MCG/ACT Inhalation Aerosol (Symbicort) Inhale 2 Puffs by mouth in the morning and 2 Puffs before bedtime. 10.2 g 5 023 Active Lidocaine-Priloca ine 2.5-2.5 % External Cream (Emla)Indications :Encounter for antineoplastic chemotherapy Apply topically to affected area as needed for Pain, Breakthrough. APPLY TO SKIN OVER MEDIPORT & COVER 1HR PRIOR TO ACCESSING. 30 g 023 Active Metoprolol Succinate ER 25 MG Oral Tablet Extended Release 24 Hour (toPROL XL)Indications:HT N, goal below 140/80 Take 1 Tablet by mouth in the morning. 90 Tablet 3 024 Active Isosorbide Mononitrate ER 30 MG Oral Tablet Extended Release 24 Hour (Imdur) Take 1 Tablet by mouth in the morning. 90 Tablet 3 024 Active Repaglinide 2 MG Oral Tablet (Prandin)Indicati ons:Type 2 diabetes mellitus with hemoglobin A1c goal of less than 7.0% (HCC) Take 2 tablets before each meal and 1 tablet with snack if needed. SKIP IF NOT EATING 720 Tablet 3 024 Active Furosemide 40 MG Oral Tablet (Lasix)Indication s:Chronic heart failure with preserved ejection fraction (HCC) Take 1 Tablet by mouth 2 times a day. 180 Tablet 3 024 Active Loratadine 10 MG Oral Tablet (Claritin) Take 1 Tablet by mouth in the morning. 30 Tablet 5 024 Active FreeStyle Danica 3 Plus Sensor Use to check blood sugars 6 times daily DX E11.65 - transition from old DME Supplier, and transition to Danica 3 + sensors 6 Each 3 024 Active Montelukast Sodium 10 MG Oral Tablet (Singulair) Take 1 Tablet by mouth in the morning. 90 Tablet 3 024 Active Atorvastatin Calcium 40 MG Oral Tablet (Lipitor) Take 1 Tablet by mouth in the morning. 90 Tablet 3 024 Active Aspirin 81 MG Oral Tablet Delayed Release Take 1 Tablet by mouth in the morning. 024 Active Gabapentin 100 MG Oral Capsule (Neurontin) Take 1 Capsule by mouth in the morning and 1 Capsule at noon and 1 Capsule before bedtime. 90 Capsule 5 024 Active Deferasirox 180 MG Oral Tablet (Jadenu)Indicatio ns:Iron overload, transfusional Take 180 mg (1 tablet) by mouth in the morning. 30 Tablet 5 5 8:15 AM EDT 025 Active Deferasirox 360 MG Oral Tablet (Jadenu)Indicatio ns:Iron overload, transfusional Take 1,080 mg (3 tablets) by mouth in the morning. 90 Tablet 5 5 8:15 AM EDT 025 Active OneSebastián Casillas 33GIndications:Ty pe 2 diabetes mellitus with hemoglobin A1c goal of less than or equal to 9.0% (HCC),Type 2 diabetes mellitus with stage 3b chronic kidney disease, without long-term current use of insulin (HCC),Other vitamin B12 deficiency anemias Use to test blood sugar once daily and as needed for hypoglycemic symptoms E11.9 100 Each 06/06/2 025 Active Contractor Copilot Delica Lancing DevIndications:Ty pe 2 diabetes mellitus with hemoglobin A1c goal of less than or equal to 9.0% ([facility]),Type 2 diabetes mellitus with stage 3b chronic kidney disease, without long-term current use of insulin ([facility]),Other vitamin B12 deficiency anemias Use to test blood sugar once daily and as needed for hypoglycemic symptoms E11.9 1 Each 025 Active Contractor Copilot Verio Flex System w/Device KitIndications:Ty pe 2 diabetes mellitus with hemoglobin A1c goal of less than or equal to 9.0% ([facility]),Type 2 diabetes mellitus with stage 3b chronic kidney disease, without long-term current use of insulin ([facility]),Other vitamin B12 deficiency anemias Use to test blood sugar once daily and as needed for hypoglycemic symptoms E11.9 1 Kit 025 Active SMT [employer] Development In Vitro Strip (Glucose Blood)Indications :Type 2 diabetes mellitus with hemoglobin A1c goal of less than or equal to 9.0% ([facility]),Type 2 diabetes mellitus with stage 3b chronic kidney disease, without long-term current use of insulin ([facility]),Other vitamin B12 deficiency anemias Use to test blood sugar once daily and as needed for hypoglycemic symptoms E11.9 100 Strip 11 025 Active Folic Acid 1 MG Oral TabletIndications :MDS (myelodysplastic syndrome) ([facility]) TAKE 1 TABLET BY MOUTH EVERY MORNING 90 Tablet 3 025 Active Jardiance 25 MG Oral Tablet (Empagliflozin) Take 1 Tablet by mouth in the morning. 90 Tablet 025 Active metFORMIN HCl ER 500 MG Oral Tablet Extended Release 24 Hour (Glucophage XR)Indications:Ty pe 2 diabetes mellitus with hemoglobin A1c goal of less than or equal to 9.0% ([facility]) Take 1 Tablet by mouth in the morning and 1 Tablet in the evening. 180 Tablet 3 025 Active BD Pen Needle Naomi 2nd Gen 32G X 4 MM (Insulin Pen Needle)Indication s:Type 2 diabetes mellitus with hemoglobin A1c goal of less than or equal to 9.0% ([facility]) Use to inject insulin once daily E11.9 100 Each 3 025 Active Insulin Glargine Solostar 100 UNIT/ML Subcutaneous Solution Pen-injectorIndic ations:Type 2 diabetes mellitus with hemoglobin A1c goal of less than or equal to 9.0% (HCC) Inject 15 Units under the skin in the morning. 15 mL 3 025 Active Additional Information Patient taking differently: 10 UnitsSubcutaneous Daily(AM), Reported on 09/05/2024 Insulin Glargine-yfgn 100 UNIT/ML Subcutaneous Solution Pen-injector INJECT 15 UNITS SUBCUTANEOUSLY IN THE MORNING EVERY DAY 025 Active FreeStyle Danica 2 Sensor Use as directed every 14 days. 6 Each 1 025 Active documented as of this encounter (statuses as of 09/11/2024) Active Problems Problem Noted Date Diagnosed Date Encounter for adjustment and management of vascular access device 07/10/2024 Nonischemic cardiomyopathy 07/05/2023 Iron overload, transfusional 06/23/2023 Pancytopenia 02/28/2023 MDS (myelodysplastic syndrome) 06/24/2022 Diabetic polyneuropathy asso ciated with type 2 diabetes mellitus 08/03/2021 Benign hypertension with stage 3b chronic kidney disease 08/03/2021 Overview: Per CKD protocol Type 2 diabetes mellitus wit h stage 3b chronic kidney disease 08/03/2021 Overview: Per CKD protocol Chronic kidney disease, stage 3b 08/03/2021 Overview: Per CKD protocol 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 GERD (gastroesophageal reflux disease) 4 documented as of this encounter (statuses as of 09/11/2024) Resolved Problems Problem Noted Date Diagnosed Date Resolved Date Chronic kidney disease, stage 3a 11/04/2020 08/05/2021 Overview: Per CKD protocol Benign hypertension with sta ge 3a chronic kidney disease 09/30/2020 08/05/2021 Overview: Per CKD protocol Type 2 diabetes mellitus wit h stage 3a chronic kidney disease 09/30/2020 08/05/2021 Overview: Per CKD protocol Benign hypertension with CKD (chronic kidney disease) stage III 07/20/2018 10/02/2020 Overview: Per CKD protocol Diabetes mellitus with stage 3 chronic kidney disease 05/01/2018 10/02/2020 Overview: Per CKD protocol #1 Fracture of metacarpal, closed 03/19/2014 06/26/2015 Potential difficult airway o n pre-intubation assessment 03/01/2014 06/26/2015 L3 vertebral fracture 02/27/20142015 C7 cervical fracture 02/27/2014 016 Fracture of cervical vertebra, C6 02/27/2014 06/26/2015 Closed C5 fracture 02/27/2014 6 Closed T1 spinal fracture 02/27/2014 Ribs, multiple fractures 02/27/201408/2015 Edema 12/04/2012 03/19/2019 Type 1 diabetes mellitus wit h hemoglobin A1c goal of less than 7.0% 06/19/2012 12/04/2012 Overview (09/22/2015): ICD-10 update of inactive term Type 2 diabetes mellitus wit h hemoglobin A1c goal of 7.0%-8.0% 05/11/2010 05/11/2010 Overview (09/18/2015): ICD-10 update of inactive term Type 2 diabetes mellitus wit h hemoglobin A1c goal of 7.0%-8.0% 05/11/2010 04/08/2016 Overview (09/18/2015): ICD-10 update of inactive term DM type 2, not at goal 04/02/201005/11 Obesity, morbid (more than 1 00 lbs over ideal weight or BMI > 40) 11/04/2009 06/26/2015 Overview (08/11/2015): Per Obesity Protocol, #19 ICD-10 update of inactive term Type 2 diabetes mellitus wit h hemoglobin A1c goal of less than 7.0% 03/20/2009 04/02/2010 Overview (09/16/2015): Per Diabetes Taxonomy. ICD-10 update of inactive term Type 2 diabetes mellitus wit h hemoglobin A1c goal of less than 7.0% 11/06/2007 03/20/2009 Overview (09/16/2015): Per Diabetes Taxonomy. ICD-10 update of inactive term HX-SKIN MALIGNANCY NEC bce back 06/30/2007 03/19/2019 ADVANCE DIRECTIVE INFORMATION 05/20/2005 03/26/2024 Overview (05/20/2005): No, Advance Directive brochure given to patient. Malignant neoplasm of scalp and skin of neck 5 03/19/2019 Overview (08/26/2015): ICD-10 update of inactive term OTHER CHRONIC DERMATITIS DUE TO SOLAR RADIATION 12/16/2004 03/19/2019 Mixed dyslipidemia 08/19/2003 9 Overview (05/07/2009): Per Lipid Taxonomy. documented as of this encounter (statuses as of 09/11/2024) Immunizations Name Administration Dates Next Due COVID-19 mRNA, LNP-s, No Pre serve, 2-Dose Series (Veeip) 07/18/2020 COVID-19, MRNA-LNP, PF, 30 M CG/0.3 mL, 12 YRS AND ABOVE, IM (PFIZER-Comirnaty) 03/28/2024 Covid-19, Mrna, Lnp-s, Pf, B ivalent, 30 Mcg, IM, 12 yrs and above (Pfizer) 02/08/2022 Pneumococcal Conjugate Vacc, 13 Valent (Prevnar) 01/01/2016 Pneumococcal Polysaccharide PPV23 (Pneumovax) 11/07/2017,01/15/2008 Seasonal Influenza Vac., MDV , IM, 0.5 mL (Fluzone) 03/05/2014,03/12/2013,03/04/2012,03/04,02/20/2010,02/09/2009,02/21/2008 ,05/02/2006 Seasonal Influenza, High Dos e, Trivalent, PF, IM (Fluzone HD) 01/30/2024 Seasonal Influenza, PF, 6 M & above, IM , (FluLaval or Fluzone) 03/06/2018 Seasonal Influenza, Quadriva lent Hd (Fluzone Hd) 01/25/2023,02/03/2022 Seasonal Influenza, Quadriva lent, No Preserve, IM 03/20/2020,03/04/2017,03/04/2016,03/04 Seasonal Influenza, Trivalen t, Adjuvanted, 65+ YRS, PF, (Fluad) 02/20/2021,01/29/2019 TDAP (age 10 and older)(Boostrix) 02/28/2014 TDAP, Age 7 and older, IM (Adacel) 11/20/2007 Varicella Zoster Vaccine Ar lt (Zostavax) 07/04/2013 Zoster Vaccine Recombinant (Shingrix) 06/26/2020 ,03/06/2020 documented as of this encounter Social History Tobacco Use Types Packs/Day Years Used Date Smoking Tobacco: Never Passive Smoke Exposure: Never Smokeless Tobacco: Never Alcohol Use Standard Drinks/Week Comments No 0 (1 standard drink = 0.6 oz pur e alcohol) PHQ-2 Answer Date Recorded PHQ Adult Total Score 0 01/03/2024 Hunger Vital Sign Answer Date Recorded Within the past 12 months, y ou worried that your food would run out before you got the money to buy more. Never true 01/03/20 24 Within the past 12 months, t he food you bought just didn't last and you didn't have money to get more. Never true 01/03/2024 Childcare Answer Date Recorded Do you feel overwhelmed with taking care of a child, family member or friend? No 01/03/2024 Does your family need help f inding childcare? (Household - for ages 0-17 years) Not on file 01/03/2024 Clothing Answer Date Recorded Have you been unable to get clothing when it was really needed? No 01/03/2024 Is your family able to get c lothes or diapers when needed? (Household - for ages 0-17 years) Not on file 01/03/2024 Personal Safety Answer Date Recorded Do you feel unsafe or have concerns for your saf ety? No 01/03/2024 Do you have concerns for you r family's safety? (Household - for ages 0-17 years) Not on file 01/03/2024 Utilities Answer Date Recorded Do you have trouble paying y our heating, water, or electric bill? No 01/03/2024 Is your family able to pay t he heat, water, or electric bill? (Household - for ages 0-17 years) Not on file 01/03/2024 Does your family have access to good internet? (Household - for ages 0-17 years) Not on file 01/03/2024 Employment Status Answer Date Recorded Are you unemployed or without regular income? No 01/03/2024 Does the household have a re lar source of income? (Household - for ages 0-17 years) Not on file 01/03/2024 Social Connections Answer Date Recorded How often do you feel lonely or isolated from th ose around you? Never 01/03/2024 Financial Resource Strain Answer Date R ecorded Do you have any trouble payi ng for your medications, or do you think you might in the future? No 01/03/2024 Does your family have troubl e paying for medicine? (Household - for ages 0-17 years) Not on file 01/03/2024 Transportation Needs Answer Date Record ed Do you have trouble getting a ride to medical visits or work? (Adult - for ages 18 years and over) Not on file 01/03/2024 Does your family have a hard time getting a ride to doctors visits? (Household - for ages 0-17 years) Not on file 01/03/2024 Has lack of transportation k ept you from medical appointments, meetings, work, or from getting things needed for daily living? Check all that apply. No 01/03/2024 Do you (or your family) have trouble finding or paying for a ride (transportation)? (Household - for ages 0-17 years) Not on file 01/03/2024 Housing Stability Answer Date Recorded Do you currently live in a s helter or have no steady place to sleep at night? No 01/03/2024 Do you think you are at risk of becoming homeless? (Adult - for ages 18 years and over) Not on file 01/03/2024 Does your family worry about paying for your home or becoming homeless? (Household - for ages 0-17 years) Not on file 0 01/03/2024 Are you homeless or worried that you might be in the future? No 01/03/2024 Are you (or your family) greta eless or worried that you might be in the future? (Household - for ages 0-17 years) Not on file Food Insecurity Answer Date Recorded Do you need food for this week? No 01/03/2024 Are you able to get enough f ood for your family? (Household - for ages 0-17 years) Not on file 01/03/2024 Does your family need food t his week? (Household - for ages 0-17 years) Not on file 01/03/2024 Do you always have enough fo od for your family? (Household - for ages 0-17 years) Not on file 01/03/2024 Food Insecurity Answer Date Recorded Within the past 12 months, y ou worried that your food would run out before you got the money to buy more. Never true 01/03/20 24 Within the past 12 months, t he food you bought just didn't last and you didn't have money to get more. Never true 01/03/2024 Do you need food for this week? No 01/03/2024 Sex and Gender Information Value Date Recorded Sex Assigned at Male 03/06/2020 5:57 PM EDT Legal Sex Male 7:01 AM EST Gender Identity Male 03/06/2020 5:57 PM EDT Sexual Orientation Straight 03/06/2020 5: 57 PM EDT documented as of this encounter Functional Status * Are you deaf or do you have serious difficulty hearing? Answer Date of Assessment Author No 04/16/2014 11:00 AM Lilly Fenton OSA * Are you blind or do you have serious difficulty seeing, even when wearing glasses? Answer Date of Assessment Author No 04/16/2014 11:00 AM Lilly Fenton siria A, ARTEMIO * Do you have serious difficulty walking or climbing stairs? (5 years old or older) Answer Date of Assessment Author No 04/16/2014 11:00 AM Lilly Fentonmihaelat A, ARTEMIO * Do you have difficulty dressing or bathing? (5 years old or older) Answer Date of Assessment Author No 04/16/2014 11:00 AM ALLEN Murphy Lilly siria A, ARTEMIO * Because of a physical, mental, or emotional condition, do you have difficulty doing errands alone such as visiting a doctor’s office or shopping? (15 years old or older) Answer Date of Assessment Author No 04/16/2014 11:00 AM ALLEN Murphy Lilly siria Strickland, ARTEMIO documented as of this encounter Mental Status * Because of a physical, mental, or emotional condition, do you have serious difficulty concentrating, remembering, or making decisions? (5 years old or older) Answer Entry Date Author No 04/16/2014 11:00 AM ALLEN Murphy Lilly siria Strickland, ARTEMIO documented in this encounter Progress Notes * Candelaria Guardado, [facility] - 09/11/2024 2:00 PM EDT MEDICATION THERAPY MANAGEMENT DEFERASIROX TREATMENT PROGRESS NOTE Roberto Paula [phone] Patient Phone Numbers Preferred Lab: [facility] Communication: Left message Treatment: Medication: Deferasirox (Jadenu) Indication/Staging/Diagnosis Code: iron overload due to transfusions / E83.111 Dose Basis: ~10mg/kg (weight 124kg 02/07/24) Dose: 1260mg (3-360mg + 1-180mg tab) daily (DI 02/24/24) Administration: empty stomach or light meal Start Date: 07/12/23 Primary Corporate Director Talent Assessment/Oncologist: Dr. Maddie Mendoza Supportive Care Meds: Ondansetron Prophylactic Meds: None Relevant Chronic Medications: Category Medications Pertinent Notes Antihypertensives Metoprolol ER 25mg daily Furosemide 40mg daily Imdur ER 30mg daily Managed by cardiology Prescribed by PCP Antidiabetic Glipizide ER 10mg daily Repaglinide 2mg ACHS Metformin ER 500mg BID Prescribed by PCP Anticoagulation ASA Pt reported Treatment History: None Interval History: Per ANDER Antonio, encounter 06/27/23 addendum 07/18/23, pt approved for [employer] PAP and will receivedrug through orchestra musician Changes to medication list since last visit? No Assessment and Plan: Ferritin elevated and increasing Per discussion with Dr. Mendoza, continue current deferasirox dose in light or CKD Repeat ferritin level with OV Ordered twice weekly cbcd, cmp, and monthly ferritin Assessment of compliance: N/A Dose adjustment needed based on lab or adverse drug reaction? No Follow up: 1 month OV/labs; 2 months MTM with anticipated labs Candelaria Guardado, PharmD, BCOP Clinical Pharmacist, [facility] Oral Chemotherapy [facility] 09/11/2024, 2:31 PM Monitoring Parameters: Estimated CrCl CKD Stage III Hepatitis panel Latest Reference Range & Units 10/19/22 08:08 Hepatitis B Surface Antigen Negative Negative Hepatitis B Surface Antibody, Quantitative mIU/mL <3.5 HEPATITIS B SURFACE ANTIBODY Rpt Hepatitis B Surface Antibody, Interpretation NOT immune to Hepatitis B Virus Hepatitis B Surface Antibody, Qualitative Negative Hepatitis B Core Antibodies IgG and IgM Negative Negative test N/A - male Suggested lab monitoring Suggested labs: Transfusional iron overload: Ferritin baseline then monthly, CBCd baseline then monthhl, renal function weekly x 1 month then monthly; LFTs baseline, q2w x 1 mon, then monthly, urinalysis including urine protein monthly All patients: auditory and ophthalmologic exams baseline and yearly Treatment Parameters Pertinent labs: Latest Reference Range & Units 07/16/24 07:49 08/13/24 07:52 09/10/24 07:44 Ferritin 30 - 400 ng/mL 3,886 (H) 4,061 (H) 4,694 (H) Time Spent on Encounter: 6 - 10 minutes Encounter Group: Hematology Encounter Interventions Item Category: Oral Chemotherapy Deferasirox Problem/Rationale: Effectiveness: Needs additional monitoring - Medication Requires monitoring Safety: Needs additional monitoring - Medication Requires monitoring Pharmacist Intervention(s): Clarification with Provider, Lab monitoring, and Orders labs Magnitude of Intervention: Monitoring with direction (Level 1) Electronically signed by Candelaria Guardado [facility] at 09/11/2024 2:32 PM EDT documented in this encounter Plan of Treatment Upcoming Encounters Date Type Department Care Team (Late st Contact Info) Description 09/13/2024 7:30 AM EDT Laboratory Laboratory [facility] [place] [address] [place], [place] [phone] [place], Lab Scenery [address] [place], [place] [address] 09/13/2024 8:00 AM EDT Nurse Only Hematology/Oncology Scenery [place] Ruffin [address] [place], [place] [phone] [place], Nurse Hem Onc Scenery [address] [place] [address] 09/17/2024 7:50 AM EDT Laboratory Laboratory [facility] Arminda Ruffin [address] [place], [place] [phone] [place], Lab Scenery [address] [place], [place] [address] 09/17/2024 8:30 AM EDT Nurse Only Hematology/Oncology [facility] Arminda Ruffin [address] [place], [place] [phone] [place], Nurse Hem Onc Scenery [address] [place], [place] [address] 09/18/2024 2:00 PM EDT Office Visit Podiatry [facility], [address] [place] [address] Umesh Larson, MAKENZIE [address] [place] [address] 09/20/2024 7:30 AM EDT Laboratory Laboratory [facility] Arminda Ruffin [address] [place] [phone] [place], Lab Scenery [address] [place] [address] 09/20/2024 8:30 AM EDT Nurse Only Hematology/Oncology Scenery [place] [address] [place], [place] [phone] [place], Nurse Hem Onc Scenery [address] [place], [place] [address] 09/24/2024 7:30 AM EDT Laboratory Laboratory [facility] Arminda Ruffin [address] [place], [place] [phone] [place], Lab Scenery [address] [facility] [place], [place] [address] 09/24/2024 8:30 AM EDT Nurse Only Hematology/Oncology [facility] Arminda R[place] [address] [place], [place] [phone] [place], Nurse Hem Onc Scenery [address] [place], [place] [address] 09/25/2024 8:45 AM EDT Hem/Onc Treatment Hematology/Oncology Treatment, [place] [address] [place], [place] [phone] [place], Chair 3 Hem Onc Scenery [address] [place], [place] [address] 09/26/2024 12:20 PM EDT Office Visit [facility] [address] [place] [address] Sam Quiroz PA-Jayde [address] [place] [address] 10/03/2024 9:30 AM EDT Office Visit Hematology[facility] [place] [address] [place] [phone] Azael Mendoza MD [address] [place], [place] [address] 10/05/2024 2:30 PM EDT Office Visit [facility] [address] [place] [address] [place] [address], [facility] [address] [place] [address] 11/02/2024 2:00 PM EDT Office Visit [facility] 68 [facility] [place] [phone] Sam Quiroz PA-C [address] [place] [address] 11/06/2024 9:00 AM EDT Pharmacy Pharmacy Hematology Oncology [facility] [address] [place] [address] [facility], [facility] Hem/Onc [address] [place] [address] 01/25/2025 8:30 AM EDT Office Visit Cardiology, [facility] [address] [place] [phone] Mora Richter [facility]-C [facility] [place] [address] Scheduled Procedures Name Priority Associated Diagnoses Date/Ti me COLONOSCOPY FLEXIBLE PROXIMAL DIAGNOSTIC Recall History of colon polyps Health Maintenance Due Date Last Done Comments Colonoscopy 03/26/2023 03/26/2020, 07/23, 08/17/2016, Additional history exists DTap/Tdap Vaccines (3 - Td or Tdap) 02/29/2024 02/28/2014, 11/20/2007 COVID-19 Vaccine ( season) 2024 03/28/2024, 04/01/2023, 02/08/2022, Additional history exists Adult Wellness Visit 12/12/2024 12/13/2023, 08/16/2022, 08/13/2021 Depression Screening 01/02/2025 01/03/2024 Diabetic Eye Exam 01/30/2025 01/31/2024, , 01/31/2024, Additional history exists HbA1c 02/06/2025 08/06/2024, 04/22, 02/06/2024, Additional history exists GFR 03/12/2025 09/10/2024, 08/21, 08/27/2024, Additional history exists Albumin/Creatinine Ratio 08/09/2025 025, 11/11/2022, 07/27/2021, Additional history exists CKD PHOS USE SMARTSET 31653 09/03/202508/21, 07/04/2023, 01/29/2022, Additional history exists CKD HGB USE SMARTSET 73656 09/10/202509/10, 09/10/2024, 09/06/2024, Additional history exists Hepatitis B Vaccine Completed 09/19/2003, 05/09/2003, 03/12/2003 Pneumococcal Vaccine: 50+ Years Completed 11/07/2017, 01/01/2016, 01/15/2008 Zoster Vaccines Completed 06/26/2020, 02/20, 07/04/2013 Influenza Vaccine (FLU shot) Completed 01/30/2024, 01/25/2023, 02/03/2022, Additional history exists Diabetic Foot Exam Discontinued 04/10/2024, 1 , 02/03/2022, Additional history exists HPV (Gardasil) Vaccine Aged Out No lo nger eligible based on patient's age to complete this topic MENINGOCOCCAL (MENACTRA/MENVEO) Aged Out No longer eligible based on patient's age to complete this topic Meningitis B Vaccine (Bexsero/Trumemba) Aged Out No longer eligible based on patient's age to complete this topic documented as of this encounter Medical Devices Implanted Type Area Assistant Plant Controller Device Identifier Shelf Expiration Date Model / Serial / Lot Lens Intraoc 22.0 - [id number] - [id number] Implanted:Qty : 1 on 04/03/2019 by Dylan Byrd MD at [facility] Left: Eye BAUSCH 11/20/2023 [id number] / [id number] / Lens Intraoc 21.5 - [id number] - [id number] Implanted:Qty : 1 on 04/12/2019 by Dylan Byrd MD at OR [facility] Right: Eye BAUSCH 12/21/2023 [id number] / [id number] / [id number] Port Implant W/8f Poly Cath - [id number] Implanted:Qty : 1 on 01/25/2023 by Leon Camacho DO at OR [facility] Right: Chest CR BARD : PERIPHERAL VASCULAR [id number] 01/21/2024 [id number] / / [id number] documented as of this encounter Visit Diagnoses Diagnosis Iron overload, 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 Care Teams Turner Machine Operator Relationship Specialty Start Date End Date Sam Quiroz PA-C [address] [place] [address] [place] [address] PCP - General Physician Traffic Coordinator 06/17/21 documented as of this encounter
--- OUTSIDE RECORDS SUMMARY | 2024-09-15 20:47 | External Medical Summary | Summary of Care ---
Author Name Unknown Organization [facility] Address [address] [place] [address] Phone [phone] Care Team Providers Care Dike Supervisor Name Role Phone Sam Quiroz PA-C Primary Care Provider [phone] Reason for Visit * Reason Onset Date Comments Advice 09/03/2024 Office notes for dme - fax request Encounter Details Date Type Department Care Team ([facility] st Contact Info) Description 09/03/[address] [phone] Sam Quiroz PA-C [address] [place] [phone] Advice (Office notes for dme - fax request) Allergies Active Allergy Reactions Criticality Noted Date [...] Active Additional Information Patient taking differently:8 mg [id number] PRN, Nausea, Reported on 05/04/2024 Budesonide-Formot finesse [...] hemoglobin A1c goal of less than 7.0% ([facility]) Take 2 tablets before each meal and [...] 5 5 8:15 AM EDT 025 Active Theodorauch Tiera Casillas 33GIndications:Ty pe 2 diabetes mellitus with hemoglobin A1c goal of less than or equal to 9.0% ([facility]),Type 2 diabetes mellitus with stage 3b chronic kidney disease, without long-term current use of insulin (HCC),Other vitamin B12 deficiency anemias Use to test blood sugar once daily and as needed for hypoglycemic symptoms E11.9 100 Each 11 025 Active [employer] Delica Lancing DevIndications:Ty pe 2 diabetes mellitus with hemoglobin A1c goal of less than or equal to 9.0% ([facility]),Type 2 diabetes mellitus with stage 3b chronic kidney disease, without long-term current use of insulin ([facility]),Other vitamin B12 deficiency anemias Use to test blood sugar once daily and as needed for hypoglycemic symptoms E11.9 1 Each 025 Active Submitnetio Flex System w/Device KitIndications:Ty pe 2 diabetes mellitus with hemoglobin A1c goal of less than or equal to 9.0% ([facility]),Type 2 diabetes mellitus with stage 3b chronic kidney disease, without long-term current use of insulin ([facility]),Other vitamin B12 deficiency anemias Use to test blood sugar once daily and as needed for hypoglycemic symptoms E11.9 1 Kit Active PASSNFLY In Vitro Strip (Glucose Blood)Indications :Type 2 diabetes mellitus with hemoglobin A1c goal of less than or equal to 9.0% ([facility]),Type 2 diabetes mellitus with stage 3b chronic kidney disease, without long-term current use of insulin ([facility]),Other vitamin B12 deficiency anemias Use to test blood sugar once daily and as needed for hypoglycemic symptoms E11.9 100 Strip 11 025 Active Folic Acid 1 MG Oral TabletIndications :MDS (myelodysplastic syndrome) ([facility]) TAKE 1 TABLET BY MOUTH EVERY MORNING 90 Tablet 3 025 Active Jardiance 25 MG Oral Tablet (Empagliflozin) Take 1 Tablet by mouth in the morning. 90 Tablet 025 Active metFORMIN HCl ER 500 MG Oral Tablet Extended Release 24 Hour (Glucophage XR)Indications:Ty pe 2 diabetes mellitus with hemoglobin A1c goal of less than or equal to 9.0% ([facility]) Take 1 Tablet by mouth in the morning and 1 Tablet in the evening. 180 Tablet 3 025 Active BD Pen Needle Naomi 2nd Gen 32G X 4 MM (Insulin Pen Needle)Indication s:Type 2 diabetes mellitus with hemoglobin A1c goal of less than or equal to 9.0% ([facility]) Use to inject insulin once daily E11.9 100 Each 3 025 Active Insulin Glargine Solostar 100 UNIT/ML Subcutaneous Solution Pen-injectorIndic ations:Type 2 diabetes mellitus with hemoglobin A1c goal of less than or equal to 9.0% ([facility]) Inject 15 Units under the skin in [...] mRNA, LNP-s, No Pre serve, 2-Dose Series (Cuurio) 07/18/2020 COVID-19, MRNA-LNP, PF, 30 M CG/0.3 mL, 12 YRS AND ABOVE, IM [email or web address] 03/28/2024 Covid-19, Mrna, Lnp-s, Pf, B ivalent, 30 Mcg, IM, 12 yrs and above (Pfizer) 02/08/2022 Hepatitis B, 20+ yrs 09/19/2003,05/09/2003,03/12 Pneumococcal Conjugate Vacc, 13 Valent (Prevnar) 01/01/2016 Pneumococcal Polysaccharide PPV23 (Pneumovax) 11/07/2017,01/15/2008 Seasonal Influenza Vac., MDV , IM, 0.5 mL (Fluzone) 03/05/2014,03/12/2013,03/04/2012,03/04,02/20/2010,02/09/2009,02/21/2008 ,05/02/2006,03/12/2003,04/27/2001 Seasonal Influenza, High Dos e, Trivalent, PF, [...] 01/03/2024 Does the household have a re gular source of income? (Household - for ages [...] 11:00 AM Lilly Fentonmihaelat A, ARTEMIO * Are you blind or do you have serious difficulty seeing, even when wearing glasses? Answer Date of Assessment Author No 04/16/2014 11:00 AM Lilly Fentonaret A, ARTEMIO * Do you have serious difficulty walking or climbing stairs? (5 years old or older) Answer Date of Assessment Author No 04/16/2014 11:00 AM Lilly Fenton argaret A, ARTEMIO * Do you have difficulty dressing or bathing? (5 years old or older) Answer Date of Assessment Author No 04/16/2014 11:00 AM Lilly Fentont A, ARTEMIO * Because of a physical, mental, or emotional condition, do you have difficulty doing errands alone such as visiting a doctor’s office or shopping? (15 years old or older) Answer Date of Assessment Author No 04/16/2014 11:00 AM Lilly Fentont A, ARTEMIO documented as of this encounter Mental Status * Because of a physical, mental, or emotional condition, do you have serious difficulty concentrating, remembering, or making decisions? (5 years old or older) Answer Entry Date Author No 04/16/2014 11:00 AM Lilly Fentont A, ARTEMIO documented in this encounter Miscellaneous Notes * Addendum Note - Sam Quiroz PA-C - 09/11/2024 8:26 AM EDTAddended by: SAM QUIROZ on: 09/11/2024 08:26 AM Modules accepted: Orders * Telephone Encounter - Sam Quiroz PA-C - 09/11/2024 8:26 AM EDT Paper prescription printed. Flavio * Telephone Encounter - Patience Bryant TECH - 09/07/2024 3:17 PM EDT [facility] calling to check on status of Rx for Pt's Freestlye Danica 2 sensors. Asking high priority fora new Rx to be faxed to [phone] to [employer]. Thank you, Patience Bryant [facility] Care Transitions Coordinator [facility] ([facility] 09/07/2024, 3:19 PM * Telephone Encounter - Alicia Ford LPN - 09/05/2024 1:43 PM EDT Please advise. * Telephone Encounter - Sarah Davidson PHARM Tech - 09/04/2024 3:19 PM EDT [facility] returning call. They can't process the order for the freestyle danica 3 plus because the insurance won't cover the upgrade. Please send in a order for the freestyle danica 2 sensors. Sarah Billings O[place] Charger [facility] 09/04/2024 3:20 PM * Telephone Encounter - Adriane Shipman OSA - 09/04/2024 9:22 AM EDT Will fax * Telephone Encounter - Oleg Sharma OSA - 09/03/2024 4:43 PM EDT Maximilian of [employer], a [place] company for diabetes suppllies, called. [phone] Requesting infor for patient's Danica script They need office notes from 05/04/24 by Sam Quiroz along with a current medication list showing insulin. Please fax to [phone] to [employer]. documented in this encounter Plan of Treatment Upcoming Encounters Date Type Department Care Team (Late st Contact Info) Description 09/11/2024 9:00 AM EDT Pharmacy Pharmacy Hematology Oncology [facility] [address] [place] [address] [facility], [facility] Hem/Onc [address] [place] [address] 09/13/2024 7:30 AM EDT Laboratory Laboratory Scenery [place] [address] [place] [phone] [place], Lab Scenery [address] [place] [address] 09/13/2024 8:00 AM EDT Nurse Only Hematology/Oncology Scenery Arminda [place] [address] [place] [phone] [place], Nurse Hem Onc Scenery [address] [place] [address] 09/17/2024 7:50 AM EDT Laboratory Laboratory [facility] [place] [address] [place], [place] [address] [place], Lab Scenery [address] [place], [place] [address] 09/17/2024 8:30 AM EDT Nurse Only Hematology/Oncology Scenery Arminda [place] [address] [place], [place] [address] [place], Nurse Hem Onc Scenery [address] [place], [place] [address] 09/18/2024 2:00 PM EDT Office Visit Podiatry [address] [place] [address] Umesh Larson, MAKENZIE [address] [place], [place] [phone] 09/20/2024 7:30 AM EDT Laboratory Laboratory [facility] Arminda [place] [address] [place], [place] [address] [place], Lab Scenery [address] [facility] [place], [place] [address] 09/20/2024 8:30 AM EDT Nurse Only Hematology/Oncology Scenery Arminda [place] [address] [place], [place] [phone] [place], Nurse Hem Onc Scenery [address] [place], [place] [address] 09/24/2024 7:30 AM EDT Laboratory Laboratory [facility] Arminda [place] [address] [place], [place] [address] [place], Lab Scenery [address] [facility] [place], [place] [address] 09/24/2024 8:30 AM EDT Nurse Only Hematology/Oncology [facility] [place]inda [place] [address] [place], [place] [phone] [place], Nurse Hem Onc Scenery [address] [place], [place] [address] 09/25/2024 8:45 AM EDT Hem/Onc Treatment Hematology/Oncology Treatment, [place] [address] [place], [place] [phone] [place], Chair 3 Hem Onc Scenery [address] [place], [place] [address] 09/26/2024 12:20 PM EDT Office Visit [facility] [address] [facility] [place] [phone] Sam Quiroz PA-C [address] [place] [address] [place] [address] 10/03/2024 9:30 AM EDT Office Visit Hematology/Oncology [facility] Arminda [place] [address] [place], [place] [address] Azael Mendoza MD [address] [place] [address] 10/05/2024 2:30 PM EDT Office Visit Pharmacy [facility] [address] [place] [address] Pharmacist2, [facility] [address] [address] 11/02/2024 2:00 PM EDT Office Visit Family Practice [facility] [address] [place] [address] Sam Quiroz PA-C [address] [place] [address] 01/25/2025 8:30 AM EDT Office Visit Cardiology, [facility] [address] [place] [phone] Mora Richter PA-C 400 [facility] [place] [address] Scheduled Procedures Name Priority Associated Diagnoses [...] Additional history exists CKD PHOS USE SMARTSET 11784 09/03/202508/21, 07/04/2023, 01/29/2022, Additional history exists CKD HGB USE SMARTSET 20331 09/10/202509/10, 09/10/2024, 09/06/2024, Additional history exists Hepatitis [...] this encounter Medical Devices Implanted Type Area Silk Worker Device Identifier Shelf Expiration Date Model / Serial / Lot Lens Intraoc 22.0 - [id number] - [id number] Implanted:Qty : 1 on 04/03/2019 by Dylan Byrd MD at [facility] Left: Eye BAUSCH 11/20/2023 [id number] / [id number] / Lens Intraoc 21.5 - [id number] - [id number] Implanted:Qty : 1 on 04/12/2019 by Dylan Byrd MD at OR [facility] Right: Eye BAUSCH 12/21/2023 [id number] / [id number] / [id number] Port Implant W/8f Poly Cath - [id number] Implanted:Qty : 1 on 01/25/2023 by Leon Camacho DO at OR [facility] Right: Chest CR BARD : PERIPHERAL VASCULAR [id number] 01/21/2024 [id number] / / [id number] documented as of this encounter Advance Directives * Full Code (Latest Code Status on File) Date Activated Date Inactivated Comments 02/27/2014 8:29 PM 03/05/2014 6:28 PM This order reflects the patients wishes and were consensually agreed upon. Care Teams Dike Supervisor Relationship Specialty Start Date End Date Sam Quiroz PA-C [address] [place] [address] PCP - General Physician Records Supervisor 06/17/21 documented as of this encounter
--- OUTSIDE RECORDS SUMMARY | 2024-09-15 20:47 | External Medical Summary ---
Author Name Unknown Address Unknown Organization K09:[facility] [place] [address] Laboratory Report Ordering Provider Test Date Status ROBERTO CARLOS BURGOS 09/13/2024 07:52:56 Final Observation Date Value Abnormality Reference (Units ) Status SYNC LEUKOCYTES IN BLOOD BY AUTOMATED COUNT 09/13/2024 07:52:56 4.08 4.00-10.80 (K/uL) Final Segs 09/13/2024 07:52:56 52.7 40.0-75.0 (%) Final Lymphs % 09/13/2024 07:52:56 19.7 18.0-42.0 (%) Final Monos 09/13/2024 07:52:56 10.3 1.0-11.0 (%) Final Eosinophils 09/13/2024 07:52:56 16.6 Above high normal 0.0-6.0 (%) Final Basos 09/13/2024 07:52:56 0.7 0.0-2.0 (%) Final Absolute Segs 09/13/2024 07:52:56 2.19 1.80-7.70 (K/uL) Final Lymphs, absolute 09/13/2024 07:52:56 0.82 Below low normal 1.00-4.80 (K/ul) Final Monos, Abs 09/13/2024 07:52:56 0.43 0.00-1.10 (K/uL) Final Eos, Abs 09/13/2024 07:52:56 0.69 0.00-0.70 (K/uL) Final Basos, Abs 09/13/2024 07:52:56 0.03 0.00-0.20 (K/uL) Final Performing Location [facility] [place] [address]
--- OUTSIDE RECORDS SUMMARY | 2024-09-15 20:47 | External Medical Summary ---
Author Name Unknown Address Unknown Organization K09:[facility] [place] [address] Laboratory Report Ordering Provider Test Date Status ROBERTO CARLOS BURGOS 09/13/2024 07:52:56 Final Observation Date Value Abnormality Reference (Units ) Status Nucleated erythrocytes/100 leukocytes [Ratio] in Blood by Automated count 09/13/2024 07:52:56 Final Variant lymphocytes [Presence] in Blood by Light microscopy 09/13/2024 07:52:56 Present Abnormal None Seen Final Giant platelets [Presence] in Blood by Light microscopy 09/13/2024 07:52:56 Present Abnormal None Seen Final Performing Location [facility] [place] [address]
--- OUTSIDE RECORDS SUMMARY | 2024-09-15 20:47 | External Medical Summary | Summary of Care ---
Author Name Unknown Organization [facility] Address [address] [place] [address] Phone [phone] Care Team Providers Care Linker Up Name Role Phone Sam Quiroz PA-C Primary Care Provider [phone] Reason for Visit * Reason Onset Date Comments Advice 09/03/2024 Office notes for dme - fax request Encounter Details Date Type Department Care Team ([facility] st Contact Info) Description 09/03/[address] [phone] Sam Quiroz PA-C [address] [place] [phone] Advice (Office notes for dme - [...] Active Additional Information Patient taking differently:8 mg EhnkT1R PRN, Nausea, Reported on 05/04/2024 Budesonide-Formot finesse [...] hemoglobin A1c goal of less than 7.0% ([facility]) Take 2 tablets before each meal and [...] of less than or equal to 9.0% ([facility]),Type 2 diabetes mellitus with stage 3b chronic kidney disease, without long-term current use of insulin (HCC),Other vitamin B12 deficiency anemias Use to test blood sugar once daily and as needed for hypoglycemic symptoms E11.9 100 Each 11 025 Active Livevol Delica Lancing DevIndications:Ty pe 2 diabetes mellitus with hemoglobin A1c goal of less than or equal to 9.0% ([facility]),Type 2 diabetes mellitus with stage 3b chronic kidney disease, without long-term current use of insulin ([facility]),Other vitamin B12 deficiency anemias Use to test blood sugar once daily and as needed for hypoglycemic symptoms E11.9 1 Each 025 Active Inventys Thermal Technologiesio Flex System w/Device KitIndications:Ty pe 2 diabetes mellitus with hemoglobin A1c goal of less than or equal to 9.0% ([facility]),Type 2 diabetes mellitus with stage 3b chronic kidney disease, without long-term current use of insulin ([facility]),Other vitamin B12 deficiency anemias Use to test blood sugar once daily and as needed for hypoglycemic symptoms E11.9 1 Kit Active Classical Connection In Vitro Strip (Glucose Blood)Indications :Type 2 diabetes mellitus with hemoglobin A1c goal of less than or equal to 9.0% ([facility]),Type 2 diabetes mellitus with stage 3b chronic kidney disease, without long-term current use of insulin ([facility]),Other vitamin B12 deficiency anemias Use to test blood sugar once daily and as needed for hypoglycemic symptoms E11.9 100 Strip 11 025 Active Folic Acid 1 MG Oral TabletIndications :MDS (myelodysplastic syndrome) ([facility]) TAKE 1 TABLET BY MOUTH EVERY MORNING 90 Tablet 3 025 Active Jardiance 25 MG Oral Tablet (Empagliflozin) Take 1 Tablet by mouth in the morning. 90 Tablet 025 Active metFORMIN HCl ER 500 MG Oral Tablet Extended Release 24 Hour (Glucophage XR)Indications:Ty pe 2 diabetes mellitus with hemoglobin A1c goal of less than or equal to 9.0% ([facility]) Take 1 Tablet by mouth in the morning and 1 Tablet in the evening. 180 Tablet 3 025 Active BD Pen Needle Naomi 2nd Gen 32G X 4 MM (Insulin Pen Needle)Indication s:Type 2 diabetes mellitus with hemoglobin A1c goal of less than or equal to 9.0% ([facility]) Use to inject insulin once daily E11.9 100 Each 3 025 Active Insulin Glargine Solostar 100 UNIT/ML Subcutaneous Solution Pen-injectorIndic ations:Type 2 diabetes mellitus with hemoglobin A1c goal of less than or equal to 9.0% ([facility]) Inject 15 Units under the skin in [...] mRNA, LNP-s, No Pre serve, 2-Dose Series ([address]) 07/18/2020 COVID-19, MRNA-LNP, PF, 30 M CG/0.3 mL, 12 YRS AND ABOVE, IM ([facility]) 03/28/2024 Covid-19, Mrna, Lnp-s, Pf, B [...] 11:00 AM Lilly Fentont A, ARTEMIO * Are you blind or do you have serious difficulty seeing, even when wearing glasses? Answer Date of Assessment Author No 04/16/2014 11:00 AM Lilly Fentonaret A, ARTEMIO * Do you have serious difficulty walking or climbing stairs? (5 years old or older) Answer Date of Assessment Author No 04/16/2014 11:00 AM Lilly Fentonaret A, ARTEMIO * Do you have difficulty [...] documented in this encounter Miscellaneous Notes * Telephone Encounter - Alicia Ford LPN - 09/11/2024 2:47 PM EDT Faxed to number given below. * Addendum Note - Sam Quiroz PA-C [...] fora new Rx to be faxed to [phone] to [facility]. Thank you, Patience Bryant Development Technician [facility] ([facility] 09/07/2024, 3:19 PM * Telephone Encounter - Alicia Ford LPN - 09/05/2024 1:43 PM EDT Please advise. * Telephone Encounter - Sarah Davidson PHARM Tech - 09/04/2024 3:19 PM EDT [facility] returning call. They can't process the order for the freestyle danica 3 plus because the insurance won't cover the upgrade. Please send in a order for the freestyle danica 2 sensors. Sarah Billings Chief Juvenile Probation Officer [facility] 09/04/2024 3:20 PM * Telephone Encounter - Adriane Shipman OSA - 09/04/2024 9:22 AM EDT Will fax * Telephone Encounter - Oleg Sharma OSA - 09/03/2024 4:43 PM EDT Maximilian of [employer], a [place] company for diabetes suppllies, called. [phone] Requesting infor for patient's Danica script They need office notes from 05/04/24 by Sam Quiroz along with a current medication list showing insulin. Please fax to [phone] to [facility]. documented in this encounter Plan of Treatment Upcoming Encounters Date Type Department Care Team (Late st Contact Info) Description 09/13/2024 7:30 AM EDT Laboratory Laboratory [facility] [place] [address] [place], [place] [phone] [place], Lab Scenery [address] [place], [place] [address] 09/13/2024 8:00 AM EDT Nurse Only Hematology/Oncology [facility] [place] [address] [place] [address] [place], Nurse Hem Onc Scenery [address] [place] [address] 09/17/2024 7:50 AM EDT Laboratory Laboratory [facility] [place] [address] [place], [place] [address] [place], Lab Scenery [address] [facility] [place], [place] [address] 09/17/2024 8:30 AM EDT Nurse Only Hematology/Oncology [facility] [place] [address] [place], [place] [phone] [place], Nurse Hem Onc Scenery [address] [place] [address] 09/18/2024 2:00 PM EDT Office Visit Podiatry [address] [place] [address] Umesh Larson, MAKENZIE [address] [place] [address] 09/20/2024 7:30 AM EDT Laboratory Laboratory [facility] [place] [address] [place], [place] [address] [place], Lab Scenery [address] [facility] [place], [place] [address] 09/20/2024 8:30 AM EDT Nurse Only Hematology/Oncology [facility] [place] [address] [place], [place] [phone] [place], Nurse Hem Onc Scenery [address] [place], [place] [address] 09/24/2024 7:30 AM EDT Laboratory Laboratory [facility] [place] [address] [place], [place] [address] [place], Lab Scenery [address] [facility] [place] [address] 09/24/2024 8:30 AM EDT Nurse Only Hematology/Oncology [facility] [place] [address] [place], [place] [address] [place], Nurse Hem Onc Scenery [address] [place], [place] [address] 09/25/2024 8:45 AM EDT Hem/Onc Treatment Hematology/Oncology Treatment, [place] [address] [place], [place] [address] [place], Chair 3 Hem Onc Scenery [address] [place], [place] [address] 09/26/2024 12:20 PM EDT Office Visit [facility] [address] [place] [phone] Sam Quiroz PA-C [address] [place] [address] 10/03/2024 9:30 AM EDT Office Visit Hematology/Oncology [facility] [place] [address] [place], [place] [phone] Azael Mendoza MD [address] [place] [address] 10/05/2024 2:30 PM EDT Office Visit Pharmacy [facility] [address] [place] [address] Pharmacist, [facility] [address] [place] [address] 11/02/2024 2:00 PM EDT Office Visit [facility] [address] [place] [address] Sam Quiroz PA-C [address] [place], [place] [phone] 11/06/2024 9:00 AM EDT Pharmacy Pharmacy Hematology Oncology [facility] [address] [place] [address] [facility], [facility] Hem/Onc [address] [place] [address] 01/25/2025 8:30 AM EDT Office Visit Cardiology, [facility] [address] [place] [phone] Mora Richter PA-C [address] [place], [place] [phone] Scheduled Procedures Name Priority Associated Diagnoses Date/Ti [...] Additional history exists CKD PHOS USE SMARTSET 03629 09/03/202508/21, 07/04/2023, 01/29/2022, Additional history exists CKD HGB USE SMARTSET 16103 09/10/202509/10, 09/10/2024, 09/06/2024, Additional history exists Hepatitis [...] this encounter Medical Devices Implanted Type Area Record Changer Tester Device Identifier Shelf Expiration Date Model / Serial / Lot Lens Intraoc 22.0 - [id number] - [id number] Implanted:Qty : 1 on 04/03/2019 by Dylan Byrd MD at OR [facility] Left: Eye BAUSCH 11/20/2023 [id number] / [id number] / Lens Intraoc 21.5 - [id number] - [id number] Implanted:Qty : 1 on 04/12/2019 by Dylan Byrd MD at OR [facility] Right: Eye BAUSCH 12/21/2023 [id number] / [id number] / [id number] Port Implant W/8f Poly Cath - [id number] Implanted:Qty : 1 on 01/25/2023 by Leon Camacho DO at OR [facility] Right: Chest CR BARD : PERIPHERAL VASCULAR [id number] 01/21/2024 [id number] / / [id number] documented as of this encounter Advance Directives * Full Code (Latest Code Status on File) Date Activated Date Inactivated Comments 02/27/2014 8:29 PM 03/05/2014 6:28 PM This order reflects the patients wishes and were consensually agreed upon. Care Teams Linker Up Relationship Specialty Start Date End Date Sam Quiroz PA-C [address] [place] [address] [place] [phone] PCP - General Physician Learning Technologist 06/17/21 documented as of this encounter
--- OUTSIDE RECORDS SUMMARY | 2024-09-15 20:47 | External Medical Summary | Summary of Care ---
Author Name Unknown Organization [facility] Address [address] [facility] [address] Phone [phone] Care Team Providers Care Telegraphic Typewriter Installer Name Role Phone Sam Quiroz PA-C Primary Care Provider [phone] Encounter Details Date Type Department Care Team (Late st Contact Info) Description 09/11/2024 Orders Only Hematology/Oncology [place] [place] 200 [facility] [place] [phone] Azael Mendoza MD 200 [facility] [place] [address] MDS (myelodysplastic syndrome) (HCC)* Allergies Active Allergy Reactions Criticality Noted Date [...] Active Additional Information Patient taking differently:8 mg HdgkC1B PRN, Nausea, Reported on 05/04/2024 Budesonide-Formot finesse [...] 5 5 8:15 AM EDT 025 Active Shaquille Casillas 33GIndications:Ty pe 2 diabetes mellitus with hemoglobin A1c goal of less than or equal to 9.0% ([facility]),Type 2 diabetes mellitus with stage 3b chronic kidney disease, without long-term current use of insulin (HCC),Other vitamin B12 deficiency anemias Use to test blood sugar once daily and as needed for hypoglycemic symptoms E11.9 100 Each 11 025 Active Shaquille Shabazzica Lancing DevIndications:Ty pe 2 diabetes mellitus with [...] hypoglycemic symptoms E11.9 1 Each 025 Active [employer] Flex System w/Device KitIndications:Ty pe 2 diabetes [...] hypoglycemic symptoms E11.9 1 Kit 025 Active [employer] In Vitro Strip (Glucose Blood)Indications :Type 2 [...] directed every 14 days. 6 Each 1 Active documented as of this encounter (statuses [...] mRNA, LNP-s, No Pre serve, 2-Dose Series ([employer]) 07/18/2020 COVID-19, MRNA-LNP, PF, 30 M CG/0.3 mL, 12 YRS AND ABOVE, IM ([facility]) 03/28/2024 Covid-19, Mrna, Lnp-s, Pf, B ivalent, [...] No 01/03/2024 Does the household have a [facility] medical cent[facility] source of income? (Household - for ages [...] Assessment Author No 04/16/2014 11:00 AM Lilly Fenton, ARTEMIO * Are you blind or do you have serious difficulty seeing, even when wearing glasses? Answer Date of Assessment Author No 04/16/2014 11:00 AM Lilly Fenton vanessat A, ARTEMIO * Do you have serious difficulty walking or climbing stairs? (5 years old or older) Answer Date of Assessment Author No 04/16/2014 11:00 AM ALLEN Murphy Lilly vanessat A, ARTEMIO * Do you have difficulty dressing or bathing? (5 years old or older) Answer Date of Assessment Author No 04/16/2014 11:00 AM ALLEN JeffreyLilly A, ARTEMIO * Because of a physical, mental, or emotional condition, do you have difficulty doing errands alone such as visiting a doctor’s office or shopping? (15 years old or older) Answer Date of Assessment Author No 04/16/2014 11:00 AM ALLEN JeffreyLilly, ARTEMIO documented as of this encounter Mental Status * Because of a physical, mental, or emotional condition, do you have serious difficulty concentrating, remembering, or making decisions? (5 years old or older) Answer Entry Date Author No 04/16/2014 11:00 AM ALLEN JeffreyLilly ARTEMIO documented in this encounter Plan of Treatment Upcoming Encounters Date Type Department Care Team (Late st Contact Info) Description 09/13/2024 7:30 AM EDT Laboratory Laboratory [facility] [place] [address] [place], [place] [address] [place] Lab [facility] [address] [place], [place] [address] 09/13/2024 8:00 AM EDT Nurse Only Hematology/Oncology [facility] [place] [address] [place], [place] [address] [place], Nurse Hem Onc [facility] [address] [place], [place] [address] 09/17/2024 7:50 AM EDT Laboratory Laboratory [facility] [place] [address] [place] [address] [place] Lab Scenery [address] [place], [place] [address] 09/17/2024 8:30 AM EDT Nurse Only Hematology/Oncology Scenery [place] [address] [place] [phone] [place], Nurse Hem Onc Scenery [address] [place] [address] 09/18/2024 2:00 PM EDT Office Visit Podiatry [address] [place] [phone] Umesh Larson, DPM [address] [place] [address] 09/20/2024 7:30 AM EDT Laboratory Laboratory [facility] [employer] [address] [place] [phone] [place], Lab Scenery [address] [place] [address] 09/20/2024 8:30 AM EDT Nurse Only Hematology/Oncology [place]enery [place] [address] [place] [phone] [place], Nurse Hem Onc Scenery [address] [place] [address] 09/24/2024 7:30 AM EDT Laboratory Laboratory [place] [address] [place] [address] [place], Lab Scenery [address] [place], [place] [address] 09/24/2024 8:30 AM EDT Nurse Only [facility]ematology/[facility] [place] [address] [place] [phone] [place], Nurse Hem Onc Scenery [address] [place] [address] 09/25/2024 8:45 AM EDT Hem/Onc Treatment Hematology/Oncology Treatment, [place] [address] [place] [address] [place], Chair 3 Hem Onc [facility] 200 [facility] [place], [place] [address] 09/26/2024 12:20 PM EDT Office Visit [facility] [address] [place] [phone] Sam Quiroz PA-C [address] [place] [address] 10/03/2024 9:30 AM EDT Office Visit Hematology/Oncology [facility] 200 [facility] [place], [place] [address] Azael Mendoza MD [address] [facility], [place] [address] 10/05/2024 2:30 PM EDT Office Visit Pharmacy [address] [phone] Pharmacist2, [facility] [address] [address] 11/02/2024 2:00 PM EDT Office Visit [address] [phone] Sam Quiroz PA-C [address] [place] [address] 11/06/2024 9:00 AM EDT Pharmacy Pharmacy Hematology Oncology [facility] [address] [place] [address] [facility], [facility] Hem/Onc [address] [place] [address] 01/25/2025 8:30 AM EDT Office Visit Cardiology, [facility] [address] [place] [phone] Mora Richter PA-C [address] [place] [address] Scheduled Orders Name Type Priority Associated Diagnoses Orde r Schedule CBC WITH WBC DIFFERENTIAL Lab STAT MDS (myelodysplastic syndrome) (HCC) Every Mon, Thurs for 104 Occurrences starting 09/11/2024 until 09/11/2025 COMPREHENSIVE METABOLIC PANEL Lab STAT MDS (myelodysplastic syndrome) (HCC) Every Mon, Thurs for 104 Occurrences starting 09/11/2024 until 09/11/2025 FERRITIN Lab Routine MDS (myelodysplastic syndrome) ([facility]) Every Month for 12 Occurrences starting 09/11/2024 until 09/11/2025 Scheduled Procedures Name Priority Associated Diagnoses Date/Ti [...] Additional history exists CKD PHOS USE SMARTSET 19634 09/03/202508/21, 07/04/2023, 01/29/2022, Additional history exists CKD HGB USE SMARTSET 52162 09/10/202509/10, 09/10/2024, 09/06/2024, Additional history exists Hepatitis [...] this encounter Medical Devices Implanted Type Area Elder Assistant Device Identifier Shelf Expiration Date Model / Serial / Lot Lens Intraoc 22.0 - [id number] - [id number] Implanted:Qty : 1 on 04/03/2019 by Dylan Byrd MD at OR [facility] Left: Eye BAUSCH 11/20/2023 [id number] / [id number] / Lens Intraoc 21.5 - [id number] - [id number] Implanted:Qty : 1 on 04/12/2019 by Dylan Byrd MD at OR [facility] Right: Eye BAUSCH 12/21/2023 [id number] / [id number] / [id number] Port Implant W/8f Poly Cath - [id number] Implanted:Qty : 1 on 01/25/2023 by Leon Camacho DO at OR [facility] Right: Chest CR BARD : PERIPHERAL VASCULAR [id number] 01/21/2024 [id number] / / [id number] documented as of this encounter Visit Diagnoses Diagnosis MDS (myelodysplastic syndrome) (HCC)- Primary Myelodysplastic syndrome, unspecified documented in this encounter Advance Directives * Full Code (Latest Code Status on File) Date Activated Date Inactivated Comments 02/27/2014 8:29 PM 03/05/2014 6:28 PM This order reflects the patients wishes and were consensually agreed upon. Care Teams Telegraphic Typewriter Installer Relationship Specialty Start Date End Date Sam Quiroz PA-C [address] [place] [id number] PCP - General Physician Pest Control Chemical Technician 06/17/21 documented as of this encounter
--- OUTSIDE RECORDS SUMMARY | 2024-09-15 20:47 | External Medical Summary | Summary of Care ---
Author Name Unknown Organization [facility] Address [address] [place] [address] Phone [phone] Care Team Providers Care Veneer Supervisor Name Role Phone Sam Quiroz PA-C Primary Care Provider [phone] Reason for Visit * Reason Comments Nurse Documentation Lab review Encounter Details Date Type Department Care Team (Late st Contact Info) Description 09/13/2024 8:00 AM EDT Nurse Only Hematology/Oncology [facility] [place] [address] [place] [address] [place], Nurse Hem Onc [place] [address] [place] [address] Nurse Documentation (Lab review) Allergies Active Allergy Reactions Criticality Noted Date Comments Ether Low 05/19/2022 Other reaction(s): VOMITING documented as of this encounter (statuses as of 09/13/2024) Medications albuterol (PROVENTIL HFA) 108 (90 BASE) [...] Active Additional Information Patient taking differently:8 mg [id number] PRN, Nausea, Reported on 05/04/2024 Budesonide-Formot finesse [...] 5 5 8:15 AM EDT 025 Active OneTouch Tiera Lanckellee 33GIndications:Ty pe 2 diabetes mellitus with hemoglobin A1c goal of less than or equal to 9.0% (HCC),Type 2 diabetes mellitus with stage 3b chronic kidney disease, without long-term current use of insulin (HCC),Other vitamin B12 deficiency anemias Use to test blood sugar once daily and as needed for hypoglycemic symptoms E11.9 100 Each 11 025 Active PLTech Delica Lancing DevIndications:Ty pe 2 diabetes mellitus with hemoglobin A1c goal of less than or equal to 9.0% ([facility]),Type 2 diabetes mellitus with stage 3b chronic kidney disease, without long-term current use of insulin ([facility]),Other vitamin B12 deficiency anemias Use to test blood sugar once daily and as needed for hypoglycemic symptoms E11.9 1 Each 025 Active PLTech Verio Flex System w/Device KitIndications:Ty pe 2 diabetes mellitus with hemoglobin A1c goal of less than or equal to 9.0% ([facility]),Type 2 diabetes mellitus with stage 3b chronic kidney disease, without long-term current use of insulin ([facility]),Other vitamin B12 deficiency anemias Use to test blood sugar once daily and as needed for hypoglycemic symptoms E11.9 1 Kit 025 Active GetGifted In Vitro Strip (Glucose Blood)Indications :Type 2 diabetes mellitus with hemoglobin A1c goal of less than or equal to 9.0% ([facility]),Type 2 diabetes mellitus with stage 3b chronic kidney disease, without long-term current use of insulin ([facility]),Other vitamin B12 deficiency anemias Use to test blood sugar once daily and as needed for hypoglycemic symptoms E11.9 100 Strip 11 025 Active Folic Acid 1 MG Oral TabletIndications :MDS (myelodysplastic syndrome) ([facility]) TAKE 1 TABLET BY MOUTH EVERY MORNING 90 Tablet 3 025 Active Jardiance 25 MG Oral Tablet (Empagliflozin) Take 1 Tablet by mouth in the morning. 90 Tablet 025 Active metFORMIN HCl ER 500 MG Oral Tablet Extended Release 24 Hour (Glucophage XR)Indications:Ty pe 2 diabetes mellitus with hemoglobin A1c goal of less than or equal to 9.0% ([facility]) Take 1 Tablet by mouth in the morning and 1 Tablet in the evening. 180 Tablet 3 025 Active BD Pen Needle Naomi 2nd Gen 32G X 4 MM (Insulin Pen Needle)Indication s:Type 2 diabetes mellitus with hemoglobin A1c goal of less than or equal to 9.0% ([facility]) Use to inject insulin once daily [...] as of this encounter (statuses as of 09/13/2024) Active Problems Problem Noted Date Diagnosed Date [...] Per Lipid Taxonomy. GERD (gastroesophageal reflux disease) 03/29/200 4 documented as of this encounter (statuses as of 09/13/2024) Resolved Problems Problem Noted Date Diagnosed Date [...] as of this encounter (statuses as of 09/13/2024) Immunizations Name Administration Dates Next Due COVID-19 mRNA, LNP-s, No Pre serve, 2-Dose Series ([place]) 07/18/2020 COVID-19, MRNA-LNP, PF, 30 M CG/0.3 [...] No 01/03/2024 Does the household have a unm hospitallar source of income? (Household - for ages [...] of Assessment Author No 04/16/2014 11:00 AM EST Jeffrey, M argaret A, ARTEMIO * Are you blind or do you have serious difficulty seeing, even when wearing glasses? Answer Date of Assessment Author No 04/16/2014 11:00 AM Lilly Fentont A, ARTEMIO * Do you have serious difficulty walking or climbing stairs? (5 years old or older) Answer Date of Assessment Author No 04/16/2014 11:00 AM Lilly Fentont A, ARTEMIO * Do you have difficulty [...] No 04/16/2014 11:00 AM Lilly Fenton, ARTEMIO documented as of this encounter Mental Status * Because of a physical, mental, or emotional condition, do you have serious difficulty concentrating, remembering, or making decisions? (5 years old or older) Answer Entry Date Author No 04/16/2014 11:00 AM Lilly Fenton, ARTEMIO documented in this encounter Progress Notes * Molly Bolden LPN - 09/13/2024 9:10 AM EDT Approximately 08:50 am: Reviewed lab results with patient; Hgb: 8.6 Plt: 46 Patient voiced understanding, he denies any complaints at this time. documented in this encounter Plan of Treatment Upcoming Encounters Date Type Department Care Team (Late st Contact Info) Description 09/17/2024 7:50 AM EDT Laboratory Laboratory [facility] [place] Ming Hilliard [address] [place] [phone] Marla Hilliard [facility] [place] [address] 09/17/2024 8:30 AM EDT Nurse Only Hematology/Oncology [facility] [place]illiard [address] [place] [phone] [place], Nurse Hem Onc Scenery [address] [place], [place] [address] 09/18/2024 2:00 PM EDT Office Visit Podiatry [facility], [address] [place] [address] Umesh Larson, DPM [address] [place] [address] 09/20/2024 7:30 AM EDT Laboratory Laboratory Sc[place]ery [place] [address] [place], [place] [phone] [place], Lab Scenery [address] [place], [place] [address] 09/20/2024 8:30 AM EDT Nurse Only Hematology/Oncology Sc[place]ery [place] [address] [place], [place] [address] [place], Nurse Hem Onc Scenery [address] [place], [place] [address] 09/24/2024 7:30 AM EDT Laboratory Laboratory [facility] [place] [address] [place], [place] [address] [place], Lab Scenery [address] [place], [place] [address] 09/24/2024 8:30 AM EDT Nurse Only [facility]ematology/On[facility] [place] [address] [place], [place] [address] [place], Nurse Hem Onc Scenery [address] [place] [address] 09/25/2024 8:45 AM EDT Hem/Onc Treatment Hematology/Oncology Treatment, [place] [address] [place] [address] [place], Chair 3 Hem Onc Scenery [address] [place], [place] [address] 09/26/2024 12:20 PM EDT Office Visit [address] [phone] Sam Quiroz PA-C [address] [place] [address] 10/03/2024 9:30 AM EDT Office Visit Hematology/Oncology [facility] 200 [facility] [place] [place] [phone] Azael Mendoza MD 200 [facility] [place] [address] 10/05/2024 2:30 PM EDT Office Visit Pharmacy [address] [phone] [place] [address], [address] [address] 11/02/2024 2:00 PM EDT Office Visit [address] [phone] Sam Quiroz PA-C [address] [place] [address] 11/06/2024 9:00 AM EDT Pharmacy Pharmacy Hematology Oncology [facility] [address] [place] [address] [facility] Hem/Onc [address] [place] [address] 01/25/2025 8:30 AM EDT Office Visit Cardiology, [facility] [address] [place] [phone] Mora Richter [facility]-C [address] [facility] [place] [phone] Scheduled Procedures Name Priority Associated Diagnoses Date/Ti [...] 08/06/2024, 04/22, 02/06/2024, Additional history exists GFR 03/15/2025 09/13/2024, 0405/2024, 09/03/2024, Additional history exists Albumin/Creatinine Ratio 08/09/2025 025, 11/11/2022, 07/27/2021, Additional history exists CKD PHOS USE SMARTSET 26541 09/03/202508/21, 07/04/2023, 01/29/2022, Additional history exists CKD HGB USE SMARTSET 99292 09/13/202509/13, 09/13/2024, 09/10/2024, Additional history exists Hepatitis B Vaccine Completed [...] this encounter Medical Devices Implanted Type Area Sales Representative Church Furniture Device Identifier Shelf Expiration Date Model / Serial / Lot Lens Intraoc 22.0 - [id number] - [id number] Implanted:Qty : 1 on 04/03/2019 by Dylan Byrd MD at OR [facility] Left: Eye BAUSCH 11/20/2023 [id number] / [id number] / Lens Intraoc 21.5 - [id number] - [id number] Implanted:Qty : 1 on 04/12/2019 by Dylan Byrd MD at OR [facility] Right: Eye BAUSCH 12/21/2023 [id number] / [id number] / [id number] Port Implant W/8f Poly Cath - [id number] Implanted:Qty : 1 on 01/25/2023 by Leon Camacho DO at OR [facility] Right: Chest CR BARD : PERIPHERAL VASCULAR [id number] 01/21/2024 [id number] / / [id number] documented as of this encounter Advance Directives * Full Code (Latest Code Status on File) Date Activated Date Inactivated Comments 02/27/2014 8:29 PM 03/05/2014 6:28 PM This order reflects the patients wishes and were consensually agreed upon. Care Teams Veneer Supervisor Relationship Specialty Start Date End Date Sam Quiroz PA-C [address] [place], [place] [address] [phone] PCP - General Physician System Configuration Specialist 06/17/21 documented as of this encounter
--- OUTSIDE RECORDS SUMMARY | 2024-09-15 20:47 | External Medical Summary ---
Author Name Unknown Address Unknown Organization K09:[facility] [address] [place] [address] Laboratory Report Ordering Provider Test Date Status ROBERTO CARLOS BURGOS 09/13/2024 07:52:56 Final Observation Date Value Abnormality Reference (Units ) Status BUN 09/13/2024 07:52:56 22 Above high normal 6-20 (mg/dL) Final Creatinine 09/13/2024 07:52:56 1.5 Above high normal 0.6-1.2 (mg/dL) Final Glomerular filtration rate/1.73 sq M.predicted [Volume Rate/Area] in Serum, Plasma or Blood by Creatinine-based formula (CKD-EPI) 09/13/2024 07:52:56 48 Below low normal >=60 (mL/min) Final eGFR is calculated based on the CKD-EPI 2020 equation. Sodium 09/13/2024 07:52:56 140 135-146 (m mol/L) Final Potassium 09/13/2024 07:52:56 4.2 3.5-5.1 (m mol/L) Final Cl 09/13/2024 07:52:56 103 98-107 (mm ol/L) Final CO2 09/13/2024 07:52:56 27 22-32 (mmo l/L) Final Anion gap 09/13/2024 07:52:56 10 7-15 (mmol /L) Final Glucose 09/13/2024 07:52:56 112 70-120 (mg /dL) Final Albumin 09/13/2024 07:52:56 3.8 3.8-5.0 (g /dL) Final AST (Aspartate aminotransferase) 09/13/2024 07:52:56 23 10-50 (U/L) Final Alk Phos 09/13/2024 07:52:56 75 35-130 (U/ L) Final Bilirubin, Total 09/13/2024 07:52:56 0.6 <=1 .2 (mg/dL) Final Calcium 09/13/2024 07:52:56 9.1 8.4-10.2 ( mg/dL) Final Protein 09/13/2024 07:52:56 6.9 6.0-8.3 (g /dL) Final ALT (Alanine aminotransferase) 09/13/2024 07:52:56 27 10-50 (U/L) Final Performing Location [facility] [place] [address]
--- OUTSIDE RECORDS SUMMARY | 2024-09-15 20:47 | External Medical Summary | Summary of Care ---
Author Name Unknown Organization [facility] Address [address] [place] [address] Phone [phone] Care Team Providers Care Mailroom Personnel Name Role Phone Sam Quiroz PA-C Primary Care Provider [phone] Reason for Visit * Reason Comments Outpatient Testing Encounter Details Date Type Department Care Team ([facility] st Contact Info) Description 09/13/2024 7:30 AM EDT Laboratory Laboratory [facility] [address] [place] [phone] [place], Lab [facility] [address] [place] [address] MDS (myelodysplastic syndrome) (HCC) Allergies Active Allergy Reactions Criticality Noted Date [...] Active Additional Information Patient taking differently:8 mg [id number] PRN, Nausea, Reported on 05/04/2024 Budesonide-Formot finesse [...] for hypoglycemic symptoms E11.9 100 Each 11 Active Active Life Scientific Delica Lancing DevIndications:Ty pe 2 diabetes mellitus with hemoglobin A1c goal of less than or equal to 9.0% ([facility]),Type 2 diabetes mellitus with stage 3b chronic kidney disease, without long-term current use of insulin ([facility]),Other vitamin B12 deficiency anemias Use to test blood sugar once daily and as needed for hypoglycemic symptoms E11.9 1 Each Active Relavance Softwareio Flex System w/Device KitIndications:Ty pe 2 diabetes mellitus with hemoglobin A1c goal of less than or equal to 9.0% ([facility]),Type 2 diabetes mellitus with stage 3b chronic kidney disease, without long-term current use of insulin ([facility]),Other vitamin B12 deficiency anemias Use to test blood sugar once daily and as needed for hypoglycemic symptoms E11.9 1 Kit 025 Active EXPO In Vitro Strip (Glucose Blood)Indications :Type 2 diabetes mellitus with hemoglobin A1c goal of less than or equal to 9.0% ([facility]),Type 2 diabetes mellitus with stage 3b chronic kidney disease, without long-term current use of insulin ([facility]),Other vitamin B12 deficiency anemias Use to test blood sugar once daily and as needed for hypoglycemic symptoms E11.9 100 Strip 11 025 Active Folic Acid 1 MG Oral TabletIndications :MDS (myelodysplastic syndrome) ([facility]) TAKE 1 TABLET BY MOUTH EVERY MORNING 90 Tablet 3 025 Active Jardiance 25 MG Oral Tablet (Empagliflozin) Take 1 Tablet by mouth in the morning. 90 Tablet 025 Active metFORMIN HCl ER 500 MG Oral Tablet Extended Release 24 Hour (Glucophage XR)Indications:Ty pe 2 diabetes mellitus with hemoglobin A1c goal of less than or equal to 9.0% ([facility]) Take 1 Tablet by mouth in the morning and 1 Tablet in the evening. 180 Tablet 3 025 Active BD Pen Needle Naomi 2nd Gen 32G X 4 MM (Insulin Pen Needle)Indication s:Type 2 diabetes mellitus with hemoglobin A1c goal of less than or equal to 9.0% ([facility]) Use to inject insulin once daily [...] mRNA, LNP-s, No Pre serve, 2-Dose Series ([employer]) 07/18/2020 COVID-19, MRNA-LNP, PF, 30 M CG/0.3 mL, 12 YRS AND ABOVE, IM (Nearlyweds-Comirnaty) 03/28/2024 Covid-19, Mrna, Lnp-s, Pf, B ivalent, 30 Mcg, IM, 12 yrs and above ([employer]) 02/08/2022 Pneumococcal Conjugate Vacc, 13 Valent (Prevnar) [...] No 04/16/2014 11:00 AM Lilly Fenton [place], ARTEMIO * Do you have serious difficulty walking or climbing stairs? (5 years old or older) Answer Date of Assessment Author No 04/16/2014 11:00 AM Lilly Fenton vanessat A, ARTEMIO * Do you have difficulty dressing or bathing? (5 years old or older) Answer Date of Assessment Author No 04/16/2014 11:00 AM ALLEN Murphy Lilly [place], ARTEMIO * Because of a physical, mental, [...] siria Strickland, ARTEMIO documented in this encounter Plan of Treatment Upcoming Encounters Date Type Department Care Team (Late st Contact Info) Description 09/17/2024 7:50 AM EDT Laboratory Laboratory [facility] [place] [address] [facility] [place] [phone] [place] Lab [facility] 200 [facility] [place] [address] 09/17/2024 8:30 AM EDT Nurse Only Hematology/Oncology [facility] [place] [address] [place] [address] [place], Nurse Hem Onc [facility] 200 [facility] [place] [address] 09/18/2024 2:00 PM EDT Office Visit Podiatry [address] [place] [phone] Umesh Larson, MAKENZIE [address] [place] [address] 09/20/2024 7:30 AM EDT Laboratory Laboratory [facility] [place] [address] [place], [place] [phone] [place], Lab Scenery [address] [place] [address] 09/20/2024 8:30 AM EDT Nurse Only Hematology/Oncology [facility] [place] [address] [place] [address] [place], Nurse Hem Onc Scenery [address] [place], [place] [address] 09/24/2024 7:30 AM EDT Laboratory Laboratory [facility] [place] [address] [place], [place] [address] [place], Lab Scenery [address] [place], [place] [address] 09/24/2024 8:30 AM EDT Nurse Only Hematology/Oncology [facility] [place] [address] [place] [phone] [place], Nurse Hem Onc Scenery [address] [place] [address] 09/25/2024 8:45 AM EDT Hem/Onc Treatment Hematology/Oncology Treatment, [place] [address] [place], [place] [phone] [place], Chair 3 Hem Onc Scenery [address] [place] [address] 09/26/2024 12:20 PM EDT Office Visit [address] [phone] Sam Quiroz PA-C [address] [place] [address] 10/03/2024 9:30 AM EDT Office Visit Hematology/Oncology [facility] [address] [place] [phone] Azael Mendoza MD 200 [facility] [place] [address] 10/05/2024 2:30 PM EDT Office Visit Pharmacy [facility] [address] [place] [address] Pharmacist, [facility] [address] [place] [address] 11/02/2024 2:00 PM EDT Office Visit Family Practice [facility] [address] [place] [address] Sam Quiroz PA-C [address] [place], [place] [phone] 11/06/2024 9:00 AM EDT Pharmacy Pharmacy Hematology Oncology [facility] [address] [place] [address] Gm, [facility] Hem/Onc [address] [place] [address] 01/25/2025 8:30 AM EDT Office Visit Cardiology, [facility] [address] [place] [phone] Mora Richter PA-C [address] [place] [address] [place] [address] Pending Results Name Type Priority Associated Diagnoses Date /Time CBC WITH WBC DIFFERENTIAL Lab STAT MDS (myelodysplastic syndrome) ([facility]) 09/13/2024 7:52 AM EDT CBC Lab STAT MDS (myelodysplastic syndrome) ([facility]) 09/13/2024 7:52 AM EDT DIFFERENTIAL, AUTOMATED Lab STAT MDS (myelodysplastic syndrome) ([facility]) 09/13/2024 7:52 AM EDT Scheduled Procedures Name Priority Associated Diagnoses Date/Ti [...] 02/06/2024, Additional history exists GFR 03/15/2025 09/13/2024, 042 05/2024, 09/03/2024, Additional history exists Albumin/Creatinine Ratio 08/09/2025 025, 11/11/2022, 07/27/2021, Additional history exists CKD PHOS USE SMARTSET 40771 09/03/202508/21, 07/04/2023, 01/29/2022, Additional history exists CKD HGB USE SMARTSET 97794 09/10/202509/10, 09/10/2024, 09/06/2024, Additional history exists Hepatitis [...] this encounter Medical Devices Implanted Type Area Dipper Fish Device Identifier Shelf Expiration Date Model / Serial / Lot Lens Intraoc 22.0 - [id number] - [id number] Implanted:Qty : 1 on 04/03/2019 by Dylan Byrd MD at OR [facility] Left: Eye BAUSCH 11/20/2023 [id number] / [id number] / Lens Intraoc 21.5 - [id number] - [id number] Implanted:Qty : 1 on 04/12/2019 by Dylan Bryd MD at OR [facility] Right: Eye BAUSCH 12/21/2023 [id number] / [id number] / [id number] Port Implant W/8f Poly Cath - [id number] Implanted:Qty : 1 on 01/25/2023 by Leon Camacho DO at OR [facility] Right: Chest CR BARD : PERIPHERAL VASCULAR [id number] 01/21/2024 [id number] / [id number] documented as of this encounter Procedures Procedure Name Priority Date/Time Associated Diagnosis Comments COMPREHENSIVE METABOLIC PANEL STAT 09/13/2024 7:52 AM EDT MDS (myelodysplastic syndrome) (HCC) documented in this encounter Results * (ABNORMAL) COMPREHENSIVE METABOLIC PANEL (09/13/2024 7:52 AM EDT) BUN 22(H) 6 - 20 mg/dL 09/13/2024 8:16 AM EDT [facility] [place] [facility]-02 CREATININE 1.5(H) 0.6 - 1.2 mg/dL 09/13/2024 8:16 AM EDT [facility] 56-02 EGFR 48(L) >=60 mL/min 09/13/2024 8:16 AM EDT [facility] 56-02 Comment:eGFR is calculated b ased on the CKD-EPI 2020 equation. SODIUM 140 135 - 146 mmol/L 09/13/2024 8:16 AM EDT [facility] 56 POTASSIUM 4.2 3.5 - 5.1 mmol/L 09/13/2024 8:16 AM EDT [facility] 56 CHLORIDE 103 98 - 107 mmol/L 09/13/2024 8:16 AM EDT [facility] 56- CO2 27 22 - 32 mmol/L 09/13/2024 8:16 AM EDT [facility] 56 ANION GAP 10 7 - 15 mmol/L 09/13/2024 8:16 AM EDT [facility] 56 GLUCOSE 112 70 - 120 mg/dL 09/13/2024 8:16 AM EDT [facility] 56 Albumin 3.8 3.8 - 5.0 g/dL 09/13/2024 8:16 AM EDT [facility] 56 AST 23 10 - 50 U/L 09/13/2024 8:16 AM EDT [facility] 56 Alkaline Phosphatase 75 35 - 130 U/L 09/13/2024 8:16 AM EDT [facility] 56 Bilirubin, Total 0.6 <=1.2 mg/dL 09/13/2024 8:16 AM EDT [facility] 56 CALCIUM 9.1 8.4 - 10.2 mg/dL 09/13/2024 8:16 AM EDT [facility] 56 Protein 6.9 6.0 - 8.3 g/dL 09/13/2024 8:16 AM EDT [facility] 56 ALT 27 10 - 50 U/L 09/13/2024 8:16 AM EDT [facility] 56 Blood Venous blood specimen / Unknown Venipuncture / Unknown 09/13/2024 7:52 AM EDT 09/13/2024 7:53 AM EDT us Azael Mendoza MD LAB BLOOD ORDERABLES Final Res ult [facility] [address] [place] [address] documented in this encounter Visit Diagnoses Diagnosis MDS (myelodysplastic syndrome) (HCC) Myelodysplastic syndrome, unspecified documented in this encounter Advance Directives * Full Code (Latest Code Status on File) Date Activated Date Inactivated Comments 02/27/2014 8:29 PM 03/05/2014 6:28 PM This order reflects the patients wishes and were consensually agreed upon. Care Teams Mailroom Personnel Relationship Specialty Start Date End Date Sam Quiroz PA-C [address] [place] [id number] PCP - General Physician Finger Buffs Assembler 06/17/21 documented as of this encounter
--- OUTSIDE RECORDS SUMMARY | 2024-09-15 20:47 | External Medical Summary | Summary of Care ---
Author Name Unknown Organization [facility] Address [address] [place] [address] Phone [phone] Care Team Providers Care Glue Maker Name Role Phone Sam Quiroz PA-C Primary Care Provider [phone] Encounter Details Date Type Department Care Team (Late st Contact Info) Description 09/10/2024 Result Scan Unspecified Department Azael Mendoza MD [address] [place], [place] [phone] <No scans attached> Allergies Active Allergy Reactions Criticality Noted Date Comments Ether Low 05/19/2022 Other reaction(s): VOMITING documented as of this encounter (statuses as of 09/12/2024) Medications albuterol (PROVENTIL HFA) 108 (90 BASE) [...] Active Additional Information Patient taking differently:8 mg [id number] PRN, Nausea, Reported on 05/04/2024 Budesonide-Formot finesse [...] 5 8:15 AM EDT 025 Active OneTouch Delica Lancets 33GIndications:Ty pe 2 diabetes mellitus with hemoglobin A1c goal of less than or equal to 9.0% ([facility]),Type 2 diabetes mellitus with stage 3b chronic kidney disease, without long-term current use of insulin ([facility]),Other vitamin B12 deficiency anemias Use to test blood sugar once daily and as needed for hypoglycemic symptoms E11.9 100 Each 11 Active OneTouch Delica Lancing DevIndications:Ty pe 2 diabetes mellitus with hemoglobin A1c goal of less than or equal to 9.0% ([facility]),Type 2 diabetes mellitus with stage 3b chronic kidney disease, without long-term current use of insulin ([facility]),Other vitamin B12 deficiency anemias Use to test blood sugar once daily and as needed for hypoglycemic symptoms E11.9 1 Each 025 Active Appnique Verio Flex System w/Device KitIndications:Ty pe 2 diabetes mellitus with hemoglobin A1c goal of less than or equal to 9.0% ([facility]),Type 2 diabetes mellitus with stage 3b chronic kidney disease, without long-term current use of insulin ([facility]),Other vitamin B12 deficiency anemias Use to test blood sugar once daily and as needed for hypoglycemic symptoms E11.9 1 Kit 025 Active [employer] In Vitro Strip (Glucose Blood)Indications :Type 2 diabetes mellitus with hemoglobin A1c goal of less than or equal to 9.0% ([facility]),Type 2 diabetes mellitus with stage 3b chronic kidney disease, without long-term current use of insulin ([facility]),Other vitamin B12 deficiency anemias Use to test blood sugar once daily and as needed for hypoglycemic symptoms E11.9 100 Strip 11 025 Active Folic Acid 1 MG Oral TabletIndications :MDS (myelodysplastic syndrome) ([facility]) TAKE 1 TABLET BY MOUTH EVERY MORNING 90 Tablet 3 025 Active Jardiance 25 MG Oral Tablet (Empagliflozin) Take 1 Tablet by mouth in the morning. 90 Tablet 025 Active metFORMIN HCl ER 500 MG Oral Tablet Extended Release 24 Hour (Glucophage XR)Indications:Ty pe 2 diabetes mellitus with hemoglobin A1c goal of less than or equal to 9.0% ([facility]) Take 1 Tablet by mouth in the morning and 1 Tablet in the evening. 180 Tablet 3 025 Active BD Pen Needle Naomi 2nd Gen 32G X 4 MM (Insulin Pen Needle)Indication s:Type 2 diabetes mellitus with hemoglobin A1c goal of less than or equal to 9.0% ([facility]) Use to inject insulin once daily E11.9 100 Each 3 025 Active Insulin Glargine Solostar 100 UNIT/ML Subcutaneous Solution Pen-injectorIndic ations:Type 2 diabetes mellitus with hemoglobin A1c goal of less than or equal to 9.0% ([facility]) Inject 15 Units under the [...] as of this encounter (statuses as of 09/12/2024) Active Problems Problem Noted Date Diagnosed Date [...] as of this encounter (statuses as of 09/12/2024) Resolved Problems Problem Noted Date Diagnosed Date [...] as of this encounter (statuses as of 09/12/2024) Immunizations Name Administration Dates Next Due COVID-19 mRNA, LNP-s, No Pre serve, 2-Dose Series (CardioDx) 07/18/2020 COVID-19, MRNA-LNP, PF, 30 M CG/0.3 mL, 12 YRS AND ABOVE, IM (idemama-Comirnaty) 03/28/2024 Covid-19, Mrna, Lnp-s, Pf, B ivalent, [...] No 01/03/2024 Does the household have a [facility] source of income? (Household - for ages [...] Author No 04/16/2014 11:00 AM Lilly Fenton ARTEMIO * Are you blind or do you have serious difficulty seeing, even when wearing glasses? Answer Date of Assessment Author No 04/16/2014 11:00 AM EST [place], M argaret A, ARTEMIO * Do you have serious difficulty walking or climbing stairs? (5 years old or older) Answer Date of Assessment Author No 04/16/2014 11:00 AM Lilly Fenton vanessat A, ARTEMIO * Do you have difficulty dressing or bathing? (5 years old or older) Answer Date of Assessment Author No 04/16/2014 11:00 AM Lilly Fenton argaret A, ARTEMIO * Because of a physical, mental, or emotional condition, do you have difficulty doing errands alone such as visiting a doctor’s office or shopping? (15 years old or older) Answer Date of Assessment Author No 04/16/2014 11:00 AM Lilly Fenton argaret A, ARTEMIO documented as of this encounter Mental Status * Because of a physical, mental, or emotional condition, do you have serious difficulty concentrating, remembering, or making decisions? (5 years old or older) Answer Entry Date Author No 04/16/2014 11:00 AM Lilly [place] A, ARTEMIO documented in this encounter Plan of Treatment Upcoming Encounters Date Type Department Care Team (Late st Contact Info) Description 09/13/2024 7:30 AM EDT Laboratory Laboratory [facility] [place] [address] [place] [phone] [place] Lab [facility] [address] [place] [address] 09/13/2024 8:00 AM EDT Nurse Only Hematology/Oncology [facility] [place] [address] [place] [address] [place], Nurse Hem Onc Scene [address] [place] [address] [address] 09/17/2024 7:50 AM EDT Laboratory Laboratory [facility] [place] [address] [address] [place], Lab [facility] [address] [place] [address] [address] 09/17/2024 8:30 AM EDT Nurse Only Hematology/Oncology [facility] [place] [address] [place] [address] [place], Nurse Hem Onc Scenery [address] [place], [place] [address] 09/18/2024 2:00 PM EDT Office Visit Podiatry [facility], [address] [place] [phone] Umesh Larson, DPM [address] [place] [address] 09/20/2024 7:30 AM EDT Laboratory Laboratory [facility] [place] [address] [place], [place] [address] [place], Lab Scenery [address] [place], [place] [address] 09/20/2024 8:30 AM EDT Nurse Only Hematology/Oncology [place] [address] [place], [place] [address] [place], Nurse Hem Onc Scenery [address] [place] [address] 09/24/2024 7:30 AM EDT Laboratory Laboratory [place] [address] [place] [address] [place], Lab Scenery [address] [place], [place] [address] 09/24/2024 8:30 AM EDT Nurse Only Hematology/Oncology Sc[place] [address] [place], [place] [address] [place], Nurse Hem Onc Scenery [address] [place], [place] [address] 09/25/2024 8:45 AM EDT Hem/Onc Treatment Hematology/Oncology [place] [address] [place], [place] [address] [place], Chair 3 Hem Onc Scenery [address] [place], [place] [address] 09/26/2024 12:20 PM EDT Office Visit [facility] [address] [place] [address] Sam Quiroz PA-C [address] [place] [address] 10/03/2024 9:30 AM EDT Office Visit Hematology/Oncology [facility] [address] [facility] [place] [phone] [facility] [address] [facility] [address] 10/05/2024 2:30 PM EDT Office Visit Pharmacy [address] [phone] [place] [address], [address] [address] 11/02/2024 2:00 PM EDT Office Visit [address] [phone] Sam Quiroz PA-C [address] [place] [address] 11/06/2024 9:00 AM EDT Pharmacy Pharmacy Hematology Oncology [facility] [address] [place] [address] [facility] Hem/Onc [address] [place] [address] 01/25/2025 8:30 AM EDT Office Visit Cardiology, [facility] [address] [place] [phone] Mora Richter PA-C [address] [place], [place] [address] [id number] Scheduled Procedures Name Priority Associated Diagnoses Date/Ti [...] Additional history exists CKD PHOS USE SMARTSET 27486 09/03/202508/21, 07/04/2023, 01/29/2022, Additional history exists CKD HGB USE SMARTSET 44877 09/10/202509/10, 09/10/2024, 09/06/2024, Additional history exists Hepatitis [...] this encounter Medical Devices Implanted Type Area Clin Nurse Device Identifier Shelf Expiration Date Model / Serial / Lot Lens Intraoc 22.0 - [id number] - [id number] Implanted:Qty : 1 on 04/03/2019 by Dylan Byrd MD at OR [facility] Left: Eye BAUSCH 11/20/2023 [id number] / [id number] / Lens Intraoc 21.5 - [id number] - [id number] Implanted:Qty : 1 on 04/12/2019 by Dylan Byrd MD at OR [facility] Right: Eye BAUSCH 12/21/2023 [id number] / [id number] / [id number] Port Implant W/8f Poly Cath - [id number] Implanted:Qty : 1 on 01/25/2023 by Leon Camacho DO at OR [facility] Right: Chest CR BARD : PERIPHERAL VASCULAR [id number] 01/21/2024 [id number] / [id number] documented as of this encounter Procedures Procedure Name Priority Date/Time Associated Diagnosis Comments OUTSIDE LAB RESULTS 09/10/2024 documented in this encounter Results * OUTSIDE LAB RESULTS (09/10/2024) 09/10/2024 Azael Mendoza MD LABORATORY Final Result documented in this encounter Advance Directives * Full Code (Latest Code Status on File) Date Activated Date Inactivated Comments 02/27/2014 8:29 PM 03/05/2014 6:28 PM This order reflects the patients wishes and were consensually agreed upon. Care Teams Glue Maker Relationship Specialty Start Date End Date Sam Quiroz PA-C [address] [place] [address] [place] [address] PCP - General Physician Quarter Folder 06/17/21 documented as of this encounter
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
--- OUTSIDE RECORDS SUMMARY | 2024-09-15 20:48 | External Medical Summary | Summary of Care ---
Author Name Unknown Organization [facility] Address [address] [place] [address] Phone [phone] Care Team Providers Care Teen Counselor Name Role Phone Sam Quiroz PA-C Primary Care Provider [phone] Reason for Visit * Reason Comments Nurse Documentation Lab review Encounter Details Date Type Department Care Team (Late st Contact Info) Description 09/10/2024 8:30 AM EDT Nurse Only Hematology/Oncology [facility] [place] [address] [place] [address] [place], Nurse Hem Onc Scene [address] [place] [address] Nurse Documentation (Lab review) Allergies Active Allergy Reactions Criticality Noted Date Comments Ether Low 05/19/2022 Other reaction(s): VOMITING documented as of this encounter (statuses as of 09/10/2024) Medications albuterol (PROVENTIL HFA) 108 (90 BASE) [...] Active Additional Information Patient taking differently:8 mg [id number] PRN, Nausea, Reported on 05/04/2024 Budesonide-Formot finesse [...] symptoms E11.9 100 Each 11 025 Active [employer] Delica Lancing DevIndications:Ty pe 2 diabetes mellitus with hemoglobin A1c goal of less than or equal to 9.0% ([facility]),Type 2 diabetes mellitus with stage 3b chronic kidney disease, without long-term current use of insulin ([facility]),Other vitamin B12 deficiency anemias Use to test blood sugar once daily and as needed for hypoglycemic symptoms E11.9 1 Each 025 Active [employer] Verio Flex System w/Device KitIndications:Ty pe 2 diabetes mellitus with hemoglobin A1c goal of less than or equal to 9.0% ([facility]),Type 2 diabetes mellitus with stage 3b chronic kidney disease, without long-term current use of insulin ([facility]),Other vitamin B12 deficiency anemias Use to test blood sugar once daily and as needed for hypoglycemic symptoms E11.9 1 Kit 025 Active [employer] In Vitro Strip (Glucose Blood)Indications :Type 2 diabetes mellitus with hemoglobin A1c goal of less than or equal to 9.0% ([facility]),Type 2 diabetes mellitus with stage 3b chronic kidney disease, without long-term current use of insulin ([facility]),Other vitamin B12 deficiency anemias Use to test blood sugar once daily and as needed for hypoglycemic symptoms E11.9 100 Strip 11 025 Active Folic Acid 1 MG Oral TabletIndications :MDS (myelodysplastic syndrome) ([facility]) TAKE 1 TABLET BY MOUTH EVERY MORNING 90 Tablet 3 025 Active Jardiance 25 MG Oral Tablet (Empagliflozin) Take 1 Tablet by mouth in the morning. 90 Tablet 025 Active metFORMIN HCl ER 500 MG Oral Tablet Extended Release 24 Hour (Glucophage XR)Indications:Ty pe 2 diabetes mellitus with hemoglobin A1c goal of less than or equal to 9.0% ([facility]) Take 1 Tablet by mouth in the morning and 1 Tablet in the evening. 180 Tablet 3 025 Active BD Pen Needle Naomi 2nd Gen 32G X 4 MM (Insulin Pen Needle)Indication s:Type 2 diabetes mellitus with hemoglobin A1c goal of less than or equal to 9.0% ([facility]) Use to inject insulin once daily E11.9 [...] IN THE MORNING EVERY DAY 025 Active documented as of this encounter (statuses as of 09/10/2024) Active Problems Problem Noted Date Diagnosed Date [...] as of this encounter (statuses as of 09/10/2024) Resolved Problems Problem Noted Date Diagnosed Date [...] as of this encounter (statuses as of 09/10/2024) Immunizations Name Administration Dates Next Due COVID-19 mRNA, LNP-s, No Pre serve, 2-Dose Series (Sykio) 07/18/2020 COVID-19, MRNA-LNP, PF, 30 M CG/0.3 [...] No 01/03/2024 Does the household have a [facility] source [facility] income? (Household - [...] Assessment Author No 04/16/2014 11:00 AM EST Lilly Murphy, ARTEMIO * Are you blind or do you have serious difficulty seeing, even when wearing glasses? Answer Date of Assessment Author No 04/16/2014 11:00 AM Lilly [place] A, ARTEMIO * Do you have serious difficulty walking or climbing stairs? (5 years old or older) Answer Date of Assessment Author No 04/16/2014 11:00 AM Lilly Fent[place] A, ATREMIO * Do you have difficulty dressing or [...] Author No 04/16/2014 11:00 AM Lilly Fentont Em, ARTEMIO documented as of this encounter Mental Status * Because of a physical, mental, or emotional condition, do you have serious difficulty concentrating, remembering, or making decisions? (5 years old or older) Answer Entry Date Author No 04/16/2014 11:00 AM Lilly Fentonaddie Strickland, ARTEMIO documented in this encounter Progress Notes * Molly Bolden LPN - 09/10/2024 8:24 AM EDT Reviewed lab results with patient: Hgb: 7.9 Patient voices understanding. He is requesting blood transfusion due to complaint of being "tired". New consent obtained today. Patient to receive 1 unit prbc. Called [facility] blood bank. Spoke with Miranda. Spoke with Lisa in [place]. Spoke with Lina in . Called [facility] central scheduling. Patient scheduled for today at 11:00am. Patient verbalized understanding of appt time. Faxed order to [facility]/ blood bank. documented in this encounter Plan of Treatment Upcoming Encounters Date Type Department Care Team (Late st Contact Info) Description 09/11/2024 9:00 AM EDT Pharmacy Pharmacy Hematology Oncology [place] [address] [place] [address] [facility], [facility] Hem/[place] [address] 09/13/2024 7:30 AM EDT [facility] [place] [address] [place], [place] [phone] [place], Lab Scenery [address] [place] [address] 09/13/2024 8:00 AM EDT Nurse Only Hematology/Oncology Scenery [place] [address] [place] [address] [place], Nurse Hem Onc Scenery [address] [place] [address] 09/17/2024 7:50 AM EDT Laboratory Laboratory [facility] [place] [address] [place], [place] [address] [place], Lab Scenery [address] [facility] [place], [place] [address] 09/17/2024 8:30 AM EDT Nurse Only [facility]ematology[facility] [place] [address] [place], [place] [address] [place], Nurse Hem Onc Scenery [address] [place], [place] [address] 09/18/2024 2:00 PM EDT Office Visit Podiatry [address] [place] [address] Umesh Larson, [facility] [address] [place] [address] 09/20/2024 7:30 AM EDT Laboratory Laboratory [facility] [place] [address] [place], [place] [address] [place], Lab Scenery [address] [facility] [place] [address] 09/20/2024 8:30 AM EDT Nurse Only Hematology/Oncology [facility] [place] [address] [place] [address] [place], Nurse Hem Onc Scenery [address] [place], [place] [address] 09/24/2024 7:30 AM EDT Laboratory Laboratory [facility] [place] [address] [place], [place] [address] [place], Lab Scenery [address] [place], [place] [address] 09/24/2024 8:30 AM EDT Nurse Only Hematology/Oncology [facility] [place] [address] [place], [place] [phone] [place], Nurse Hem Onc Scenery [address] [place], [place] [address] 09/25/2024 8:45 AM EDT Hem/Onc Treatment Hematology/Oncology Treatment, [place] [address] [place], [place] [phone] [place], Chair 3 Hem Onc Scenery [address] [place], [place] [address] 09/26/2024 12:20 PM EDT Office Visit [address] [address] Sam Quiroz PA-C [address] [place] [address] 10/03/2024 9:30 AM EDT Office Visit [facility]ology[facility] [place] [address] [place], [place] [phone] Azael Mendoza MD [address] [place], [place] [address] 10/05/2024 2:30 PM EDT Office Visit Pharmacy [address] [address] Pharmacist2, [address] [place] [address] 11/02/2024 2:00 PM EDT Office Visit [facility] [address] [place] [address] Sam Quiroz PA-C [address] [place] [address] 01/25/2025 8:30 AM EDT Office Visit Cardiology, [facility] [address] [place] [address] Mora Richter PA-C [address] [place] [address] [place] [id number] Scheduled Orders Name Type Priority Associated Diagnoses Orde r Schedule TYPE AND SCREEN Lab Routine MDS (myelodysplastic syndrome) (HCC) Expected: 09/10/2024 (Approximate), Expires: 10/10/2024 Scheduled Procedures Name Priority Associated Diagnoses Date/Ti [...] Additional history exists CKD PHOS USE SMARTSET 03584 09/03/202508/21, 07/04/2023, 01/29/2022, Additional history exists CKD HGB USE SMARTSET 00545 09/10/202509/10, 09/10/2024, 09/06/2024, Additional history exists Hepatitis [...] this encounter Medical Devices Implanted Type Area Mining Teacher Device Identifier Shelf Expiration Date Model / Serial / Lot Lens Intraoc 22.0 - [id number] - [id number] Implanted:Qty : 1 on 04/03/2019 by Dylan Byrd MD at OR [facility] Left: Eye BAUSCH 11/20/2023 [id number] / [id number] / Lens Intraoc 21.5 - [id number] - [id number] Implanted:Qty : 1 on 04/12/2019 by Dylan Byrd MD at OR [facility] Right: Eye BAUSCH 12/21/2023 [id number] / [id number] / [id number] Port Implant W/8f Poly Cath - [id number] Implanted:Qty : 1 on 01/25/2023 by Leon Camacho, at OR [facility] Right: Chest CR BARD : PERIPHERAL VASCULAR [id number] 01/21/2024 [id number] / / [id number] documented as of this encounter Visit Diagnoses Diagnosis MDS (myelodysplastic syndrome) (HCC)- Primary Myelodysplastic syndrome, unspecified documented in this encounter Advance Directives * Full Code (Latest Code Status on File) Date Activated Date Inactivated Comments 02/27/2014 8:29 PM 03/05/2014 6:28 PM This order reflects the patients wishes and were consensually agreed upon. Care Teams Teen Counselor Relationship Specialty Start Date End Date Sam Quiroz PA-C [address] [place], [place] [address] [id number] PCP - General Physician Wire Mesh Filter Fabricator 06/17/21 documented as of this encounter
--- OUTSIDE RECORDS SUMMARY | 2024-09-15 20:48 | External Medical Summary | Summary of Care ---
Author Name Unknown Organization [facility] Address [address] [place] [address] Phone [phone] Care Team Providers Care Development Vice President Name Role Phone Sam Quiroz PA-C Primary Care Provider [phone] Reason for Visit * Reason Comments Outpatient Testing Encounter Details Date Type Department Care Team ([facility] st Contact Info) Description 09/10/2024 8:00 AM EDT Laboratory Laboratory [facility] [address] [place] [phone] [place], Lab Scenery [address] [place] [address] MDS (myelodysplastic syndrome) (HCC); Iron overload, transfusional Allergies Active Allergy Reactions Criticality Noted Date [...] Active Additional Information Patient taking differently:8 mg [id number] PRN, Nausea, Reported on 05/04/2024 Budesonide-Formot finesse [...] symptoms E11.9 100 Each 11 025 Active [employer] Delica Lancing DevIndications:Ty pe 2 diabetes mellitus with hemoglobin A1c goal of less than or equal to 9.0% ([facility]),Type 2 diabetes mellitus with stage 3b chronic kidney disease, without long-term current use of insulin ([facility]),Other vitamin B12 deficiency anemias Use to test blood sugar once daily and as needed for hypoglycemic symptoms E11.9 1 Each 025 Active [employer] Verio Flex System w/Device KitIndications:Ty pe 2 diabetes mellitus with hemoglobin A1c goal of less than or equal to 9.0% ([facility]),Type 2 diabetes mellitus with stage 3b chronic kidney disease, without long-term current use of insulin ([facility]),Other vitamin B12 deficiency anemias Use to test blood sugar once daily and as needed for hypoglycemic symptoms E11.9 1 Kit 025 Active [employer] In Vitro Strip (Glucose Blood)Indications :Type 2 diabetes mellitus with hemoglobin A1c goal of less than or equal to 9.0% ([facility]),Type 2 diabetes mellitus with stage 3b chronic kidney disease, without long-term current use of insulin ([facility]),Other vitamin B12 deficiency anemias Use to test blood sugar once daily and as needed for hypoglycemic symptoms E11.9 100 Strip 11 025 Active Folic Acid 1 MG Oral TabletIndications :MDS (myelodysplastic syndrome) ([facility]) TAKE 1 TABLET BY MOUTH EVERY MORNING 90 Tablet 3 025 Active Jardiance 25 MG Oral Tablet (Empagliflozin) Take 1 Tablet by mouth in the morning. 90 Tablet 025 Active metFORMIN HCl ER 500 MG Oral Tablet Extended Release 24 Hour (Glucophage XR)Indications:Ty pe 2 diabetes mellitus with hemoglobin A1c goal of less than or equal to 9.0% ([facility]) Take 1 Tablet by mouth in the morning and 1 Tablet in the evening. 180 Tablet 3 025 Active BD Pen Needle Naomi 2nd Gen 32G X 4 MM (Insulin Pen Needle)Indication s:Type 2 diabetes mellitus with hemoglobin A1c goal of less than or equal to 9.0% (HCC) Use to inject insulin once daily E11.9 [...] mRNA, LNP-s, No Pre serve, 2-Dose Series (Pfizer) 07/18/2020 COVID-19, MRNA-LNP, PF, 30 M CG/0.3 [...] No 01/03/2024 Does the household have a [facility] source of income? (Household - for ages [...] Assessment Author No 04/16/2014 11:00 AM ALLEN MurphyiLlly A, ARTEMIO * Do you have serious difficulty walking or climbing stairs? (5 years old or older) Answer Date of Assessment Author No 04/16/2014 11:00 AM ALLEN JeffreyLillyt A, ARTEMIO * Do you have difficulty [...] Date Author No 04/16/2014 11:00 AM Lilly Fenton ARTEMIO documented in this encounter Plan of Treatment Upcoming Encounters Date Type Department Care Team (Late st Contact Info) Description 09/11/2024 9:00 AM EDT Pharmacy Pharmacy Hematology Oncology [facility] [address] [place] [address] [facility], [facility] Hem/Onc [address] [place] [address] 09/13/2024 7:30 AM EDT Laboratory Laboratory [facility] [place] [address] [place] [address] [place], Lab Scenery [address] [facility] [place] [address] 09/13/2024 8:00 AM EDT Nurse Only Hematology/Oncology [facility] [place] [address] [place] [address] [place], Nurse Hem Onc Scenery [address] [place] [address] 09/17/2024 7:50 AM EDT Laboratory Laboratory Scenery [place] [address] [place], [place] [address] [place], Lab Scenery [address] [facility] [place] [address] 09/17/2024 8:30 AM EDT Nurse Only Hematology/Oncology Scenery [place] [address] [place], [place] [address] [place], Nurse Hem Onc Scenery [address] [place], [place] [address] 09/18/2024 2:00 PM EDT Office Visit Podiatry [address] [place] [phone] Umesh Larson, [facility] [address] [place] [address] 09/20/2024 7:30 AM EDT Laboratory Laboratory Scenery [place] [address] [place], [place] [address] [place], Lab Scenery [address] [facility] [place], [place] [address] 09/20/2024 8:30 AM EDT Nurse Only Hematology/Oncology Scenery [place] [address] [place], [place] [address] [place], Nurse Hem Onc Scenery [address] [place] [address] 09/24/2024 7:30 AM EDT Laboratory Laboratory [facility] [place] [address] [place] [address] [place], Lab Scenery [address] [facility] [place] [address] 09/24/2024 8:30 AM EDT Nurse Only Hematology/Oncology Scenery [place] [address] [place], [place] [address] [place], Nurse Hem Onc Scenery [address] [facility] [place] [address] 09/25/2024 8:45 AM EDT Hem/Onc Treatment Hematology/Oncology Treatment, [place] [address] [place] [phone] [place], Chair 3 Hem Onc Scene [address] [facility] [place] [address] 09/26/2024 12:20 PM EDT Office Visit [facility] [address] [place] [address] Sam Quiroz PA-C [address] [place] [address] 10/03/2024 9:30 AM EDT Office Visit Hematology/Oncology [facility] [place] [address] [place] [address] Azael Mendoza MD [address] [place] [address] 10/05/2024 2:30 PM EDT Office Visit Pharmacy [facility] [address] [place] [address] Pharmacist2, [facility] [place] [address] [place] [address] 11/02/2024 2:00 PM EDT Office Visit [facility] [address] [place] [address] Sam Quiroz PA-C [address] [place] [address] 01/25/2025 8:30 AM EDT Office Visit Cardiology, [facility] [address] [place] [phone] Mora Richter PA-C [address] [place] [address] [place] [address] Pending Results Name Type Priority Associated Diagnoses Date /Time FERRITIN Lab Routine Iron overload, transfusional 09/10/2024 7:44 AM EDT Scheduled Procedures Name Priority Associated [...] 08/06/2024, 04/22, 02/06/2024, Additional history exists GFR 03/05/2025 09/10/2024, 08/21, 08/27/2024, Additional history exists Albumin/Creatinine Ratio 08/09/2025 025, 11/11/2022, 07/27/2021, Additional history exists CKD PHOS USE SMARTSET 79146 09/03/202508/21, 07/04/2023, 01/29/2022, Additional history exists CKD HGB USE SMARTSET 79097 09/10/202509/10, 09/10/2024, 09/06/2024, Additional history exists Hepatitis [...] this encounter Medical Devices Implanted Type Area Vice President Investor Relations Device Identifier Shelf Expiration Date Model / Serial / Lot Lens Intraoc 22.0 - [id number] - [id number] Implanted:Qty : 1 on 04/03/2019 by Dylan Byrd MD at OR [facility] Left: Eye BAUSCH 11/20/2023 [id number] / [id number] / Lens Intraoc 21.5 - [id number] - [id number] Implanted:Qty : 1 on 04/12/2019 by Dylan Byrd MD at OR [facility] Right: Eye BAUSCH 12/21/2023 [id number] / [id number] / [id number] Port Implant W/8f Poly Cath - [id number] Implanted:Qty : 1 on 01/25/2023 by Leon Camacho DO at OR [facility] Right: Chest CR BARD : PERIPHERAL VASCULAR [id number] 01/21/2024 [id number] / [id number] documented as of this encounter Procedures Procedure Name Priority Date/Time Associated Diagnosis Comments DIFFERENTIAL, AUTOMATED STAT 09/10/2024 7:44 AM EDT MDS (myelodysplastic syndrome) (HCC) COMPREHENSIVE METABOLIC PANEL STAT 09/10/2024 7:44 AM EDT MDS (myelodysplastic syndrome) (HCC) CBC STAT 09/10/2024 7:44 AM EDT MDS (myelodysplastic syndrome) (HCC) CBC STAT 09/10/2024 7:44 AM EDT MDS (myelodysplastic syndrome) (HCC) DIFFERENTIAL, TECHNOLOGIST REVIEW Routine 09/10/2024 7:44 AM EDT MDS (myelodysplastic syndrome) (HCC) documented in this encounter Results * DIFFERENTIAL, TECHNOLOGIST REVIEW (09/10/2024 7:44 AM EDT) Pathologist [facility] NRBCs 09/10/2024 9:02 AM EDT [facility] 56-02 Blood Venous blood specimen / Unknown Venipuncture / Unknown 09/10/2024 7:44 AM EDT 09/10/2024 7:45 AM EDT us Azael Mendoza MD LAB BLOOD ORDERABLES Final Res ult [facility] 56- [address] [place] [address] * (ABNORMAL) DIFFERENTIAL, AUTOMATED (09/10/2024 7:44 AM EDT) Pathologist [facility] WBC 4.19 4.00 - 10.80 K/uL 09/10/2024 9:02 AM EDT [facility] 56-02 Neutrophils % 54.9 40.0 - 75.0 % 09/10/2024 9:02 AM EDT [facility] 56-02 Lymphocytes % 18.6 18.0 - 42.0 % 09/10/2024 9:02 AM EDT [facility] 56-02 Monocytes % 10.3 1.0 - 11.0 % 09/10/2024 9:02 AM EDT [facility] 56-02 Eosinophils % 15.5(H) 0.0 - 6.0 % 09/10/2024 9:02 AM EDT [facility] 56-02 Basophils % 0.7 0.0 - 2.0 % 09/10/2024 9:02 AM EDT [facility] 56-02 Absolute Neutrophils 2.30 1.80 - 7.70 K/uL 09/10/2024 9:02 AM EDT [facility] 56-02 Absolute Lymphocytes 0.78(L) 1.00 - 4.80 K/ul 09/10/2024 9:02 AM EDT [facility] 56 Absolute Monocytes 0.43 0.00 - 1.10 K/uL 09/10/2024 9:02 AM EDT [facility] Absolute Eosinophils 0.65 0.00 - 0.70 K/uL 09/10/2024 9:02 AM EDT [facility] 56 Absolute Basophils 0.03 0.00 - 0.20 K/uL 09/10/2024 9:02 AM EDT [facility] 56 Blood Venous blood specimen / Unknown Venipuncture / Unknown 09/10/2024 7:44 AM EDT 09/10/2024 7:45 AM EDT us Azael Mendoza MD LAB BLOOD ORDERABLES Final Res ult [facility] [address] [place] [address] * (ABNORMAL) CBC (09/10/2024 7:44 AM EDT) WBC 4.19 4.00 - 10.80 K/uL 09/10/2024 9:02 AM T [facility] RBC 2.64 4.50 - 5.25 M/uL 09/10/2024 9:02 AM T [facility] HGB 7.9(L) 14.0 - 16.8 g/dL 09/10/2024 9:02 AM EDT [facility] HCT 23.6(L) 40.0 - 48.4 % 09/10/2024 9:02 AM T [facility] MCV 89.4 82.0 - 99.5 fL 09/10/2024 9:02 AM EDT [facility] MCH 29.9 27.0 - 34.0 pg 09/10/2024 9:02 AM T [facility] MCHC 33.5 32.0 - 36.0 g/dL 09/10/2024 9:02 AM EDT [facility] 56 RDW 13.3 11.5 - 15.5 % 09/10/2024 9:02 AM EDT [facility] PLT 58(L) 140 - 400 K/uL 09/10/2024 9:02 AM EDT [facility] MPV 10.2 6.6 - 11.1 fL 09/10/2024 9:02 AM EDT [facility] Blood Venous blood specimen / Unknown Venipuncture / Unknown 09/10/2024 7:44 AM EDT 09/10/2024 7:45 AM EDT us Azael Mendoza MD LAB BLOOD ORDERABLES Final Res ult [facility] [address] [place], [place] [phone] * (ABNORMAL) COMPREHENSIVE METABOLIC PANEL (09/10/2024 7:44 AM EDT) BUN 19 6 - 20 mg/dL 09/10/2024 9:16 AM T [facility] CREATININE 1.4(H) 0.6 - 1.2 mg/dL 09/10/2024 9:16 AM T [facility] EGFR 53(L) >=60 mL/min 09/10/2024 9:16 AM T [facility] Comment:eGFR is calculated b ased on the CKD-EPI 2020 equation. SODIUM 141 135 - 146 mmol/L 09/10/2024 9:16 AM T [facility] POTASSIUM 4.5 3.5 - 5.1 mmol/L 09/10/2024 9:16 AM EDT [facility] CHLORIDE 104 98 - 107 mmol/L 09/10/2024 9:16 AM T [facility] 56 CO2 26 22 - 32 mmol/L 09/10/2024 9:16 AM EDT [facility] 56 ANION GAP 11 7 - 15 mmol/L 09/10/2024 9:16 AM T [facility] GLUCOSE 147(H) 70 - 120 mg/dL 09/10/2024 9:16 AM T [facility] Albumin 3.7(L) 3.8 - 5.0 g/dL 09/10/2024 9:16 AM EDT [facility] 56- AST 23 10 - 50 U/L 09/10/2024 9:16 AM EDT [facility] 56- Alkaline Phosphatase 72 35 - 130 U/L 09/10/2024 9:16 AM EDT [facility] 56- Bilirubin, Total 0.5 <=1.2 mg/dL 09/10/2024 9:16 AM EDT [place] [address]- CALCIUM 9.1 8.4 - 10.2 mg/dL 09/10/2024 9:16 AM EDT [place] [address]- Protein 6.6 6.0 - 8.3 g/dL 09/10/2024 9:16 AM EDT [address] ALT 26 10 - 50 U/L 09/10/2024 9:16 AM EDT [address] Blood Blood sample taken from central line / Unknown Central Line / Unknown 09/10/2024 7:44 AM EDT 09/10/2024 7:45 AM EDT Narrative [facility] 56- - 09/10/2024 9:16 AM EDT us Azael Mendoza MD LAB BLOOD ORDERABLES Final Res ult [facility] [address] [place] [address] documented in this encounter Visit Diagnoses Diagnosis MDS (myelodysplastic syndrome) (HCC) Myelodysplastic syndrome, unspecified Iron overload, 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 Care Teams Development Vice President Relationship Specialty Start Date End Date Sam Quiroz PA-C [address] [place] [phone] PCP - General Physician Gas Cutting Machine Operator 06/17/21 documented as of this encounter
--- OUTSIDE RECORDS SUMMARY | 2024-09-15 20:48 | External Medical Summary ---
Author Name Unknown Address Unknown Organization K01:[facility] [address] [place] [address] Laboratory Report Ordering Provider Test Date Status KAREN BURGOSEL 09/10/2024 07:44:52 Final Observation Date Value Abnormality Reference (Units ) Status Ferritin 09/10/2024 07:44:52 [id number] Above high normal 30 -400 (ng/mL) Final Performing Location [facility] [address] [place] [address]
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
[2024-09-15 22:00] LABS: Albumin Globulin Ratio 1.2 (0.9-2); Albumin Level 3.7 gm/dl (3.4-5.0); BUN Creatinine Ratio 14.6 (10-20); Bilirubin,Total 0.9 mg/dl (0.2-1.0); Calcium 8.6 mg/dl (8.6-10.3); Globulin 3.2 gm/dl (2.5-4.0); Magnesium 1.6 mg/dl (1.7-2.4); Potassium 4.3 mmol/L (3.5-5.1); Total Protein 6.9 gm/dl (6.0-8.3)
[2024-09-15] MEDS: ACETAMINOPHEN 1,000 MG/100 ML VIAL IV STA (22:00)
[2024-09-15] MEDS: SODIUM CHLORIDE 0.9% 500 ML IV ONE (22:00)
[2024-09-15] MEDS: ONDANSETRON INJ 2 MG/ML 2 ML VIAL IV STA (22:00)
[2024-09-15 22:06] LABS: Anisocytosis Present; Basophils # (auto) 0.01 K/uL (0.00-0.20); Basophils % (auto) 0.1 %; Eosinophils # (auto) 0.07 K/uL (0.00-0.50); Hemoglobin 7.6 g/dl (14.0-18.0); Immature Granulocytes # (auto) 0.05 K/uL (0.01-0.20); Immature Granulocytes % (auto) 0.7 %; Lymphocytes # (auto) 0.65 K/uL (1.20-3.40); Mean Corpuscular Hemoglobin 29.2 pg (25.0-34.0); Mean Corpuscular Hgb Conc 34.5 g/dL (32.0-36.0); Mean Corpuscular Volume 84.6 fL (80.0-100.0); Mean Platelet Volume 10.9 fL (9.4-12.4); Monocytes # (auto) 0.69 K/uL (0.11-0.59); Monocytes % (auto) 9.5 %; Neutrophils # (auto) 5.76 K/uL (1.40-6.50); Neutrophils % (auto) 79.7 %; Platelet Count 40 K/uL (130-400); Platelet Estimate Decreased (Normal); RDW Coefficient of Variation 13.2 % (11.5-14.5); RDW Standard Deviation 40.5 fL (36.4-46.3); White Blood Count 7.23 K/ul (4.8-10.8)
[2024-09-15 22:07] LABS: Troponin I High Sensitivity 27.8 pg/ml (0-20)
[2024-09-15] MEDS: MAGNESIUM SULFATE / D5W 1 GM/100 ML BAG IV STA (22:12)
[2024-09-15 22:13] LABS: INR 1.1 (0.9-1.1); Partial Thromboplastin Ratio 2.3; Partial Thromboplastin Time 62 Seconds (21-31); Prothrombin Time 11.9 Seconds (9.0-12.0)
[2024-09-15 22:21] LABS: Adenovirus PCR Not Detected (NotDetected); Bordetella parapertussis PCR Not Detected (NotDetected); Bordetella pertussis PCR Not Detected (NotDetected); Chlamydia pneumoniae PCR Not Detected (NotDetected); Coronavirus 229E PCR Not Detected (NotDetected); Coronavirus CoV-2 (COVID19)PCR Not Detected (NotDetected); Coronavirus HKU1 PCR Not Detected (NotDetected); Coronavirus NL63 PCR Not Detected (NotDetected); Coronavirus OC43PCR Not Detected (NotDetected); Human Metapneumovirus PCR Not Detected (NotDetected); Influenza A PCR Not Detected (NotDetected); Influenza B PCR Not Detected (NotDetected); Mycoplasma pneumoniae PCR Not Detected (NotDetected); Parainfluenza Virus 1 PCR Not Detected (NotDetected); Parainfluenza Virus 2 PCR Not Detected (NotDetected); Parainfluenza Virus 3 PCR Not Detected (NotDetected); Parainfluenza Virus 4 PCR Not Detected (NotDetected); Respiratory Syncytial VirusPCR Not Detected (NotDetected); Rhinovirus/Enterovirus PCR Not Detected (NotDetected)
[2024-09-15] MEDS: CEFEPIME 2000MG 2,000 MG/20 ML SYR IV STA (22:27)
--- NOTE | 2024-09-15 22:53 | XRay Report ---
Exam(s): XR CXR 1 VIEW EXAM: XR Chest, 1 View CLINICAL HISTORY: Reason for exam: Sepsis. TECHNIQUE: Frontal view of the chest. COMPARISON: 02/13/2022. FINDINGS: A Port-A-Cath is noted with its tip in the region of the right atrium. Lungs: No consolidation. Pleural space: No pleural effusion is seen. No pneumothorax. Heart: The heart is enlarged.. Mediastinum: There is mild uncoiling of thoracic aorta.. Bones/joints: There are degenerative changes in the spine.. IMPRESSION: No acute pulmonary disease.. Electronically signed by: Solitario Cota MD 09/15/24 22:52 PM
[2024-09-15 23:15] LABS: Appearance Urine Cloudy (Clear); Bacteria Urine Automated 4+ (None Seen); Bilirubin Urine Negative (Negative); Blood Urine 1+ (Negative); Color Urine Yellow; Epithelial Cell Urine Auto 0-2 /hpf (0-2); Glucose Urine UA 3+ (Negative); Ketones Urine Trace (Negative); Leukocyte Esterase Urine 2+ (Negative); Nitrite Urine Positive (Negative); Protein Urine 2+ (Negative); RBC Urine Automated 0-2 /hpf (0-2); Specific Gravity Urine 1.021 (1.000-1.030); Urobilinogen Urine Negative (Negative); WBC Urine Automated >50 /hpf (0-5); pH Urine 6.5 (4.5-7.5)
[2024-09-16] MEDS: GABAPENTIN 100 MG CAP PO STA (01:23)
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
[2024-09-16] MEDS ORDERED: ALBUTEROL HFA 8 GM INHALER INH PRN (03:55)
[2024-09-16] MEDS ORDERED: GLUCOSE 10 TAB/TUBE PO PRN (03:55)
[2024-09-16] MEDS ORDERED: CARBOHYDRATES FOR HYPOGLYCEMIA PO PRN (03:55)
[2024-09-16] MEDS ORDERED: GLUCAGON FOR INJ 1 MG VIAL SQ PRN (03:55)
[2024-09-16] MEDS ORDERED: DEXTROSE 50% 50 ML SYRINGE IV PRN (03:55)
[2024-09-16] MEDS ORDERED: BUDESONIDE/FORMOTEROL FUMARATE 160/4.5 60 PUFFS/INHALER INH PRN (03:55)
[2024-09-16] MEDS ORDERED: GLUCOSE 40% GEL 15 GM TUBE PO PRN (03:55)
[2024-09-16] MEDS ORDERED: NITROGLYCERIN SL 0.4 MG/TAB TAB SL PRN (03:55)
[2024-09-16] MEDS ORDERED: ALBUTEROL 0.083% NEBU SOLN 3 ML VIAL INH PRN (04:34)
[2024-09-16 05:58] LABS: Hematocrit (blood only) 22.1 % (42.0-52.0); Hemoglobin 7.6 g/dl (14.0-18.0); Mean Corpuscular Hemoglobin 29.6 pg (25.0-34.0); Mean Corpuscular Hgb Conc 34.4 g/dL (32.0-36.0); Mean Platelet Volume 11.1 fL (9.4-12.4); Platelet Count 42 K/uL (130-400); RDW Coefficient of Variation 13.2 % (11.5-14.5); RDW Standard Deviation 41.4 fL (36.4-46.3); Red Blood Count 2.57 M/uL (4.70-6.10); White Blood Count 8.35 K/ul (4.8-10.8)
[2024-09-16 06:01] LABS: BUN Creatinine Ratio 16.3 (10-20); Calcium 8.6 mg/dl (8.6-10.3); Creatinine Clr Calc Pharmacy 54.1 ml/min; Magnesium 1.9 mg/dl (1.7-2.4); Potassium 4.4 mmol/L (3.5-5.1)
[2024-09-16 06:06] LABS: Basophils # (auto) 0.01 K/uL (0.00-0.20); Basophils % (auto) 0.1 %; Eosinophils # (auto) 0.04 K/uL (0.00-0.50); Eosinophils % (auto) 0.5 %; Immature Granulocytes # (auto) 0.05 K/uL (0.01-0.20); Immature Granulocytes % (auto) 0.6 %; Lymphocytes # (auto) 0.95 K/uL (1.20-3.40); Lymphocytes % (auto) 11.4 %; Monocytes # (auto) 0.47 K/uL (0.11-0.59); Monocytes % (auto) 5.6 %; Neutrophils # (auto) 6.83 K/uL (1.40-6.50); Neutrophils % (auto) 81.8 %; RBC Morphology Unremarkable
[2024-09-16 06:10] LABS: Troponin I High Sensitivity 22.3 pg/ml (0-20)
[2024-09-16] MEDS: ISOSORBIDE MONO EXTENDED REL 30 MG TABCR PO SCH (07:48)
[2024-09-16] MEDS: CHOLECALCIFEROL 25 MCG (1000 UNITS) TAB PO SCH (07:48)
[2024-09-16] MEDS: METOPROLOL SUCC 25MG EXT REL TAB PO SCH (07:48)
[2024-09-16] MEDS: MONTELUKAST SODIUM 10 MG TABLET PO SCH (07:48)
[2024-09-16] MEDS: PYRIDOXINE HCL 50 MG TAB PO SCH (07:48)
[2024-09-16] MEDS: FOLIC ACID 1 MG TAB PO SCH (07:49)
[2024-09-16] MEDS: GABAPENTIN 100 MG CAP PO SCH (07:49)
[2024-09-16] MEDS: LORATADINE 10 MG TAB PO SCH (07:49)
[2024-09-16] MEDS: ATORVASTATIN 40 MG TAB PO SCH (07:49)
[2024-09-16] MEDS: CYANOCOBALAMIN (B-12) 500 MCG TABLET PO SCH (07:49)
[2024-09-16] MEDS: LANTUS PER UNIT CHARGE SQ SCH (08:02)
[2024-09-16] MEDS: EMPAGLIFLOZIN 25 MG TAB PO SCH (08:04)
[2024-09-16 08:23] LABS: Estimated Average Glucose 189 mg/dl; Hemoglobin A1C 8.2 % (4.5-5.6)
--- NOTE | 2024-09-16 08:43 | Communication Note ---
Date of Service: September 16, 2024 Evaluated at bedside Reporting subjective improvement already with no acute concerns at this time EXAM notable for pleasant gentleman sitting on edge of bed, RRR, lungs CTAB #Sepsis due to acute cysitis 38.7 Temp, HR 108 with suspected infection based on UA and symptoms Resolved with gentle IVF 2/2 cardiac status in ed and abx COntinue cefepime for now Follow UA cultures and blood cultures Possible DC tomorrow rest of plan per HP
[2024-09-16] MEDS ORDERED: PANTOprazole 40 MG TAB PO SCH (09:00)
[2024-09-16] MEDS: PANTOprazole 40 MG/10 ML SYR IV SCH (09:27)
[2024-09-16] MEDS: INSULIN ASPART PER UNIT CHARGE SC SCH (09:33)
[2024-09-16] MEDS: CEFEPIME 2000MG 2,000 MG/20 ML SYR IV SCH (09:33)
--- NOTE | 2024-09-16 13:18 | Electrocardiogram Report ---
Test Reason : Blood Pressure : */* mmHG Vent. Rate : 103 BPM Atrial Rate : 103 BPM P-R Int : 174 ms QRS Dur : 90 ms QT Int : 364 ms P-R-T Axes : 29 -38 90 degrees QTcB Int : 476 ms Sinus tachycardia with frequent Premature ventricular complexes Left axis deviation Possible Anterior infarct (cited on or before 11-Feb-2022) Abnormal ECG When compared with ECG of 11-Feb-2022 12:12, No significant change was found Confirmed by Neal Alicia ([id number]) on 09/16/2024 1:18:36 PM Referred By: REFERRED SELF Confirmed By: Neal Alicia
[2024-09-16] MEDS: [UNRECOGNIZED DRUG - REMARK] PO SCH (15:47)
[2024-09-16] MEDS: [UNRECOGNIZED DRUG - REMARK] PO SCH (15:48)
[2024-09-16] MEDS: SODIUM CHLORIDE 0.9% 500 ML IV ONE (17:11)
[2024-09-16] MEDS: HEPARIN 100 UNIT/ML 5ML FLUSH ONE (17:48)
[2024-09-17] MEDS: ACETAMINOPHEN 325 MG TAB PO PRN (08:08)
[2024-09-17] MEDS: PIPERACILLIN/TAZOBACTAM 4.5 GM/100 ML BAG IV SCH (09:19)
[2024-09-17 10:14] LABS: Hematocrit (blood only) 17.9 % (42.0-52.0); Hemoglobin 6.2 g/dl (14.0-18.0); Mean Corpuscular Hemoglobin 29.4 pg (25.0-34.0); Mean Corpuscular Hgb Conc 34.6 g/dL (32.0-36.0); Mean Corpuscular Volume 84.8 fL (80.0-100.0); Mean Platelet Volume 11.4 fL (9.4-12.4); Platelet Count 38 K/uL (130-400); RDW Coefficient of Variation 13.2 % (11.5-14.5); RDW Standard Deviation 41.4 fL (36.4-46.3); Red Blood Count 2.11 M/uL (4.70-6.10); White Blood Count 6.58 K/ul (4.8-10.8)
[2024-09-17 10:37] LABS: Calcium 7.6 mg/dl (8.6-10.3); Potassium 4.2 mmol/L (3.5-5.1)
[2024-09-17] MEDS ORDERED: SODIUM CHLORIDE 0.9% 100 ML IV PRN (10:41)
[2024-09-17] MEDS ORDERED: PHARMACY GLYCEMIC MGMT CONSULT PRN (10:42)
--- NOTE | 2024-09-17 12:21 | Hospitalist Progress Note ---
Date of Service September 17, 2024 Assessment & Plan (1) Acute UTI: Plan: Mr. Paula is a 74-year-old male with past medical history significant for type 2 diabetes, diabetic retinopathy, CKD stage III, dyslipidemia, diabetic polyneuropathy, iron overload transfusional, difficult airway for intubation, lung nodes, hypertension, nonischemic cardiomyopathy, GERD, obesity, myelodysplastic syndrome, pancytopenia comes because of fevers and malaise and found to have sepsis iso acute cystitis. #Sepsis due to acute cystitis 38.7 Temp, HR 108 with suspected infection based on UA and symptoms Resolved with gentle IVF 2/2 cardiac status in ed and abx continued fevers, transition to zosyn in interim Follow UA cultures and blood cultures #Acute on chronic anemia #Myelodysplastic syndrome #Acute on chronic thrombocytopenia Following with heme-onc Currently seems on Imetelstat ,last dose was August 28. Dose was reduced because of thrombocytopenia. Per heme/onco "to transfuse if hemoglobin less than 7.5. Currently requiring 1 or 2 transfusions every week" Blood consented: Transfuse 1 UPRBC on 09/17 for hgb 6.2 #Transfusion iron overload On Jadenu #Chronic systolic CHF #Nonobstructive CAD with 50% mid LAD lesion. Cath in 2021 EF 40 to 40% echo in 01/2022 EF 55% echo on 05/2023 On statin, Imdur and metoprolol assess need for lasix s/p transfusion On Lasix and Jardiance Holding Lasix for now Will monitor for volume overload #Hypertension Imdur, , metoprolol succinate . Holding Lasix and lisinopril Restart as soon as possible Will monitor #CKD stage III Baseline creatinine 1.5-1.7 Presented with creatinine 1.5 Will follow labs #Diabetes Continue home Lantus glycemic pharmacy #GERD Omeprazole at home IV PPI while admitted DVT prophylaxis SCDs Disposition Med/telemetry Full code. Admission and Anticipated Discharge Date Admission Date: September 16, 2024 Subjective Reports feeling a bit tearful and poorly today Just noting a general sense of feeling unwell, diaphoretic, and sob Reports he is due for his transfusion this am and usually will feel unwell when he is due for his transfusion Daughter at bedside Physical Exam Constitutional: WD/WN, vitals as above Respiratory: normal respiratory effort, lungs clear to auscultation Cardiovascular: RRR, no murmur, no edema Gastrointestinal (Abdomen): normal bowel sounds, soft, nontender, no hepatosplenomegaly Results & Data Results & Data Vital Signs (Past 12 Hours) Vital Signs Temp Pulse Pulse Resp BP BP Pulse Ox 09/17/24 11:49 36.9 C 79 18 110/66 09/17/24 11:33 36.9 C 79 18 110/66 97 09/17/24 10:21 37 C 09/17/24 10:21 95 09/17/24 10:15 83 L 09/17/24 07:41 37.7 C H 108 H 20 103/60 91 09/17/24 05:52 109 H 09/17/24 04:13 37.5 C 109 H 18 113/62 91 O2 Del Method O2 Flow Rate 09/17/24 11:49 09/17/24 11:33 Nasal Cannula 2 09/17/24 10:21 09/17/24 10:21 Nasal Cannula 2 09/17/24 10:15 Room Air 09/17/24 07:41 Room Air 09/17/24 05:52 09/17/24 04:13 Room Air Laboratory Results Short CBC 09/17/24 Range/Units 09:34 WBC 6.58 (4.8-10.8) K/ul Hgb 6.2 L* (14.0-18.0) g/dl Hct 17.9 L* (42.0-52.0) % Plt Count 38 L (130-400) K/uL BMP 09/17/24 09:34 Sodium 131 L Potassium 4.2 Chloride 97 L Carbon Dioxide 26 BUN 32 H Creatinine 1.88 H D Glucose 379 H* Calcium 7.6 L Medications Administered Home Medications Medication Instructions Recorded Confirmed Last Taken atorvastatin 40 mg tablet 40 mg PO QAM 07/20/21 09/15/24 09/15/24 lisinopril 10 mg tablet 10 mg PO QAM 07/20/21 09/15/24 09/15/24 nitroglycerin 0.4 mg sublingual 0.4 mg sublingual UD PRN .chest 07/20/21 09/15/24 Unknown tablet (Nitrostat) pain repaglinide 2 mg tablet 2 mg PO .WITH SNACK PRN as directed 07/20/21 09/15/24 09/15/24 albuterol sulfate 90 mcg/actuation 1 inh inhalation QID PRN sob 02/11/22 09/15/24 Unknown aerosol inhaler budesonide-formoterol HFA 160 1 inh inhalation BID PRN sob 02/11/22 09/15/24 Unknown mcg-4.5 mcg/actuation aerosol inhaler (Symbicort) cyanocobalamin (vitamin B-12) 1,000 mcg PO QAM 02/11/22 09/15/24 09/15/24 1,000 mcg tablet loratadine 10 mg tablet 10 mg PO QAM 02/11/22 09/15/24 09/15/24 omeprazole 20 mg capsule,delayed 20 mg PO QAM 02/11/22 09/15/24 09/15/24 release pyridoxine (vitamin B6) 100 mg 100 mg PO QAM 02/11/22 09/15/24 09/15/24 tablet cholecalciferol (vitamin D3) 25 2,000 unit PO QAM #30 caps 02/13/22 09/15/24 09/15/24 mcg (1,000 unit) capsule isosorbide mononitrate 30 mg 30 mg PO QAM #30 tabs 02/13/22 09/15/24 09/15/24 tablet,extended release 24 hr ondansetron HCl 4 mg tablet 4 mg PO BID PRN Nausea 11/09/22 09/15/24 Unknown gabapentin 100 mg capsule 100 mg PO TID 05/17/24 09/15/24 09/15/24 am dose deferasirox 180 mg tablet 180 mg PO QAM 09/15/24 09/15/24 09/15/24 deferasirox 360 mg tablet 1,080 mg PO QAM 09/15/24 09/15/24 09/15/24 empagliflozin 25 mg tablet 25 mg PO QAM 09/15/24 09/15/24 09/15/24 (Jardiance) folic acid 1 mg tablet 1 mg PO QAM 09/15/24 09/15/24 09/15/24 furosemide 40 mg tablet 40 mg PO BID 09/15/24 09/15/24 09/15/24 am dose insulin glargine-yfgn 100 unit/mL 7 unit subcut QAM 09/15/24 09/15/24 09/15/24 (3 mL) subcutaneous pen metformin 500 mg tablet,extended 500 mg PO AMPM 09/15/24 09/15/24 09/15/24 release 24 hr am metoprolol succinate 25 mg 25 mg PO QAM 09/15/24 09/15/24 09/15/24 tablet,extended release 24 hr montelukast 10 mg tablet 10 mg PO QAM 09/15/24 09/15/24 09/15/24 repaglinide 2 mg tablet 4 mg PO AC 09/15/24 09/15/24 Unknown Active Medications Generic Name Dose Route Start Last Admin Trade Name Freq PRN Reason Stop Dose Admin Acetaminophen 650 mg 09/16/24 03:55 09/17/24 08:08 Acetaminophen 325 Mg Tab PO 10/16/24 03:54 650 mg Q4H PRN Administration Pain or Fever Atorvastatin Calcium 40 mg 09/16/24 09:00 09/17/24 08:10 Atorvastatin 40 Mg Tab PO 10/16/24 08:59 40 mg QAM JAQUI Administration Cyanocobalamin 1,000 mcg 09/16/24 09:00 09/17/24 08:10 Cyanocobalamin (B-12) 500 Mcg Tablet PO 10/16/24 08:59 1,000 mcg QAM JAQUI Administration Empagliflozin 25 mg 09/16/24 09:00 09/17/24 08:09 Empagliflozin 25 Mg Tab PO 10/16/24 08:59 25 mg QAM JAQUI Administration Folic Acid 1 mg 09/16/24 09:00 09/17/24 08:10 Folic Acid 1 Mg Tab PO 10/16/24 08:59 1 mg QAM JAQUI Administration Gabapentin 100 mg 09/16/24 09:00 09/17/24 08:10 Gabapentin 100 Mg Cap PO 10/16/24 08:59 100 mg TID JAQUI Administration Pantoprazole Sodium 40 mg in 10 mls @ 5 mls/min 09/16/24 09:00 09/17/24 08:09 Protonix IV 10/16/24 08:59 5 mls/min BID JAQUI Administration Piperacillin Sod/Tazobactam Sod 4.5 gm in 100 mls @ 25 mls/hr 09/17/24 08:30 09/17/24 09:19 Zosyn IV 09/19/24 08:29 25 mls/hr Q8H JAQUI Administration Protocol Insulin Aspart 0 units 09/16/24 07:30 09/17/24 09:11 Insulin Aspart Per Unit Charge SC 10/16/24 07:29 Not Given ACHS COUNTS INCLUDE 234 BEDS AT THE [facility] Insulin Glargine 7 units 09/16/24 09:00 09/17/24 08:09 Lantus Per Unit Charge SQ 10/16/24 08:59 7 units QAM JAQUI Administration Isosorbide Mononitrate 30 mg 09/16/24 09:00 09/16/24 07:48 Isosorbide Erath Extended Rel 30 Mg Tabcr PO 10/16/24 08:59 30 mg QAM JAQUI Administration Loratadine 10 mg 09/16/24 09:00 09/17/24 08:09 Loratadine 10 Mg Tab PO 10/16/24 08:59 10 mg QAM JAQUI Administration Metoprolol Succinate 25 mg 09/16/24 09:00 09/17/24 08:13 Metoprolol Succ 25mg Ext Rel Tab PO 10/16/24 08:59 Not Given QAM JAQUI Montelukast Sodium 10 mg 09/16/24 09:00 09/17/24 08:10 Montelukast Sodium 10 Mg Tablet PO 10/16/24 08:59 10 mg QAM JAQUI Administration Deferasirox 360 Mg 3 each 09/16/24 14:30 09/17/24 08:13 Tablet - Non-Form Pt PO 10/16/24 14:29 1,080 mg Own Med QAM JAQUI Administration Deferasirox 180 Mg 1 each 09/16/24 14:30 09/17/24 08:15 Tablet - Non-Form Pt PO 10/16/24 14:29 180 mg Own Med QAM JAQUI Administration Pyridoxine HCl 100 mg 09/16/24 09:00 09/17/24 08:08 Pyridoxine Hcl 50 Mg Tab PO 10/16/24 08:59 100 mg QAM JAQUI Administration Vitamin D 50 mcg 09/16/24 09:00 09/17/24 08:09 Cholecalciferol 25 Mcg (1000 Units) Tab PO 10/16/24 08:59 50 mcg QAM JAQUI Administration
--- NOTE | 2024-09-17 14:09 | Pharmacy Report ---
Pharmacy Glycemic Short Note 2 - Date of Service September 17, 2024 - Glycemic Short BSG Results (Last 24 hours): 09/16/24 09/17/24 09/17/24 17:04 07:56 09:34 Glucose 379 H* POC Glucose 132 H 144 H 09/17/24 09/17/24 10:29 12:11 Glucose POC Glucose 213 H 256 H OUTPATIENT ANTIDIABETIC REGIMEN: * semglee 7 units SQ QAM * repaglinide 4mg AC & 2mg with snacks (skip if not eating) * Jardiance 25mg QAM * metformin 500mg AMHS * HbA1c 8.2% (09/16/24) ASSESSMENT: * Roberto is a 74 year old male admitted with UTI/acute on chronic anemia with a history of type 2 diabetes mellitus. Pharmacy has been consulted to assist with glycemic managment while inpatient. * Fasting BSG this AM acceptable, blood drawn BS drawn later that fasting POC, suspect inaccurate as it was drawn approximately an hour and a half after breakfast. Will continue to trend continue current basal regimen at this time and trend fasting BSGs. * Roberto received 27 units of insulin yesterday (7 were basal), post-prandials elevated will tighten carbohydrate coverage PLAN FOR INPATIENT GLYCEMIC CONTROL: * Hold outpatient oral diabetes medications * Basal insulin * Lantus 7 units SQ QAM * Bolus insulin * NovoLog per scale ACHS or Q6hrs while NPO * Goal Range: Low 120 mg/dL - High 150 mg/dL * Correction Factor: 30 mg/dL/unit * Nutritional / Prandial insulin per carb ratio of 1 unit per 8 grams CHO consumed
[2024-09-17 17:57] LABS: Hemoglobin 8.1 g/dl (14.0-18.0)
[2024-09-17] MEDS: FUROSEMIDE 40 MG TAB PO SCH (20:34)
[2024-09-18] MEDS ORDERED: guaiFENesin/DEXTROM SYRUP 100MG/10MG 5ML UDC PO PRN (00:07)
[2024-09-18] MEDS: guaiFENesin 600 MG TABCR PO SCH (00:36)
[2024-09-18] MEDS: diphenhydrAMINE Capsule 25 MG CAP PO ONE (00:36)
[2024-09-18 06:42] LABS: Hematocrit (blood only) 20.7 % (42.0-52.0); Hemoglobin 7.1 g/dl (14.0-18.0); Mean Corpuscular Hemoglobin 28.6 pg (25.0-34.0); Mean Corpuscular Hgb Conc 34.3 g/dL (32.0-36.0); Mean Corpuscular Volume 83.5 fL (80.0-100.0); Platelet Count 40 K/uL (130-400); RDW Coefficient of Variation 13.9 % (11.5-14.5); RDW Standard Deviation 42.5 fL (36.4-46.3); Red Blood Count 2.48 M/uL (4.70-6.10); White Blood Count 5.43 K/ul (4.8-10.8)
[2024-09-18 06:48] LABS: BUN Creatinine Ratio 20.2 (10-20); Calcium 7.9 mg/dl (8.6-10.3); Creatinine Clr Calc Pharmacy 43.1 ml/min; Magnesium 1.8 mg/dl (1.7-2.4); Phosphorus 3.2 mg/dl (2.5-4.9); Potassium 3.9 mmol/L (3.5-5.1)
[2024-09-18] MEDS ORDERED: SODIUM CHLORIDE 0.9% 100 ML IV PRN (07:10)
--- NOTE | 2024-09-18 08:59 | Hospitalist Progress Note ---
Date of Service September 18, 2024 Assessment & Plan (1) Acute UTI: Plan: Mr. Paula is a 74-year-old male with past medical history significant for type 2 diabetes, diabetic retinopathy, CKD stage III, dyslipidemia, diabetic polyneuropathy, iron overload transfusional, difficult airway for intubation, lung nodes, hypertension, nonischemic cardiomyopathy, GERD, obesity, myelodysplastic syndrome, pancytopenia comes because of fevers and malaise and found to have sepsis iso acute cystitis. #Constipation will add miralax #CKD stage III, concern for possible LILIA #Hyponatremia Baseline creatinine 1.5-1.7 creatinine 1.9 today and uptrending Urine studies ordered, held lasix will repeat bmp in afternoon and am, if uptrending will consult nephrology serum osmo and urine osmo ordered given difficult to ascertain fluid status Will follow labs #Sepsis due to acute cystitis 38.7 Temp, HR 108 with suspected infection based on UA and symptoms Resolved with gentle IVF 2/2 cardiac status in ed and abx resolved fevers, transitioned to CTX based on mostly pansensitive e coli (ampcillin resistant ) #Acute on chronic anemia #Myelodysplastic syndrome #Acute on chronic thrombocytopenia Following with heme-onc Currently seems on Imetelstat ,last dose was August 28. Dose was reduced because of thrombocytopenia. Per heme/onco "to transfuse if hemoglobin less than 7.5. Currently requiring 1 or 2 transfusions every week" Blood consented: Transfuse 1 UPRBC on 09/17 for hgb 6.2, and 1 UPRBC on 09/18 for 7.1 hgb Reports symptomatic improvement #Transfusion iron overload On Jadenu #Chronic systolic CHF #Nonobstructive CAD with 50% mid LAD lesion. Cath in 2021 EF 40 to 40% echo in 01/2022 EF 55% echo on 05/2023 On statin, Imdur and metoprolol assess need for lasix s/p transfusion On Lasix and Jardiance Holding Lasix for now Will monitor for volume overload #Hypertension Imdur, , metoprolol succinate . Holding Lasix and lisinopril Restart as soon as possible Will monitor #Diabetes Continue home Lantus glycemic pharmacy #GERD Omeprazole at home IV PPI while admitted DVT prophylaxis SCDs Disposition Med/telemetry Full code. Admission and Anticipated Discharge Date Admission Date: September 16, 2024 Subjective feeling improved today, denies any new symptoms except constipation at this time denies sob or leg edema Reports no further fevers or diaphoresis Physical Exam Constitutional: WD/WN, vitals as above Respiratory: normal respiratory effort, lungs clear to auscultation Cardiovascular: RRR, no murmur, no edema Gastrointestinal (Abdomen): normal bowel sounds, soft, nontender, no hepatosplenomegaly Results & Data Results & Data Vital Signs (Past 12 Hours) Vital Signs Temp Pulse Pulse Resp BP BP Pulse Ox 09/18/24 08:34 36.7 C 74 18 104/61 95 09/18/24 08:04 36.8 C 93 H 18 103/66 09/18/24 07:49 36.9 C 74 20 116/71 91 09/18/24 07:38 09/18/24 07:31 36.8 C 74 17 128/69 90 09/18/24 03:20 36.9 C 99 H 18 117/65 96 09/18/24 00:06 09/17/24 22:56 37.0 C 93 H 20 109/67 96 09/17/24 21:49 87 O2 Del Method 09/18/24 08:34 09/18/24 08:04 09/18/24 07:49 09/18/24 07:38 Room Air 09/18/24 07:31 09/18/24 03:20 Room Air 09/18/24 00:06 Room Air 09/17/24 22:56 Room Air 09/17/24 21:49 Laboratory Results Short CBC 09/17/24 09/17/24 09/18/24 Range/Units 09:34 17:23 06:01 WBC 6.58 5.43 (4.8-10.8) K/ul Hgb 6.2 L* 8.1 L 7.1 L (14.0-18.0) g/dl Hct 17.9 L* 24.0 L 20.7 L* (42.0-52.0) % Plt Count 38 L 40 L (130-400) K/uL BMP 09/17/24 09/18/24 09:34 06:01 Sodium 131 L 135 L Potassium 4.2 3.9 Chloride 97 L 101 Carbon Dioxide 26 28 BUN 32 H 39 H Creatinine 1.88 H D 1.93 H Glucose 379 H* 136 H Calcium 7.6 L 7.9 L Medications Administered Home Medications Medication Instructions Recorded Confirmed Last Taken atorvastatin 40 mg tablet 40 mg PO QAM 07/20/21 09/15/24 09/15/24 lisinopril 10 mg tablet 10 mg PO QAM 07/20/21 09/15/24 09/15/24 nitroglycerin 0.4 mg sublingual 0.4 mg sublingual UD PRN .chest 07/20/21 09/15/24 Unknown tablet (Nitrostat) pain repaglinide 2 mg tablet 2 mg PO .WITH SNACK PRN as directed 07/20/21 09/15/24 09/15/24 albuterol sulfate 90 mcg/actuation 1 inh inhalation QID PRN sob 02/11/22 09/15/24 Unknown aerosol inhaler budesonide-formoterol HFA 160 1 inh inhalation BID PRN sob 02/11/22 09/15/24 Unknown mcg-4.5 mcg/actuation aerosol inhaler (Symbicort) cyanocobalamin (vitamin B-12) 1,000 mcg PO QAM 02/11/22 09/15/24 09/15/24 1,000 mcg tablet loratadine 10 mg tablet 10 mg PO QAM 02/11/22 09/15/24 09/15/24 omeprazole 20 mg capsule,delayed 20 mg PO QAM 02/11/22 09/15/24 09/15/24 release pyridoxine (vitamin B6) 100 mg 100 mg PO QAM 02/11/22 09/15/24 09/15/24 tablet cholecalciferol (vitamin D3) 25 2,000 unit PO QAM #30 caps 02/13/22 09/15/24 09/15/24 mcg (1,000 unit) capsule isosorbide mononitrate 30 mg 30 mg PO QAM #30 tabs 02/13/22 09/15/24 09/15/24 tablet,extended release 24 hr ondansetron HCl 4 mg tablet 4 mg PO BID PRN Nausea 11/09/22 09/15/24 Unknown gabapentin 100 mg capsule 100 mg PO TID 05/17/24 09/15/24 09/15/24 am dose deferasirox 180 mg tablet 180 mg PO QAM 09/15/24 09/15/24 09/15/24 deferasirox 360 mg tablet 1,080 mg PO QAM 09/15/24 09/15/24 09/15/24 empagliflozin 25 mg tablet 25 mg PO [facility] 09/15/24 09/15/24 09/15/24 (Jardiance) folic acid 1 mg tablet 1 mg PO QAM 09/15/24 09/15/24 09/15/24 furosemide 40 mg tablet 40 mg PO BID 09/15/24 09/15/24 09/15/24 am dose insulin glargine-yfgn 100 unit/mL 7 unit subcut [facility] 09/15/24 09/15/24 09/15/24 (3 mL) subcutaneous pen metformin 500 mg tablet,extended 500 mg PO AMPM 09/15/24 09/15/24 09/15/24 release 24 hr am metoprolol succinate 25 mg 25 mg PO [facility] 09/15/24 09/15/24 09/15/24 tablet,extended release 24 hr montelukast 10 mg tablet 10 mg PO [facility] 09/15/24 09/15/24 09/15/24 repaglinide 2 mg tablet 4 mg PO AC 09/15/24 09/15/24 Unknown Active Medications Generic Name Dose Route Start Last Admin Trade Name Freq PRN Reason Stop Dose Admin Acetaminophen 650 mg 09/16/24 03:55 09/18/24 06:08 Acetaminophen 325 Mg Tab PO 10/16/24 03:54 650 mg Q4H PRN Administration Pain or Fever Atorvastatin Calcium 40 mg 09/16/24 09:00 09/18/24 08:49 Atorvastatin 40 Mg Tab PO 10/16/24 08:59 40 mg QAM JAQUI Administration Cyanocobalamin 1,000 mcg 09/16/24 09:00 09/18/24 08:49 Cyanocobalamin (B-12) 500 Mcg Tablet PO 10/16/24 08:59 1,000 mcg QAM JAQUI Administration Empagliflozin 25 mg 09/16/24 09:00 09/17/24 08:09 Empagliflozin 25 Mg Tab PO 10/16/24 08:59 25 mg QAM JAQUI Administration Folic Acid 1 mg 09/16/24 09:00 09/18/24 08:49 Folic Acid 1 Mg Tab PO 10/16/24 08:59 1 mg QAM JAQUI Administration Furosemide 40 mg 09/17/24 21:00 09/17/24 20:34 Furosemide 40 Mg Tab PO 10/17/24 20:59 40 mg BID JAQUI Administration Gabapentin 100 mg 09/16/24 09:00 09/18/24 08:49 Gabapentin 100 Mg Cap PO 10/16/24 08:59 100 mg TID JAQUI Administration Guaifenesin 600 mg 09/18/24 00:10 09/18/24 08:49 Guaifenesin 600 Mg Tabcr PO 10/18/24 00:09 600 mg Q12 JAQUI Administration Pantoprazole Sodium 40 mg in 10 mls @ 5 mls/min 09/16/24 09:00 09/17/24 20:34 Protonix IV 10/16/24 08:59 5 mls/min BID JAQUI Administration Insulin Aspart 0 units 09/16/24 07:30 09/17/24 20:51 Insulin Aspart Per Unit Charge SC 10/16/24 07:29 2 units ACHS JAQUI Administration Insulin Glargine 7 units 09/16/24 09:00 09/17/24 08:09 Lantus Per Unit Charge SQ 10/16/24 08:59 7 units QAM JAQUI Administration Isosorbide Mononitrate 30 mg 09/16/24 09:00 09/16/24 07:48 Isosorbide Adams Extended Rel 30 Mg Tabcr PO 10/16/24 08:59 30 mg QAM JAQUI Administration Loratadine 10 mg 09/16/24 09:00 09/18/24 08:49 Loratadine 10 Mg Tab PO 10/16/24 08:59 10 mg QAM JAQUI Administration Metoprolol Succinate 25 mg 09/16/24 09:00 09/18/24 08:49 Metoprolol Succ 25mg Ext Rel Tab PO 10/16/24 08:59 25 mg QAM JAQUI Administration Montelukast Sodium 10 mg 09/16/24 09:00 09/18/24 08:50 Montelukast Sodium 10 Mg Tablet PO 10/16/24 08:59 10 mg QAM JAQUI Administration Deferasirox 360 Mg 3 each 09/16/24 14:30 09/18/24 08:53 Tablet - Non-Form Pt PO 10/16/24 14:29 1,080 mg Own Med QAM JAQUI Administration Deferasirox 180 Mg 1 each 09/16/24 14:30 09/18/24 08:52 Tablet - Non-Form Pt PO 10/16/24 14:29 180 mg Own Med QAM JAQUI Administration Pyridoxine HCl 100 mg 09/16/24 09:00 09/17/24 08:08 Pyridoxine Hcl 50 Mg Tab PO 10/16/24 08:59 100 mg QAM JAQUI Administration Vitamin D 50 mcg 09/16/24 09:00 09/18/24 08:53 Cholecalciferol 25 Mcg (1000 Units) Tab PO 10/16/24 08:59 50 mcg QAM JAQUI Administration
[2024-09-18] MEDS: cefTRIAXone SODIUM 2,000 MG/50 ML BAG IV SCH (09:08)
[2024-09-18] MEDS: POLYETHYLENE (MIRALAX) 17 GM PACK PO SCH (10:25)
[2024-09-18 15:12] LABS: Appearance Urine Clear (Clear); Bacteria Urine Automated None Seen (None Seen); Bilirubin Urine Negative (Negative); Blood Urine 1+ (Negative); Color Urine Yellow; Epithelial Cell Urine Auto 0-2 /hpf (0-2); Glucose Urine UA 3+ (Negative); Ketones Urine Negative (Negative); Leukocyte Esterase Urine 2+ (Negative); Nitrite Urine Negative (Negative); Protein Urine 1+ (Negative); RBC Urine Automated 0-2 /hpf (0-2); Urobilinogen Urine Negative (Negative); WBC Urine Automated >50 /hpf (0-5)
[2024-09-18 16:07] LABS: Urine Potassium 34.7 mmol/L
[2024-09-18 16:15] LABS: Creatinine Urine Random 58.6 mg/dl; Protein Creatinine Ratio Urine 0.9 (0-0.2); Total Protein Urine Random 52.8 mg/dl (0-11.9)
[2024-09-18 17:23] LABS: BUN Creatinine Ratio 20.6 (10-20); Calcium 7.9 mg/dl (8.6-10.3); Creatinine Clr Calc Pharmacy 42.9 ml/min
[2024-09-18 19:28] LABS: Hemoglobin 7.9 g/dl (14.0-18.0)
[2024-09-18] MEDS: PANTOprazole 40 MG TAB PO SCH (20:38)
[2024-09-19 04:42] LABS: Appearance Urine Clear (Clear); Bacteria Urine Automated None Seen (None Seen); Bilirubin Urine Negative (Negative); Blood Urine Trace (Negative); Cast Urine Automated 0-2 /lpf (0-2); Color Urine Yellow; Epithelial Cell Urine Auto 0-2 /hpf (0-2); Glucose Urine UA 3+ (Negative); Ketones Urine Negative (Negative); Leukocyte Esterase Urine Trace (Negative); Nitrite Urine Negative (Negative); Protein Urine 1+ (Negative); RBC Urine Automated 0-2 /hpf (0-2); Specific Gravity Urine 1.016 (1.000-1.030); Urobilinogen Urine Negative (Negative); pH Urine 5.5 (4.5-7.5)
[2024-09-19 06:40] LABS: Hematocrit (blood only) 22.8 % (42.0-52.0); Hemoglobin 7.7 g/dl (14.0-18.0); Mean Corpuscular Hemoglobin 28.4 pg (25.0-34.0); Mean Corpuscular Hgb Conc 33.8 g/dL (32.0-36.0); Mean Corpuscular Volume 84.1 fL (80.0-100.0); Mean Platelet Volume 11.2 fL (9.4-12.4); Platelet Count 40 K/uL (130-400); RDW Coefficient of Variation 13.8 % (11.5-14.5); RDW Standard Deviation 42.5 fL (36.4-46.3); Red Blood Count 2.71 M/uL (4.70-6.10); White Blood Count 4.19 K/ul (4.8-10.8)
[2024-09-19 07:27] LABS: BUN Creatinine Ratio 21.7 (10-20); Creatinine Clr Calc Pharmacy 45.4 ml/min; Magnesium 1.9 mg/dl (1.7-2.4)
[2024-09-19] MEDS: INSULIN ASPART PER UNIT CHARGE SC SCH ×2 (09:08→12:43)
--- NOTE | 2024-09-19 11:13 | Pharmacy Report ---
Pharmacy Glycemic Short Note 2 - Date of Service September 19, 2024 - Glycemic Short BSG Results (Last 24 hours): 09/18/24 09/18/24 09/18/24 12:07 16:41 17:10 Glucose 109 H POC Glucose 246 H 115 H 09/18/24 09/19/24 09/19/24 20:35 06:05 07:53 Glucose 144 H POC Glucose 166 H 145 H OUTPATIENT ANTIDIABETIC REGIMEN: * semglee 7 units SQ QAM * repaglinide 4mg AC & 2mg with snacks (skip if not eating) * Jardiance 25mg QAM * metformin 500mg AMHS * HbA1c 8.2% (09/16/24) ASSESSMENT: 09/19: * Roberto received 29 units of insulin yesterday (7 were basal) * Fasting BSG this AM within goal range, continue current basal regimen. * Lunchtime post-prandials elevated, will trial tighter breakfast parameters with NovoLog 09/17: * Roberto is a 74 year old male admitted with UTI/acute on chronic anemia with a history of type 2 diabetes mellitus. Pharmacy has been consulted to assist with glycemic managment while inpatient. * Fasting BSG this AM acceptable, blood drawn BS drawn later that fasting POC, suspect inaccurate as it was drawn approximately an hour and a half after breakfast. Will continue to trend continue current basal regimen at this time and trend fasting BSGs. * Roberto received 27 units of insulin yesterday (7 were basal), post-prandials elevated will tighten carbohydrate coverage PLAN FOR INPATIENT GLYCEMIC CONTROL: * Hold outpatient oral diabetes medications * Basal insulin * Lantus 7 units SQ QAM * Bolus insulin- with breakfast * NovoLog per scale QDB * Goal Range: Low 120 mg/dL - High 150 mg/dL * Correction Factor: 20 mg/dL/unit * Nutritional / Prandial insulin per carb ratio of 1 unit per 6 grams CHO consumed * Bolus insulin * NovoLog per scale QDL, QDD, and HS or Q6hrs while NPO * Goal Range: Low 120 mg/dL - High 150 mg/dL * Correction Factor: 30 mg/dL/unit * Nutritional / Prandial insulin per carb ratio of 1 unit per 8 grams CHO consumed
--- NOTE | 2024-09-19 11:32 | Hospitalist Progress Note ---
Date of Service September 19, 2024 Assessment & Plan (1) Acute UTI: Plan: Mr. Paula is a 74-year-old male with past medical history significant for type 2 diabetes, diabetic retinopathy, CKD stage III, dyslipidemia, diabetic polyneuropathy, iron overload transfusional, difficult airway for intubation, lung nodes, hypertension, nonischemic cardiomyopathy, GERD, obesity, myelodysplastic syndrome, pancytopenia comes because of fevers and malaise and found to have sepsis iso acute cystitis. Sepsis due to acute cystitis 38.7 Temp, HR 108 with suspected infection based on UA and symptoms Resolved with gentle IVF 2/2 cardiac status in ed and abx resolved fevers, transitioned to CTX based on mostly pansensitive e coli (ampcillin resistant ) Gross Hematuria Pt with multiple episodes UA repeated, repeat urine cultures pending CT abd/pelvis pending Urology consulted, appreciate recs Constipation miralax CKD stage III, concern for possible LILIA Hyponatremia Baseline creatinine 1.5-1.7 creatinine 1.9 today and uptrending Urine studies ordered, held lasix will repeat bmp in afternoon and am, if uptrending will consult nephrology serum osmo and urine osmo ordered given difficult to ascertain fluid status Will follow labs Acute on chronic anemia Myelodysplastic syndrome Acute on chronic thrombocytopenia Following with heme-onc Currently seems on Imetelstat ,last dose was August 28. Dose was reduced because of thrombocytopenia. Per heme/onco "to transfuse if hemoglobin less than 7.5. Currently requiring 1 or 2 transfusions every week" Blood consented: Transfuse 1 UPRBC on 09/17 for hgb 6.2, and 1 UPRBC on 09/18 for 7.1 hgb Reports symptomatic improvement Transfusion iron overload On Jadenu Chronic systolic CHF Nonobstructive CAD with 50% mid LAD lesion. Cath in 2021 EF 40 to 40% echo in 01/2022 EF 55% echo on 05/2023 On statin, Imdur and metoprolol assess need for lasix s/p transfusion On Lasix and Jardiance Holding Lasix for now Will monitor for volume overload Hypertension Imdur, , metoprolol succinate . Holding Lasix and lisinopril Restart as soon as possible Will monitor Diabetes Continue home Lantus glycemic pharmacy GERD Omeprazole at home IV PPI while admitted DVT prophylaxis SCDs Disposition Med/telemetry Full code. Admission and Anticipated Discharge Date Admission Date: September 16, 2024 Subjective pt was seen in the Am Stated he would like his gabapentin to be prn Noted that he has had hematuria episodes and per nursing bright red blood has also been noted. Review of Systems Review of Systems: All systems reviewed & are unremarkable except as noted in Subjective Physical Exam Physical Exam: General: Alert, oriented. No acute distress Psych: Appropriate mood and affect HEENT: NC/AT CV: RRR Resp: Breath sounds clear bilaterally, no increased effort of breathing Abdomen:Soft, nontende Extremities: edema in lower extremities bilaterally. Results & Data Results & Data Vital Signs (Past 12 Hours) Vital Signs Temp Pulse Pulse Resp BP Pulse Ox O2 Del Method 09/19/24 11:22 36.6 C 72 15 113/72 93 Room Air 09/19/24 11:15 Room Air 09/19/24 08:06 36.7 C 82 13 122/75 97 Room Air 09/19/24 04:21 36.5 C 60 18 108/59 L 97 Room Air
--- NOTE | 2024-09-19 15:44 | Urology Consultation ---
Date of Consultation September 19, 2024 Assessment & Plan (1) Gross hematuria: (2) Acute UTI: Plan 74-year-old male who is admitted with sepsis secondary to acute UTI - Urology was consulted for gross hematuria Pt reported noticing blood at the meatus twice recently after having a BM He is voiding without issue otherwise and has not noticed blood/hematuria with every void He is afebrile with stable vitals at present Labs today show WBCs 4.19, hemoglobin 7.7, creatinine 1.84 Urine culture 09/15 grew E. coli, repeat x 2 pending Blood cultures preliminary no growth He was on cefepime and now transitioned to ceftriaxone Given his clinical picture on admission (fever/sepsis), acute UTI, and hematuria would recommend obtaining imaging with a CT abd pelvis for further evaluation. He will eventually need a cystoscopy to complete the hematuria workup but this can likely be completed as an outpatient depending on imaging findings. Continue antibiotic therapy Monitor ability to void, bladder scan as needed Urology will follow along - please call with any questions/concerns Supervising Physician Co-Signing Physician Notes 74-year-old male with hematuria. He will require full hematuria with CT urogram and cystoscopy, ideally as well as cytology. Although this could be performed as an outpatient, would be reasonable to obtain CT scan to make sure there is no obstruction of the upper tracts while he is in the hospital. History of Present Illness Attending Physician: Nesha Chahal MD History of Present Illness 74-year-old male with a PMHx including type 2 diabetes, diabetic retinopathy, CKD stage III, dyslipidemia, diabetic polyneuropathy, iron overload tra nsfusional, difficult airway for intubation, lung nodes, hypertension, nonischemic cardiomyopathy, GERD, obesity, myelodysplastic syndrome, pancytopenia who presented to the ED on 09/15/2024 due to general malaise and fever. He also reported urinary symptoms for several weeks. On arrival, he had a 38.7 Temp, HR 108 with suspected infection based on UA and symptoms. Urine culture grew E. coli. Blood cultures preliminary no growth x 48 hours. He was on cefepime and transition to ceftriaxone. He is admitted to medicine service. Urology has been consulted for gross hematuria. Chart reviewed- Urinalysis 09/15/2024 shows 1+ blood, positive nitrite, 2+ LE, 02 RBC, 4+ bacteria Urinalysis 09/18/2024 shows 1+ blood, negative nitrite, 2+ LE, 02 RBC, no bacteria, Urinalysis 09/19/24 shows trace blood, trace LE, 1120 WBC, 02 RBC, no bacteria Urine culture 09/15/2024 grew E. coli. Repeat urine culture 09/18 preliminary no growth. Repeat urine culture 09/19 pending. Patient has a history of myelodysplastic syndrome and acute on chronic anemia and thrombocytopenia. Per notes, he typically requires 12 transfusions per week. He was transfused with 1 unit PRBC on 09/17 for hemoglobin of 6.2 and 1 unit PRBC on 09/18 for hemoglobin 7.1. No abdominal/pelvic imaging. Patient seen at bedside today. Awake and resting in bed on arrival. No acute distress. He reports noticing a few small drops of blood at the tip of his penis. He noticed this after having a bowel movement. Reports he had been constipated. He denies any difficulty with voiding and feels he is emptying his bladder well. Denies dysuria. Denies abdominal, flank, and back pain. Denies fever, chills, nausea, vomiting. He does report a history of hematuria with prior workup with a urologist several years ago. He is unsure of any additional details. Denies history of malignancy. Denies history of kidney stones. Allergies Allergy/AdvReac Type Severity Reaction Status Date / Time ether AdvReac Mild VOMITING Verified 09/03/24 09:25 Home Medications Medication Instructions Recorded Confirmed Type atorvastatin 40 mg tablet 40 mg PO QAM 07/20/21 09/15/24 History lisinopril 10 mg tablet 10 mg PO QAM 07/20/21 09/15/24 History nitroglycerin 0.4 mg sublingual 0.4 mg sublingual UD PRN .chest 07/20/21 09/15/24 History tablet (Nitrostat) pain repaglinide 2 mg tablet 2 mg PO .WITH SNACK PRN as directed 07/20/21 09/15/24 History albuterol sulfate 90 mcg/actuation 1 inh inhalation QID PRN sob 02/11/22 09/15/24 History aerosol inhaler budesonide-formoterol HFA 160 1 inh inhalation BID PRN sob 02/11/22 09/15/24 History mcg-4.5 mcg/actuation aerosol inhaler (Symbicort) cyanocobalamin (vitamin B-12) 1,000 mcg PO QAM 02/11/22 09/15/24 History 1,000 mcg tablet loratadine 10 mg tablet 10 mg PO QAM 02/11/22 09/15/24 History omeprazole 20 mg capsule,delayed 20 mg PO QAM 02/11/22 09/15/24 History release pyridoxine (vitamin B6) 100 mg 100 mg PO QAM 02/11/22 09/15/24 History tablet cholecalciferol (vitamin D3) 25 2,000 unit PO QAM #30 caps 02/13/22 09/15/24 Rx mcg (1,000 unit) capsule isosorbide mononitrate 30 mg 30 mg PO QAM #30 tabs 02/13/22 09/15/24 Rx tablet,extended release 24 hr ondansetron HCl 4 mg tablet 4 mg PO BID PRN Nausea 11/09/22 09/15/24 History gabapentin 100 mg capsule 100 mg PO TID 05/17/24 09/15/24 History deferasirox 180 mg tablet 180 mg PO QAM 09/15/24 09/15/24 History deferasirox 360 mg tablet 1,080 mg PO QAM 09/15/24 09/15/24 History empagliflozin 25 mg tablet 25 mg PO QAM 09/15/24 09/15/24 History (Jardiance) folic acid 1 mg tablet 1 mg PO QAM 09/15/24 09/15/24 History furosemide 40 mg tablet 40 mg PO BID 09/15/24 09/15/24 History insulin glargine-yfgn 100 unit/mL 7 unit subcut [facility] 09/15/24 09/15/24 History (3 mL) subcutaneous pen metformin 500 mg tablet,extended 500 mg PO AMPM 09/15/24 09/15/24 History release 24 hr metoprolol succinate 25 mg 25 mg PO QAM 09/15/24 09/15/24 History tablet,extended release 24 hr montelukast 10 mg tablet 10 mg PO QAM 09/15/24 09/15/24 History repaglinide 2 mg tablet 4 mg PO AC 09/15/24 09/15/24 History Patient History Medical History (Updated 09/19/24 @ 15:52 by ALEXUS Guerrero) DVT prophylaxis Osteoarthritis Kidney stones PASSED ON OWN, SOME STILL LEFT GERD (gastroesophageal reflux disease) Asthma WELL CONTROLLED > RARE RESC INH USE Surgical History History of colonoscopy History of tooth extraction History of tonsillectomy History of total knee replacement BILAT Family History Mother Diabetes Father Diabetes Other Family history non-contributory Social History Smoking Status: Never smoker Second Hand Exposure: Yes (PARENTS SMOKED); Do You Dip or Chew Tobacco: No; Hx Alcohol Use: Yes Hx Substance Use: No Preferred Language: Wolof Communication Ability: Effective 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 Beliefs That Will Affect Care: None Current Living Situation: Spouse Other Information That Helps Us Care for You: No Feels Safe at Home: Yes Safety Concerns: Feels Safe At This Time Assistive Devices: None Review of Systems Review of Systems: All systems reviewed & are unremarkable except as noted in HPI & below Physical Exam Constitutional: well developed and well nourished; no acute distress Respiratory: normal respiratory effort; no respiratory distress and no labored breathing Musculoskeletal: Head/Neck/Chest: normocephalic Skin: No visible rashes or lesions to exposed skin areas Neurologic: awake Psychiatric: A+Ox3, euthymic affect Results & Data Vital Signs (Past 12 Hours) Vital Signs Temp Pulse Pulse Pulse Resp BP Pulse Ox 09/19/24 15:28 36.9 C 79 18 135/61 94 09/19/24 13:03 81 09/19/24 11:22 36.6 C 72 15 113/72 93 09/19/24 11:15 09/19/24 08:06 36.7 C 82 13 122/75 97 09/19/24 04:21 36.5 C 60 18 108/59 L 97 O2 Del Method 09/19/24 15:28 Room Air 09/19/24 13:03 09/19/24 11:22 Room Air 09/19/24 11:15 Room Air 09/19/24 08:06 Room Air 09/19/24 04:21 Room Air PG Care Time/CCT Total # of Minutes Spent Total Time Spent with Patient: Total time spent is greater than 50% in coordination of care (as documented) at patient's floor/unit and/or counseling patient: Coding Level of Care Code 22311 INT INP/OBS CARE MIN Diagnoses Gross hematuria R31.0 Acute UTI N39.0
[2024-09-19 16:37] LABS: Adenovirus F 40/41 PCR Not Detected (NotDetected); Astrovirus PCR Not Detected (NotDetected); Campylobacter PCR Not Detected (NotDetected); Cryptosporidium PCR Not Detected (NotDetected); Cyclospora cayetanensis PCR Not Detected (NotDetected); Entamoeba histolytica PCR Not Detected (NotDetected); Enteroaggregative E.coli(EAEC) Not Detected (NotDetected); Enteropathogenic E.coli (EPEC) Not Detected (NotDetected); Enterotoxigenic E.coli (ETEC) Not Detected (NotDetected); Giardia lamblia PCR Not Detected (NotDetected); Norovirus GI/GII PCR Not Detected (NotDetected); Plesiomonas shigelloides PCR Not Detected (NotDetected); Rotavirus A PCR Not Detected (NotDetected); Salmonella PCR Not Detected (NotDetected); Sapovirus PCR Not Detected (NotDetected); Shiga-like Toxin E.coli (STEC) Not Detected (NotDetected); Shigella/Enteroinvasive E.coli Not Detected (NotDetected); Vibrio cholerae PCR Not Detected (NotDetected); Vibrio species PCR Not Detected (NotDetected); Yersinia enterocolitica PCR Not Detected (NotDetected)
--- NOTE | 2024-09-19 19:44 | CT Scan Report ---
EXAM: CT abd pelvis wo con CLINICAL HISTORY: Hematuria, UTI. TECHNIQUE: Non-contrast CT of the abdomen and pelvis was performed, with the following protocol: axial images, and reconstructed coronal and sagittal images. One of the following dose reduction techniques was utilized for this exam: Automated exposure control, adjustment of the mA and/or kV according to patient size, and use of iterative reconstruction. COMPARISON: No prior studies available for comparison. FINDINGS: Abdomen: Liver: is enlarged, showing homogeneous density. No focal lesions, cysts, or masses were identified. Gallbladder and Biliary System: The gallbladder is normal in size and shape. No wall thickening or pericholecystic fluid. It shows multiple dense small gallbladder stones. Pancreas: Pancreatic head, body, and tail are visualized and appear normal in size and density. No pancreatic masses or calcifications were noted. Spleen: Mild splenomegaly measuring 14.5 cm. No splenic lesions or masses were identified. A splenule is seen adjacent to it. Appendix: Submucosal lipomatosis of the appendix, with mild distension and without jasvir-appendiceal fat stranding, and without an appendicolith. No evidence of appendiceal abscess or perforation. Kidneys and Adrenal Glands: Both kidneys are normal in size, shape, and position. Cortical thickness is within normal limits. No dense renal calculi or hydronephrosis. No dense obstructing stones noted. Adrenal glands are unremarkable. Abdominal Aorta and Vessels: The abdominal aorta and major branches are patent without evidence of an aneurysm. Diffuse atherosclerotic changes are seen involving the aorta and its main branches. Pelvis: Urinary Bladder: Normal in contour and wall thickness. No intraluminal lesions. Intraluminal air lucency is noted possible post-interventional sequel for correlation with clinical data. Prostate: is enlarged. No masses or abnormal thickening. Seminal Vesicles: enlarged left seminal vesicle with surrounding fat stranding, suggesting left seminal vesiculitis. Peritoneal and Retroperitoneal Structures: No free fluid or abnormal fluid collections were identified within the abdomen or pelvis. No lymphadenopathy was noted. Bowel: The visualized bowel loops are normal in caliber and appearance. No evidence of bowel obstruction or wall thickening. Non-complicated descending colon and sigmoid diverticulosis is noted. Bones and Soft Tissues: Pelvic bones and soft tissues are unremarkable. No fractures or abnormal masses were identified. Spondylodegenerative changes of the lumbar spine. Diffuse osteopenic texture of the examined bones. Minimal retrolisthesis of L5 over S1. Old healed fracture is seen involving right 8th rib. IMPRESSION: 1. Urinary bladder intraluminal air lucency suggests a post-intervention sequel or emphysematous cystitis. Correlate with clinical and surgical data. 2. Enlarged left seminal vesicle with surrounding fat stranding, suggesting left seminal vesiculitis. Recommend clinical correlation with HI exam and transrectal ultrasound. 3. Mild enlarged prostate. 4. No obstructing dense stones. 5. Mild hepatomegaly. 6. Multiple small dense gallbladder stones. 7. Submucosal lipomatosis of the appendix, with mild distension and no fat stranding for correlation with clinical data. 8. Non-complicated descending colon and sigmoid diverticulosis. 9. Mild splenomegaly measuring 14.5 cm. Electronically signed by Lopez Benedict 09-19-2024 7:44 PM
[2024-09-19] MEDS: GABAPENTIN 100 MG CAP PO PRN (20:17)
[2024-09-20 07:24] LABS: Basophils # (auto) 0.01 K/uL (0.00-0.20); Basophils % (auto) 0.3 %; Eosinophils # (auto) 0.19 K/uL (0.00-0.50); Hematocrit (blood only) 23.3 % (42.0-52.0); Immature Granulocytes # (auto) 0.01 K/uL (0.01-0.20); Immature Granulocytes % (auto) 0.3 %; Lymphocytes # (auto) 0.59 K/uL (1.20-3.40); Lymphocytes % (auto) 15.5 %; Mean Corpuscular Hemoglobin 28.6 pg (25.0-34.0); Mean Corpuscular Hgb Conc 34.3 g/dL (32.0-36.0); Mean Corpuscular Volume 83.2 fL (80.0-100.0); Mean Platelet Volume 11.2 fL (9.4-12.4); Monocytes # (auto) 0.34 K/uL (0.11-0.59); Monocytes % (auto) 8.9 %; Neutrophils # (auto) 2.66 K/uL (1.40-6.50); Platelet Count 41 K/uL (130-400); RDW Coefficient of Variation 13.6 % (11.5-14.5); RDW Standard Deviation 41.8 fL (36.4-46.3)
[2024-09-20 07:42] LABS: Potassium 4.1 mmol/L (3.5-5.1)
[2024-09-20 07:43] LABS: Albumin Globulin Ratio 1.1 (0.9-2); Albumin Level 3.3 gm/dl (3.4-5.0); BUN Creatinine Ratio 21.1 (10-20); Bilirubin,Total 0.4 mg/dl (0.2-1.0); Calcium 8.6 mg/dl (8.6-10.3); Creatinine Clr Calc Pharmacy 50.3 ml/min; Magnesium 1.9 mg/dl (1.7-2.4); Phosphorus 3.3 mg/dl (2.5-4.9); Total Protein 6.3 gm/dl (6.0-8.3)
[2024-09-20] MEDS: LANTUS PER UNIT CHARGE SQ SCH (08:24)
--- NOTE | 2024-09-20 09:00 | Urology Progress Note ---
Date of Service September 20, 2024 Assessment & Plan (1) Gross hematuria: (2) Acute UTI: (3) Sepsis: Plan Afebrile with stable vitals Labs today show WBC 3.80, hemoglobin 8, creatinine 1.66 Urine culture 09/15 grew E.coli; Repeat x 2 no growth Voiding spontaneously, denies further episodes of hematuria CT abd pelvis from 09/19 reviewed and shows a small amount of urinary bladder intraluminal air suggesting emphysematous cystitis. Recommend urinary catheter placement for maximum bladder decompression in the setting of infection - he was agreeable. Will plan to maintain catheter for approximately 7-10 days. Will arrange outpatient follow-up with our service for catheter removal and cystoscopy to complete the hematuria work-up. Continue antibiotic therapy per final culture data. No acute intervention warranted. Urology will sign-off. Please call with any questions/concerns. Admission and Anticipated Discharge Date Admission Date: September 16, 2024 Subjective Pt seen at bedside today Awake and sitting in bedside chair on arrival No acute distress Overall feeling well No fever Denies any further episodes of hematuria No dysuria Review of Systems Constitutional: as per Subjective / HPI Genitourinary: + as per Subjective / HPI Physical Exam Constitutional: no acute distress Respiratory: no respiratory distress and no labored breathing Musculoskeletal: Head/Neck/Chest: normocephalic Skin: No visible rashes or lesions to exposed skin areas Neurologic: awake Psychiatric: A+Ox3, euthymic affect Results & Data Vital Signs (Past 12 Hours) Vital Signs Temp Pulse Pulse Resp BP BP Pulse Ox 09/20/24 07:44 37 C 74 125/69 91 09/20/24 05:34 87 09/20/24 02:58 37.1 C 73 16 124/69 96 09/19/24 23:21 36.9 C 79 18 120/67 94 09/19/24 22:02 88 O2 Del Method 09/20/24 07:44 Room Air 09/20/24 05:34 09/20/24 02:58 Room Air 09/19/24 23:21 Room Air 09/19/24 22:02 PG Care Time/CCT Total # of Minutes Spent Total Time Spent with Patient: Total time spent is greater than 50% in coordination of care (as documented) at patient's floor/unit and/or counseling patient: Coding Level of Care Code 12452 SUB INP/OBS CARE 2/35MIN Diagnoses Gross hematuria R31.0 Acute UTI N39.0 Sepsis A41.9
--- NOTE | 2024-09-20 14:30 | Discharge Summary ---
Discharge Summary Date of Service September 20, 2024 Principal Dx & Hospital Course #1 = Principal Diagnosis (1) Acute UTI: Plan Mr. Paula is a 74-year-old male with past medical history significant for type 2 diabetes, diabetic retinopathy, CKD stage III, dyslipidemia, diabetic polyneuropathy, iron overload transfusional, difficult airway for intubation, lung nodes, hypertension, nonischemic cardiomyopathy, GERD, obesity, myelodys plastic syndrome, pancytopenia comes because of fevers and malaise and found to have sepsis in the setting of acute cystitis. Sepsis due to acute cystitis 38.7 Temp, HR 108 with suspected infection based on UA and symptoms UA suggestive of infection, urine Cx grew mostly pansensitive e coli (ampcillin resistant ) CT abd/pelvis noting emphysematous cystitis, concern for seminal vesiculitis on the left and a mildly enlarged prostate Sepsis resolved with gentle IVF and abx Urology consulted, appreciate recs. Recommended/stated the following on day of discharge: "...Recommend urinary catheter placement for maximum bladder decompression in the setting of infection - he was agreeable. Will plan to maintain catheter for approximately 7-10 days. Will arrange outpatient follow-up with our service for catheter removal and cystoscopy to complete the hematuria work-up. Continue antibiotic therapy per final culture data. No acute intervention warranted..." Per Dr Dmitry Stevenson, can discharge with 7-10 days of abx and vang catheter. Pt discharged with ciprofloxacin 500mg BID for 7 more days Close Urology followup after discharge. Gross Hematuria Pt with multiple episodes UA repeated, repeat urine cultures NGTD CT abd/pelvis as above Urology consulted, appreciate recs. Noted the following as above Will arrange outpatient follow-up with our service for catheter removal and cystoscopy to complete the hematuria work-up. Constipation miralax prn CKD stage III, concern for possible LILIA Hyponatremia Baseline creatinine 1.5-1.7 creatinine as high as 1.9 Urine studies ordered, held lasix and lisinopril Cr 1.6 on discharge Resume home lasix on discharge On day of discharge, Holding home lisinopril 10mg until pcp followup in setting of acute on chronic kidney disease. BP stable at 120s/70s. Consider resuming at lower dose for cardiac benefit and if kidney function improved/stable. Acute on chronic anemia Myelodysplastic syndrome Acute on chronic thrombocytopenia Following with heme-onc, Dr Azael Mendoza and per daughter also onc at [facility] Currently on Imetelstat ,last dose was August 28. Dose was reduced because of thrombocytopenia. Per heme/onco "to transfuse if hemoglobin less than 7.5. Currently requiring 1 or 2 transfusions every week" Blood consented: Transfused 1 UPRBC on 09/17 for hgb 6.2, and 1 UPRBC on 09/18 for 7.1 hgb Hgb 8.0 on discharge, platelets stable in 40K range Reports symptomatic improvement Case discussed with Dr Azael Mendoza on day of discharge regarding pts med plans, he recommended the following: "...He is due on , we can check labs on that day and decide about it..." Close heme/onc followup on discharge Transfusion iron overload On Jadenu Chronic systolic CHF Nonobstructive CAD with 50% mid LAD lesion. Cath in 2021 EF 40 to 40% echo in 01/2022 EF 55% echo on 05/2023 On statin, Imdur and metoprolol On Lasix and Jardiance resumed Lasix on discharge PCP and cardiology f/u after discharge Hypertension Imdur, , metoprolol succinate . Resume Lasix on discharge lisinopril On day of discharge, Holding home lisinopril 10mg until pcp followup in setting of acute on chronic kidney disease. BP stable at 120s/70s. Consider resuming at lower dose for cardiac benefit and if kidney function improved/stable. Diabetes Continue home Lantus PCP f/u GERD Omeprazole at home IV PPI while admitted Notes For Next Care Provider As above Medication Changes From Visit Per Urology: antibiotics to complete 7-10 days of rx. Discharged with ciprofloxacin 500mg BID for 7 more days Holding home lisinopril 10mg until pcp followup in setting of acute on chronic kidney disease. BP stable at 120s/70s. Consider resuming at lower dose for cardiac benefit and if kidney function improved/stable. Admission HPI Per Admitting Provider 74-year-old male with past medical history significant for type 2 diabetes, diabetic retinopathy, CKD stage III, dyslipidemia, diabetic polyneuropathy, iron overload transfusional, difficult airway for intubation, lung nodes, hypertension, nonischemic cardiomyopathy, GERD, obesity, myelodysplastic syndrome, pancytopenia comes because of fevers and malaise and found to have UTI. Patient thinks he has urinary symptoms for several weeks. But today he had a fever. Has some malaise. In the ER initially was tachycardic and had a temp spike. Respiratory bio fire came back negative. Procalcitonin 0.8. UA is positive. Received cefepime. Currently resting comfortably. Hemodynamically stable. Daughter is in the room. Currently denies any headache. Says sometimes gets dizzy. Has a lot of runny nose. No sore throat. Has cough and bringing yellowish phlegm. No difficulty swallowing. No chest pain. No shortness of breath. Has some nausea. No abdominal pain. Bowel movements okay. Today had 1 episode of black stool. Past medical history. As mentioned above Past surgical history. Colonoscopy. Colonoscopy biopsy. Knee arthroscopy. Bilateral cataracts. Social history. . No smoking. No alcohol use. No drug use. Family history. Father had skin and prostate cancer. Heart disorder. Paternal grandmother had glaucoma. Admission Exam Per Admitting Provider General- Not in distress Head- atraumatic Eyes- PERRL. ENT- oropharynx clear Neck- supple, no JVD. Lungs- clear to auscultation no wheezing or crackles Heart- regular rhythm; no murmur, no gallop. Abdomen- normal bowel sounds, soft, nontender, no distension Extremities- b/l pretibial edema present, No erythema seen Neuro- alert, oriented PERRL, no facial palsy; no dysarthria; moves extremities Discharge Exam General: Alert, oriented. No acute distress Psych: Appropriate mood and affect HEENT: NC/AT CV: RRR Resp: Breath sounds clear bilaterally, no increased effort of breathing Abdomen:Soft, nontende Extremities: edema in lower extremities bilaterally. Updated Medication List Medication Instructions Recorded Confirmed Type atorvastatin 40 mg tablet 40 mg PO QAM 07/20/21 09/15/24 History lisinopril 10 mg tablet 10 mg PO QAM 07/20/21 09/15/24 History nitroglycerin 0.4 mg sublingual 0.4 mg sublingual UD PRN .chest 07/20/21 09/15/24 History tablet (Nitrostat) pain repaglinide 2 mg tablet 2 mg PO .WITH SNACK PRN as directed 07/20/21 09/15/24 History albuterol sulfate 90 mcg/actuation 1 inh inhalation QID PRN sob 02/11/22 09/15/24 History aerosol inhaler budesonide-formoterol HFA 160 1 inh inhalation BID PRN sob 02/11/22 09/15/24 History mcg-4.5 mcg/actuation aerosol inhaler (Symbicort) cyanocobalamin (vitamin B-12) 1,000 mcg PO QAM 02/11/22 09/15/24 History 1,000 mcg tablet loratadine 10 mg tablet 10 mg PO QAM 02/11/22 09/15/24 History omeprazole 20 mg capsule,delayed 20 mg PO QAM 02/11/22 09/15/24 History release pyridoxine (vitamin B6) 100 mg 100 mg PO QAM 02/11/22 09/15/24 History tablet cholecalciferol (vitamin D3) 25 2,000 unit PO QAM #30 caps 02/13/22 09/15/24 Rx mcg (1,000 unit) capsule isosorbide mononitrate 30 mg 30 mg PO QAM #30 tabs 02/13/22 09/15/24 Rx tablet,extended release 24 hr ondansetron HCl 4 mg tablet 4 mg PO BID PRN Nausea 11/09/22 09/15/24 History gabapentin 100 mg capsule 100 mg PO TID 05/17/24 09/15/24 History deferasirox 180 mg tablet 180 mg PO QAM 09/15/24 09/15/24 History deferasirox 360 mg tablet 1,080 mg PO QAM 09/15/24 09/15/24 History empagliflozin 25 mg tablet 25 mg PO QAM 09/15/24 09/15/24 History (Jardiance) folic acid 1 mg tablet 1 mg PO QAM 09/15/24 09/15/24 History furosemide 40 mg tablet 40 mg PO BID 09/15/24 09/15/24 History insulin glargine-yfgn 100 unit/mL 7 unit subcut [facility] 09/15/24 09/15/24 History (3 mL) subcutaneous pen metformin 500 mg tablet,extended 500 mg PO AMPM 09/15/24 09/15/24 History release 24 hr metoprolol succinate 25 mg 25 mg PO QAM 09/15/24 09/15/24 History tablet,extended release 24 hr montelukast 10 mg tablet 10 mg PO QAM 09/15/24 09/15/24 History repaglinide 2 mg tablet 4 mg PO AC 09/15/24 09/15/24 History ciprofloxacin HCl 500 mg tablet 500 mg PO BID #14 tabs 09/20/24 Rx Hospital Stay Data Consultations 09/15/24 22:40 ED Decision to Admit Stat 09/19/24 15:20 Consult Urology Routine Diagnostic Imagining Performed 09/19/24 16:28 CT Abd and Pelvis [CT abd pelvis wo con] Urgent Chest X-Ray 09/15/24 20:44 Exam(s): XR CXR 1 VIEW EXAM: XR Chest, 1 View CLINICAL HISTORY: Reason for exam: Sepsis. TECHNIQUE: Frontal view of the chest. COMPARISON: 02/13/2022. FINDINGS: A Port-A-Cath is noted with its tip in the region of the right atrium. Lungs: No consolidation. Pleural space: No pleural effusion is seen. No pneumothorax. Heart: The heart is enlarged.. Mediastinum: There is mild uncoiling of thoracic aorta.. Bones/joints: There are degenerative changes in the spine.. IMPRESSION: No acute pulmonary disease.. Electronically signed by: Solitario Cota MD 09/15/24 22:52 PM Abdomen/Pelvis CT 09/19/24 16:28 EXAM: CT abd pelvis wo con CLINICAL HISTORY: Hematuria, UTI. TECHNIQUE: Non-contrast CT of the abdomen and pelvis was performed, with the following protocol: axial images, and reconstructed coronal and sagittal images. One of the following dose reduction techniques was utilized for this exam: Automated exposure control, adjustment of the mA and/or kV according to patient size, and use of iterative reconstruction. COMPARISON: No prior studies available for comparison. FINDINGS: Abdomen: Liver: is enlarged, showing homogeneous density. No focal lesions, cysts, or masses were identified. Gallbladder and Biliary System: The gallbladder is normal in size and shape. No wall thickening or pericholecystic fluid. It shows multiple dense small gallbladder stones. Pancreas: Pancreatic head, body, and tail are visualized and appear normal in size and density. No pancreatic masses or calcifications were noted. Spleen: Mild splenomegaly measuring 14.5 cm. No splenic lesions or masses were identified. A splenule is seen adjacent to it. Appendix: Submucosal lipomatosis of the appendix, with mild distension and without jasvir-appendiceal fat stranding, and without an appendicolith. No evidence of appendiceal abscess or perforation. Kidneys and Adrenal Glands: Both kidneys are normal in size, shape, and position. Cortical thickness is within normal limits. No dense renal calculi or hydronephrosis. No dense obstructing stones noted. Adrenal glands are unremarkable. Abdominal Aorta and Vessels: The abdominal aorta and major branches are patent without evidence of an aneurysm. Diffuse atherosclerotic changes are seen involving the aorta and its main branches. Pelvis: Urinary Bladder: Normal in contour and wall thickness. No intraluminal lesions. Intraluminal air lucency is noted possible post-interventional sequel for correlation with clinical data. Prostate: is enlarged. No masses or abnormal thickening. Seminal Vesicles: enlarged left seminal vesicle with surrounding fat stranding, suggesting left seminal vesiculitis. Peritoneal and Retroperitoneal Structures: No free fluid or abnormal fluid collections were identified within the abdomen or pelvis. No lymphadenopathy was noted. Bowel: The visualized bowel loops are normal in caliber and appearance. No evidence of bowel obstruction or wall thickening. Non-complicated descending colon and sigmoid diverticulosis is noted. Bones and Soft Tissues: Pelvic bones and soft tissues are unremarkable. No fractures or abnormal masses were identified. Spondylodegenerative changes of the lumbar spine. Diffuse osteopenic texture of the examined bones. Minimal retrolisthesis of L5 over S1. Old healed fracture is seen involving right 8th rib. IMPRESSION: 1. Urinary bladder intraluminal air lucency suggests a post-intervention sequel or emphysematous cystitis. Correlate with clinical and surgical data. 2. Enlarged left seminal vesicle with surrounding fat stranding, suggesting left seminal vesiculitis. Recommend clinical correlation with CT exam and transrectal ultrasound. 3. Mild enlarged prostate. 4. No obstructing dense stones. 5. Mild hepatomegaly. 6. Multiple small dense gallbladder stones. 7. Submucosal lipomatosis of the appendix, with mild distension and no fat stranding for correlation with clinical data. 8. Non-complicated descending colon and sigmoid diverticulosis. 9. Mild splenomegaly measuring 14.5 cm. Electronically signed by Lopez Benedict 09-19-2024 7:44 PM Discharge Instructions Given to Patient (Per Discharging Provider) Mr. Paula, You were seen and treated for acute infections in your genitourinary system. You were seen by the urologist who recommended discharge home with the vang catheter in place and continued antibiotics to complete 10 days of symptoms. Please continue with the prescribed ciprofloxacin 500mg twice a day for 7 more days. Urology will contact you for followup with their office and to follow up on removal of the urinary catheter, and for further workup related to the blood in your urine. Your oncologist Dr Mendoza will follow up with you in the clinic on September 25. Your kidney function was elevated here and we held your home lisinopril and lasix which could make things worse. It appears that yur kidney fnction is closer to your baseline and you can resume your lasix at home. However, hold or do not take the lisinopril until you follow up with your primary care provider on September 26. they will determine whether you can resume that and at what dose, based on your labs and blood pressure. Please keep close follow up with your primary care provider after discharge. Please do not hesitate to come back to the emergency room if your symptoms worsen or return. It was a pleasure taking care of you while you were here. Total Time Total Time Spent Total Time Spent (In Minutes): 40
--- NOTE | 2024-09-20 16:00 | Hospitalist Progress Note ---
Date of Service September 20, 2024 Assessment & Plan (1) Acute UTI: Plan Mr. Paula is a 74-year-old male with past medical history significant for type 2 diabetes, diabetic retinopathy, CKD stage III, dyslipidemia, diabetic polyneuropathy, iron overload transfusional, difficult airway for intubation, lung nodes, hypertension, nonischemic cardiomyopathy, GERD, obesity, myelodysplastic syndrome, pancytopenia comes because of fevers and malaise and found to have sepsis in the setting of acute cystitis. Abdominal Pain LLQ, started on 09/20 Reproducible, associated with movement, started after a walk Pain meds prn Repeat CT abd/pelvis if persistent Continue to monitor Sepsis due to acute cystitis 38.7 Temp, HR 108 with suspected infection based on UA and symptoms UA suggestive of infection, urine Cx grew mostly pansensitive e coli (ampcillin resistant ) CT abd/pelvis noting emphysematous cystitis, concern for seminal vesiculitis on the left and a mildly enlarged prostate Sepsis resolved with gentle IVF and abx Urology consulted, appreciate recs. Recommended/stated the following on day of discharge: "...Recommend urinary catheter placement for maximum bladder decompression in the setting of infection - he was agreeable. Will plan to maintain catheter for approximately 7-10 days. Will arrange outpatient follow-up with our service for catheter removal and cystoscopy to complete the hematuria work-up. Continue antibiotic therapy per final culture data. No acute intervention warranted..." Per Dr Dmitry Stevenson, can discharge with 7-10 days of abx and vang catheter. Pt discharged with ciprofloxacin 500mg BID for 7 more days Close Urology followup after discharge. Gross Hematuria Pt with multiple episodes UA repeated, repeat urine cultures NGTD CT abd/pelvis as above Urology consulted, appreciate recs. Noted the following as above Will arrange outpatient follow-up with our service for catheter removal and cystoscopy to complete the hematuria work-up. Constipation miralax prn CKD stage III, concern for possible LILIA Hyponatremia Baseline creatinine 1.5-1.7 creatinine as high as 1.9 Urine studies ordered, held lasix and lisinopril Cr 1.6 on discharge Resume home lasix on discharge On day of discharge, Holding home lisinopril 10mg until pcp followup in setting of acute on chronic kidney disease. BP stable at 120s/70s. Consider resuming at lower dose for cardiac benefit and if kidney function improved/stable. Acute on chronic anemia Myelodysplastic syndrome Acute on chronic thrombocytopenia Following with heme-onc, Dr Azael Mendoza and per daughter also onc at [facility] Currently on Imetelstat ,last dose was August 28. Dose was reduced because of thrombocytopenia. Per heme/onco "to transfuse if hemoglobin less than 7.5. Currently requiring 1 or 2 transfusions every week" Blood consented: Transfused 1 UPRBC on 09/17 for hgb 6.2, and 1 UPRBC on 09/18 for 7.1 hgb Hgb 8.0 on discharge, platelets stable in 40K range Reports symptomatic improvement Case discussed with Dr Azael Mendoza on day of discharge regarding pts med plans, he recommended the following: "...He is due on , we can check labs on that day and decide about it..." Close heme/onc followup on discharge Transfusion iron overload On Jadenu Chronic systolic CHF Nonobstructive CAD with 50% mid LAD lesion. Cath in 2021 EF 40 to 40% echo in 01/2022 EF 55% echo on 05/2023 On statin, Imdur and metoprolol On Lasix and Jardiance resumed Lasix on discharge PCP and cardiology f/u after discharge Hypertension Imdur, , metoprolol succinate . Resume Lasix on discharge lisinopril On day of discharge, Holding home lisinopril 10mg until pcp followup in setting of acute on chronic kidney disease. BP stable at 120s/70s. Consider resuming at lower dose for cardiac benefit and if kidney function improved/stable. Diabetes Continue home Lantus PCP f/u GERD Omeprazole at home IV PPI while admitted Admission and Anticipated Discharge Date Admission Date: September 16, 2024 Subjective pt was seen multiple times during the day Multiple discussions with his daughter nurse zahira Paula as well Pt anxious for discharge and was about to go home when he developed left sided abdominal pain States it feels like an ache, started after he had been up walking Review of Systems Review of Systems: All systems reviewed & are unremarkable except as noted in Subjective Physical Exam Physical Exam: General: Alert, oriented. No acute distress Psych: Appropriate mood and affect HEENT: NC/AT CV: RRR Resp: Breath sounds clear bilaterally, no increased effort of breathing Abdomen:Soft, tender in LLQ Extremities: edema in lower extremities bilaterally. Results & Data Results & Data Vital Signs (Past 12 Hours) Vital Signs Temp Pulse Pulse Pulse Pulse Resp BP 09/20/24 15:30 36.6 C 72 71 99 H 16 121/09/20/24 14:52 09/20/24 11:31 36.6 C 71 16 121/09/20/24 07:44 37 C 74 09/20/24 05:34 87 BP Pulse Ox O2 Del Method 09/20/24 15:30 125/69 98 09/20/24 14:52 Room Air 09/20/24 11:31 98 Room Air 09/20/24 07:44 125/69 91 Room Air 09/20/24 05:34
[2024-09-20] MEDS: HYDROmorphone INJ 0.5 MG/0.5 ML SYR IV STA (16:25)
[2024-09-21] MEDS: MELATONIN 3 MG TAB PO PRN (02:24)
[2024-09-21 07:23] LABS: Eosinophils # (auto) 0.17 K/uL (0.00-0.50); Hemoglobin 8.5 g/dl (14.0-18.0); Immature Granulocytes # (auto) 0.01 K/uL (0.01-0.20); Immature Granulocytes % (auto) 0.2 %; Lymphocytes # (auto) 0.66 K/uL (1.20-3.40); Lymphocytes % (auto) 15.7 %; Mean Corpuscular Hemoglobin 28.5 pg (25.0-34.0); Mean Corpuscular Volume 83.9 fL (80.0-100.0); Mean Platelet Volume 11.2 fL (9.4-12.4); Monocytes # (auto) 0.37 K/uL (0.11-0.59); Monocytes % (auto) 8.8 %; Neutrophils # (auto) 2.99 K/uL (1.40-6.50); Neutrophils % (auto) 71.3 %; Platelet Count 43 K/uL (130-400); RDW Coefficient of Variation 13.5 % (11.5-14.5); RDW Standard Deviation 41.8 fL (36.4-46.3); Red Blood Count 2.98 M/uL (4.70-6.10)
[2024-09-21 07:42] VITALS: RESP 17
[2024-09-21 07:46] LABS: Albumin Globulin Ratio 1.1 (0.9-2); Albumin Level 3.5 gm/dl (3.4-5.0); Bilirubin,Total 0.4 mg/dl (0.2-1.0); Creatinine Clr Calc Pharmacy 54.2 ml/min; Globulin 3.2 gm/dl (2.5-4.0); Magnesium 1.9 mg/dl (1.7-2.4); Phosphorus 3.2 mg/dl (2.5-4.9); Potassium 4.6 mmol/L (3.5-5.1); Total Protein 6.7 gm/dl (6.0-8.3)
[2024-09-21 11:36] VITALS: BP 120/64; TEMP 97.3; O2SAT 95
[2024-09-21 12:16] VITALS: PULSE 95
--- NOTE | 2024-09-21 12:20 | Communication Note ---
Date of Service: September 21, 2024 For discharge summary: Please see updated discharge summary dated 09/20/24
== END 2024-09-21 13:10 | disposition home or self-care (01) | DRG 872 ==
LOC: ED 20:37 → 2N 09-16 02:19 → SUATTDRO 09-16 02:19 → 2N 09-16 03:15 → 2W 09-16 08:32